=== PATIENT | male | born 1930 | race Caucasian/White ===

== ENCOUNTER 2016-09-17 20:23 | Emergency (ER) | payer MEDICARE ==
[~2016-09-17] VITALS: Ht 172.7 cm; Wt 65.8 kg
[~2016-09-17 20:23] MED LIST: CEPH-264 PO; CIPR250T PO; CIPR500T PO; DIPH25CA3 PO; GABA-586 PO; HYDR-2666 PO; INSU100I17 SQ; INSU100I27 SQ; INSU100V8 SQ; OMEP20CA5 PO; ONDA8TAB12 PO; PHEN-318 PO; VALA500T PO
[2016-09-17 21:45] LABS: BASO % 2 % (0-3); EOS % 1 % (0-3); HEMATOCRIT 24.6 % (39.0-53.0); HEMOGLOBIN 8.7 g/dL (13.0-17.5); LYMPH # 0.2 x10^3/uL (1.0-4.8); LYMPH % 27 % (24-48); MEAN CORPUSCULAR HEMOGLOBIN 36 pg (25-35); MEAN CORPUSCULAR HGB CONC 35 g/dL (31-37); MEAN CORPUSCULAR VOLUME 101 fL (79-100); MONO % 3 % (0-9); NEUT % 67 % (31-73); PLATELET COUNT 129 x10^3/uL (140-400); RED BLOOD COUNT 2.43 x10^6/uL (4.30-5.70); RED CELL DISTRIBUTION WIDTH 22.6 % (11.5-14.5)
[2016-09-17 21:51] LABS: WHITE BLOOD COUNT 0.9 x10^3/uL (4.0-11.0)
[2016-09-17 22:04] LABS: CREATININE 1.4 mg/dL (0.7-1.3); GFR 47.8; POTASSIUM 4.2 mmol/L (3.5-5.1)
[2016-09-17 22:10] VITALS: BP 160/72
[2016-09-17 22:11] LABS: OBC FLU VALID
[2016-09-17 22:13] LABS: PLT ESTIMATE DECREASED (ADEQUATE)
[2016-09-17 22:14] LABS: ANISOCYTOSIS SLIGHT; POIKILOCYTOSIS SLIGHT
[2016-09-17] MEDS ORDERED: OSEL75CA PO (22:21)
--- NOTE | 2016-09-17 22:21 | PHYS DOC ---
Past Medical History Past Medical History: Cancer, Diabetes-Type II Additional Past Medical Histor: bone marrow and prostate cancer Past Surgical History: Coronary Bypass Surgery Additional Past Surgical Histo: STENTS 2010, PARTIAL KIDNEY REMOVAL (RIGHT SIDE ) Alcohol Use: None Drug Use: None Adult General Chief Complaint Chief Complaint: FEVER HPI HPI Patient is a 86 year old male who presents with family for evaluation of fever today. He notes 2 days of rhinorrhea, dry cough, sore throat, and slightly worse chronic body aches. Family also notes recent RUE abrasion that they have performed local wound care to prevent another episode of cellulitis. He denies headache, chest pain, dyspnea, abdominal pain, nausea or vomiting, diarrhea, dysuria, rash. Review of Systems Review of Systems Constitutional: Denies fever or chills [] Eyes: Denies change in visual acuity, redness, or eye pain [] HENT: Denies nasal congestion or sore throat [] Respiratory: Denies cough or shortness of breath [] Cardiovascular: No additional information not addressed in HPI [] GI: Denies abdominal pain, nausea, vomiting, bloody stools or diarrhea [] : Denies dysuria or hematuria [] Musculoskeletal: Denies back pain or joint pain [] Integument: Denies rash or skin lesions [] Neurologic: Denies headache, focal weakness or sensory changes [] Endocrine: Denies polyuria or polydipsia [] Allergies Allergies Allergies Coded Allergies Type Severity Reaction Last Updated Verified Iodinated Contrast Media - Oral and Allergy Intermediate BAD RASH 08/17/16 Yes Physical Exam Physical Exam Constitutional: Well developed, well nourished, no acute distress, non-toxic appearance. [] HENT: Normocephalic, atraumatic, bilateral external ears normal, oropharynx moist, no oral exudates, nose normal. [] Eyes: PERRLA, EOMI, conjunctiva normal, no discharge. [] Neck: Normal range of motion, supple, no stridor. [] Cardiovascular:Heart rate regular rhythm [] Lungs & Thorax: Bilateral breath sounds clear to auscultation [] Abdomen: Bowel sounds normal, soft, no tenderness. [] Skin: Warm, dry, no erythema, no rash. [] Back: No tenderness, no CVA tenderness. [] Extremities: No tenderness, ROM intact, no edema. Has abrasion to right forearm with surrounding ecchymosis and no induration/crepitance/warmth/fluctuance [] Neurologic: Alert and oriented X 3, normal motor function, normal sensory function, no focal deficits noted. [] Psychologic: Affect normal, judgement normal, mood normal. [] Current Patient Data Vital Signs Vital Signs Date Time Temp Pulse Resp B/P Pulse Ox O2 Delivery O2 Flow Rate FiO2 09/17/16 22:10 83 22 160/72 97 Room Air 09/17/16 20:35 100.0 100.0 Lab Values Laboratory Tests Test 09/17/16 20:40 09/17/16 21:42 White Blood Count 0.9x10^3/uL (4.0-11.0) *L Red Blood Count 2.43x10^6/uL (4.30-5.70) L Hemoglobin 8.7g/dL (13.0-17.5) L Hematocrit 24.6% (39.0-53.0) L Mean Corpuscular Volume 101fL (79-100) H Mean Corpuscular Hemoglobin 36pg (25-35) H Mean Corpuscular Hemoglobin Concent 35g/dL (31-37) Red Cell Distribution Width 22.6% (11.5-14.5) H Platelet Count 129x10^3/uL (140-400) L Neutrophils (%) (Auto) 67% (31-73) Lymphocytes (%) (Auto) 27% (24-48) Monocytes (%) (Auto) 3% (0-9) Eosinophils (%) (Auto) 1% (0-3) Basophils (%) (Auto) 2% (0-3) Neutrophils # (Auto) 0.6x10^3uL (1.8-7.7) L Lymphocytes # (Auto) 0.2x10^3/uL (1.0-4.8) L Monocytes # (Auto) 0.0x10^3/uL (0.0-1.1) Eosinophils # (Auto) 0.0x10^3/uL (0.0-0.7) Basophils # (Auto) 0.0x10^3/uL (0.0-0.2) Segmented Neutrophils % 80% (35-66) H Lymphocytes % 16% (24-48) L Monocytes % 4% (0-10) Platelet Estimate Decreased (ADEQUATE) Poikilocytosis Slight Anisocytosis Slight Sodium Level 137mmol/L (136-145) Potassium Level 4.2mmol/L (3.5-5.1) Chloride Level 102mmol/L (98-107) Carbon Dioxide Level 26mmol/L (21-32) Anion Gap 9 (6-14) Blood Urea Nitrogen 24mg/dL (8-26) Creatinine 1.4mg/dL (0.7-1.3) H Estimated GFR (Cockcroft-Gault) 47.8 Glucose Level 231mg/dL (70-99) H Calcium Level 9.0mg/dL (8.5-10.1) Influenza Type A Antigen Positive (NEGATIVE) Influenza Type B Antigen Negative (NEGATIVE) Laboratory Tests 09/17/16 20:40 Laboratory Tests 09/17/16 20:40 Radiology/Procedures Radiology/Procedures Chest xray as interpreted by me with no acute cardiopulmonary disease process Course & Med Decision Making Course & Med Decision Making Pertinent Labs and Imaging studies reviewed. (See chart for details) Tested positive for influenza. Workup is otherwise unremarkable other than pancytopenia related to chemotherapy. He appears well and would like to go home. Recommend Tamiflu. Return precautions given. He and family understand and agree with plan. Dragon Disclaimer Dragon Disclaimer This electronic medical record was generated, in whole or in part, using a voice recognition dictation system. Departure Departure Impression: Primary Impression: Influenza A Disposition: HOME, SELF-CARE Condition: STABLE Referrals: EFREN BURNETT MD (PCP) Patient Instructions: Influenza, Adult, [id number] Additional Instructions: Take Tamiflu to help shorten flu symptoms. Follow up with your primary care doctor within 1 week. Return for any concerns. Scripts Oseltamivir Phosphate (Tamiflu)75 Mg Capsule1 Cap PO BID #10 CAP Prov:Rancho CURRY MD 09/17/16 Rancho CURRY MD Sep 17, 2016 22:21
--- NOTE | 2016-09-18 08:05 | RAD ---
Chest, 2 views, 09/17/2016: History: Cough and fever Comparison is made to a study from 02/11/2016. There has been a previous median sternotomy. The heart is within normal limits in size. There is calcific plaquing of the aorta. There is scarring over the right pulmonary apex. There are additional scattered parenchymal scars. No acute infiltrate is seen. There is a calcified granuloma in the right base. There is no evidence of pleural fluid. The bony structures are demineralized. IMPRESSION: 1. Parenchymal scarring. 2. No acute cardiopulmonary abnormality is detected with no significant change since 02/11/2016.
== END 2016-09-17 22:54 | disposition home or self-care (01) ==
LOC: ER 20:23
DX: J09.X2 Influenza due to identified novel influenza A virus with other respiratory manifestations (principal); E11.9 Type 2 diabetes mellitus without complications; Z95.1 Presence of aortocoronary bypass graft; Z95.5 Presence of coronary angioplasty implant and graft; Z91.041 Radiographic dye allergy status
CPT/HCPCS: 36415; 71020; 80048; 85007; 85027; 87804; 99285-25

== ENCOUNTER → 2016-11-01 | Outpatient (CLI) | payer MEDICARE ==
[2016-11-01] VITALS (7 sets, daily range): BP systolic 110–157; BP diastolic 53–61
[~2016-11-01] MED LIST changes: +ACETAMINOPHEN 325 MG TABLET. PO ONE; +DIPHENHYDRAMINE HCL 25 MG CAPSULE PO ONE; +FUROSEMIDE 20 MG/2 ML VIAL. IVP ONE; +OSEL75CA PO
[2016-11-01 08:49] LABS: HEMATOCRIT 22.2 % (39.0-53.0); HEMOGLOBIN 7.6 g/dL (13.0-17.5)
== END | disposition home or self-care (01) ==
LOC: OPS 08:05
PROVIDERS: ATTEND Internal Medicine Hematology & Oncology
DX: D46.9 Myelodysplastic syndrome, unspecified (principal)
CPT/HCPCS: 36415; 85014; 85018; 86850; 86900; 86901; 86920; P9016; Q0163; 36430; 96374

== ENCOUNTER 2017-02-01 18:24 | Inpatient (IN) | payer MEDICARE ==
[~2017-02-01] VITALS: Ht 170.2 cm; Wt 63.1 kg
[~2017-02-01 18:24] MED LIST changes: -ACETAMINOPHEN 325 MG TABLET. PO ONE; -DIPHENHYDRAMINE HCL 25 MG CAPSULE PO ONE; -FUROSEMIDE 20 MG/2 ML VIAL. IVP ONE; -HYDR-2666 PO; +HYDR-2758 PO
[2017-02-01 19:22] LABS: BASO % 1 % (0-3); EOS % 1 % (0-3); HEMATOCRIT 21.1 % (39.0-53.0); HEMOGLOBIN 7.4 g/dL (13.0-17.5); LYMPH # 0.2 x10^3/uL (1.0-4.8); LYMPH % 30 % (24-48); MEAN CORPUSCULAR HEMOGLOBIN 31 pg (25-35); MEAN CORPUSCULAR HGB CONC 35 g/dL (31-37); MEAN CORPUSCULAR VOLUME 90 fL (79-100); MONO % 16 % (0-9); NEUT % 53 % (31-73); PLATELET COUNT 51 x10^3/uL (140-400); RED BLOOD COUNT 2.35 x10^6/uL (4.30-5.70); RED CELL DISTRIBUTION WIDTH 15.9 % (11.5-14.5)
[2017-02-01 19:32] LABS: INR 1.3 (0.8-1.1); PROTHROMBIN TIME PATIENT 15.5 SEC (11.7-14.0); WHITE BLOOD COUNT 0.5 x10^3/uL (4.0-11.0)
[2017-02-01 19:34] LABS: CALCIUM 8.8 mg/dL (8.5-10.1); CREATININE 1.5 mg/dL (0.7-1.3); GFR 44.2; POTASSIUM 4.3 mmol/L (3.5-5.1)
[2017-02-01 19:41] LABS: ALBUMIN 2.9 g/dL (3.4-5.0); ALBUMIN/GLOBULIN RATIO 0.8 (1.0-1.7); MAGNESIUM 1.7 mg/dL (1.8-2.4); TOTAL BILIRUBIN 0.5 mg/dL (0.2-1.0); TOTAL PROTEIN 6.6 g/dL (6.4-8.2)
[2017-02-01] MEDS ORDERED: ACETAMINOPHEN 325 MG TABLET. PO PRN (20:00)
[2017-02-01] MEDS ORDERED: PIPERACILLIN/TAZOBACTAM 3.375 GM in IV NORMAL SALINE 50ML 50 ML IV ONE (20:00)
[2017-02-01] MEDS ORDERED: ONDANSETRON PF 4 MG/2 ML VIAL. IV PRN ×2 (20:00→20:15)
[2017-02-01 20:08] LABS: PLT ESTIMATE DECREASED (ADEQUATE)
[2017-02-01 20:12] LABS: TOXIC GRANULATION MOD
[2017-02-01] MEDS ORDERED: PIP/TAZO PER PHARMACY MC PRN (20:15)
[2017-02-01] MEDS ORDERED: DEXTROSE 50% 25 GM / 50ML DISP.SYRIN. IV PRN (20:15)
[2017-02-01] MEDS ORDERED: traMADol 50 MG TABLET PO PRN (20:15)
[2017-02-01] MEDS ORDERED: MAGNESIUM SULFATE 2GM 50 ML IV ONE (20:15)
[2017-02-01] MEDS ORDERED: DOCUSATE SODIUM 100 MG CAPSULE. PO PRN (20:15)
[2017-02-01] MEDS ORDERED: ALBUTEROL SULFATE 2.5 MG/3 ML NEBU. NEB PRN (20:15)
[2017-02-01] MEDS ORDERED: VANCOMYCIN 1.5 GM in IV NORMAL SALINE 500ML BAG 500 ML IV ONE (20:15)
[2017-02-01] MEDS ORDERED: hydrALAZINE 20 MG/ML VIAL. IVP PRN (20:15)
[2017-02-01] MEDS ORDERED: MORPHINE SULFATE 2 MG/ML DISP.SYRIN. IV PRN (20:15)
--- NOTE | 2017-02-01 20:22 | PDOC1 ---
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 Valle came to ER for fever. His daughter contributes to the history. She said he has been doing chemo with dr. Valle almost qweek, showed me the labs , usually WBC <1, last time 0.6, Hb about 8, gets 2u PRBC if <8, PLT last time 60s. Pt was found T 102 at home, cough with clear sputum x1week. no chest pain, dysuria, skin rash or wound. Has some nausea ,mild vomiting today, fell, not lost of consciousness. Also very weak. in ER, T 99.9, WBC 0.5, ANC 0.3, Hb 7.4, plt 51 Past Medical History Cardiovascular: CAD, HTN Heme/Onc: Other Endocrine: Diabetes Past Surgical History Past Surgical History: CABG Family History Family History: Hypertension Social History Smoke: Quit ALCOHOL: none Drugs: None Current Medications Current Medications Current Medications Medications (Trade) Dose Ordered Sig/Khadra Start Time Stop Time Status Last Admin Dose Admin Acetaminophen (Tylenol) 650 mg PRN Q4HRS PRN 02/01/17 20:00 02/02/17 19:59 Levofloxacin/ Dextrose 100 ml @ 100 mls/hr 1X ONCE 02/01/17 20:00 02/01/17 20:59 Ondansetron HCl (Zofran) 4 mg PRN Q8HRS PRN 02/01/17 20:00 02/02/17 19:59 Piperacillin Sod/ Tazobactam Sod 3.375 gm/Sodium Chloride 50 ml @ 100 mls/hr 1X ONCE 02/01/17 20:00 02/01/17 20:29 Tbo-Filgrastim (Granix) 300 mcg QHS 02/01/17 21:00 UNV Vancomycin HCl (Vanco Per Pharmacy) 1 each PRN DAILY PRN 02/01/17 20:00 UNV Vancomycin HCl 1.5 gm/Sodium Chloride 500 ml @ 250 mls/hr 1X ONCE 02/01/17 20:15 02/01/17 22:14 Allergies Allergies Allergies Coded Allergies Type Severity Reaction Last Updated Verified Iodinated Contrast- Oral and IV Dye Allergy Intermediate BAD RASH 01/20/17 Yes ROS Review of System CONSTITUTIONAL: No fever or chills EYES: No recent changes SKIN: No rash or itching CARDIOVASCULAR: No chest pain, syncope, palpitations, or edema RESPIRATORY: No SOB or cough GASTROINTESTINAL: No nausea, vomiting or abdominal pain NEUROLOGICAL: No headaches or weakness ENDOCRINE: No cold or heat intolerance GENITOURINARY: No urgency or frequency of urination MUSCULOSKELETAL: No back pain or joint pain LYMPHATICS: No enlarged lymph nodes PSYCHIATRIC: No anxiety or depression Physical Exam Physical Exam GEN.: No apparent distress. Alert and oriented. looks pale, but pleasant. HEENT: Head is normocephalic, atraumatic NECK: Supple. LUNGS: bl coarse bs HEART: RRR, S1, S2 present. Peripheral pulses intact ABDOMEN: Soft, nontender. Positive bowel sounds. EXTREMITIES: Without any cyanosis. NEUROLOGIC: Normal speech, normal tone PSYCHIATRIC: Normal affect, normal mood. SKIN: No ulcerations Vitals Vitals Vital Signs Date Time Temp Pulse Resp B/P (MAP) Pulse Ox O2 Delivery O2 Flow Rate FiO2 02/01/17 18:47 99.9 89 18 106/51 (69) 98 Room Air 99.9 Labs Labs Laboratory Tests Test 02/01/17 19:05 White Blood Count 0.5 x10^3/uL (4.0-11.0) Red Blood Count 2.35 x10^6/uL (4.30-5.70) Hemoglobin 7.4 g/dL (13.0-17.5) Hematocrit 21.1 % (39.0-53.0) Mean Corpuscular Volume 90 fL (79-100) Mean Corpuscular Hemoglobin 31 pg (25-35) Mean Corpuscular Hemoglobin Concent 35 g/dL (31-37) Red Cell Distribution Width 15.9 % (11.5-14.5) Platelet Count 51 x10^3/uL (140-400) Neutrophils (%) (Auto) 53 % (31-73) Lymphocytes (%) (Auto) 30 % (24-48) Monocytes (%) (Auto) 16 % (0-9) Eosinophils (%) (Auto) 1 % (0-3) Basophils (%) (Auto) 1 % (0-3) Neutrophils # (Auto) 0.3 x10^3uL (1.8-7.7) Lymphocytes # (Auto) 0.2 x10^3/uL (1.0-4.8) Monocytes # (Auto) 0.1 x10^3/uL (0.0-1.1) Eosinophils # (Auto) 0.0 x10^3/uL (0.0-0.7) Basophils # (Auto) 0.0 x10^3/uL (0.0-0.2) Segmented Neutrophils % 41 % (35-66) Band Neutrophils % 21 % (0-9) Lymphocytes % 33 % (24-48) Monocytes % 2 % (0-10) Myelocytes % 3 % (0-0) Toxic Granulation Mod Dohle Bodies Few Platelet Estimate Decreased (ADEQUATE) Prothrombin Time 15.5 SEC (11.7-14.0) Prothromb Time International Ratio 1.3 (0.8-1.1) Activated Partial Thromboplast Time 33 SEC (24-38) Sodium Level 134 mmol/L (136-145) Potassium Level 4.3 mmol/L (3.5-5.1) Chloride Level 100 mmol/L (98-107) Carbon Dioxide Level 21 mmol/L (21-32) Anion Gap 13 (6-14) Blood Urea Nitrogen 29 mg/dL (8-26) Creatinine 1.5 mg/dL (0.7-1.3) Estimated GFR (Cockcroft-Gault) 44.2 BUN/Creatinine Ratio 19 (6-20) Glucose Level 239 mg/dL (70-99) Lactic Acid Level 3.1 mmol/L (0.4-2.0) Calcium Level 8.8 mg/dL (8.5-10.1) Magnesium Level 1.7 mg/dL (1.8-2.4) Total Bilirubin 0.5 mg/dL (0.2-1.0) Aspartate Amino Transf (AST/SGOT) 42 U/L (15-37) Alanine Aminotransferase (ALT/SGPT) 64 U/L (16-63) Alkaline Phosphatase 69 U/L (46-116) Creatine Kinase 80 U/L (39-308) Troponin I Quantitative 0.029 ng/mL (0.000-0.055) Total Protein 6.6 g/dL (6.4-8.2) Albumin 2.9 g/dL (3.4-5.0) Albumin/Globulin Ratio 0.8 (1.0-1.7) Laboratory Tests Test 02/01/17 19:05 White Blood Count 0.5 x10^3/uL (4.0-11.0) Red Blood Count 2.35 x10^6/uL (4.30-5.70) Hemoglobin 7.4 g/dL (13.0-17.5) Hematocrit 21.1 % (39.0-53.0) Mean Corpuscular Volume 90 fL (79-100) Mean Corpuscular Hemoglobin 31 pg (25-35) Mean Corpuscular Hemoglobin Concent 35 g/dL (31-37) Red Cell Distribution Width 15.9 % (11.5-14.5) Platelet Count 51 x10^3/uL (140-400) Neutrophils (%) (Auto) 53 % (31-73) Lymphocytes (%) (Auto) 30 % (24-48) Monocytes (%) (Auto) 16 % (0-9) Eosinophils (%) (Auto) 1 % (0-3) Basophils (%) (Auto) 1 % (0-3) Neutrophils # (Auto) 0.3 x10^3uL (1.8-7.7) Lymphocytes # (Auto) 0.2 x10^3/uL (1.0-4.8) Monocytes # (Auto) 0.1 x10^3/uL (0.0-1.1) Eosinophils # (Auto) 0.0 x10^3/uL (0.0-0.7) Basophils # (Auto) 0.0 x10^3/uL (0.0-0.2) Segmented Neutrophils % 41 % (35-66) Band Neutrophils % 21 % (0-9) Lymphocytes % 33 % (24-48) Monocytes % 2 % (0-10) Myelocytes % 3 % (0-0) Toxic Granulation Mod Dohle Bodies Few Platelet Estimate Decreased (ADEQUATE) Prothrombin Time 15.5 SEC (11.7-14.0) Prothromb Time International Ratio 1.3 (0.8-1.1) Activated Partial Thromboplast Time 33 SEC (24-38) Sodium Level 134 mmol/L (136-145) Potassium Level 4.3 mmol/L (3.5-5.1) Chloride Level 100 mmol/L (98-107) Carbon Dioxide Level 21 mmol/L (21-32) Anion Gap 13 (6-14) Blood Urea Nitrogen 29 mg/dL (8-26) Creatinine 1.5 mg/dL (0.7-1.3) Estimated GFR (Cockcroft-Gault) 44.2 BUN/Creatinine Ratio 19 (6-20) Glucose Level 239 mg/dL (70-99) Lactic Acid Level 3.1 mmol/L (0.4-2.0) Calcium Level 8.8 mg/dL (8.5-10.1) Magnesium Level 1.7 mg/dL (1.8-2.4) Total Bilirubin 0.5 mg/dL (0.2-1.0) Aspartate Amino Transf (AST/SGOT) 42 U/L (15-37) Alanine Aminotransferase (ALT/SGPT) 64 U/L (16-63) Alkaline Phosphatase 69 U/L (46-116) Creatine Kinase 80 U/L (39-308) Troponin I Quantitative 0.029 ng/mL (0.000-0.055) Total Protein 6.6 g/dL (6.4-8.2) Albumin 2.9 g/dL (3.4-5.0) Albumin/Globulin Ratio 0.8 (1.0-1.7) VTE Prophylaxis Ordered VTE Prophylaxis Devices: Yes VTE Pharmacological Prophylaxi: No Assessment/Plan Assessment/Plan neutropenia fever with possible PNA pancytopenia with MDS on chemo h/o CAD with CABG HTN DM2 ON lantus 20u qhs lactate acidosis sepsis with Possible PNA hypomagnesemia ckd3 mild malnutrition mild elevated transaminitis plan: ID, onco consult 2u PRBC as per onco cont home meds no dvt ppx neutropenic isolation add vanco, zosyn for now, fu ua, ucx, bcx cough meds levemir 10u qhs, ssi for now replete Mag labs tmr ptot admit >2nights talked to family, FC for now NAVEED MAGDALENO MD Feb 01, 2017 20:22
[2017-02-01] MEDS ORDERED: IV NORMAL SALINE 1000ML BAG 1,000 ML IV ONE (21:30)
--- NOTE | 2017-02-01 21:32 | PHYS DOC ---
Past Medical History Past Medical History: Cancer, Diabetes-Type II Additional Past Medical Histor: bone marrow and prostate cancer Past Surgical History: Coronary Bypass Surgery Additional Past Surgical Histo: RENAL STENTS 2010 (RIGHT SIDE) Alcohol Use: None Drug Use: None Adult General Chief Complaint Chief Complaint: FEVER HPI HPI Patient is a 86 year old male presenting to the emergency department for evaluation of fever of 102 at home but was given Tylenol before coming to her emergency Department now he is afebrile. His a history of mild dysplastic syndrome and he is on chemotherapy currently and he says that he has been coughing but the cough is mostly nonproductive. He is in good spirits and appears nontoxic overall. Review of Systems Review of Systems Constitutional: + fever, chills [] Eyes: Denies change in visual acuity, redness, or eye pain [] HENT: Denies nasal congestion or sore throat [] Respiratory: + cough, No shortness of breath [] Cardiovascular: No additional information not addressed in HPI [] GI: Denies abdominal pain, nausea, vomiting, bloody stools or diarrhea [] : Denies dysuria or hematuria [] Musculoskeletal: Denies back pain or joint pain [] Integument: Denies rash or skin lesions [] Neurologic: Denies headache, focal weakness or sensory changes [] Allergies Allergies Allergies Coded Allergies Type Severity Reaction Last Updated Verified Iodinated Contrast- Oral and IV Dye Allergy Intermediate BAD RASH 01/20/17 Yes Physical Exam Physical Exam Constitutional: Well developed, well nourished, no acute distress, non-toxic appearance. [] HENT: Normocephalic, atraumatic, bilateral external ears normal, oropharynx moist, no oral exudates, nose normal. [] Eyes: PERRLA, EOMI, conjunctiva pale, no discharge. [] Neck: Normal range of motion, no tenderness, supple, no stridor. [] Cardiovascular:Heart rate regular rhythm, no murmur [] Lungs & Thorax: Bilateral breath sounds clear to auscultation [] Abdomen: Bowel sounds normal, soft, no tenderness, no masses, no pulsatile masses. [] Skin: Warm, dry, no erythema, no rash. [] Back: No tenderness, no CVA tenderness. [] Extremities: No tenderness, no cyanosis, no clubbing, ROM intact, no edema. [] Neurologic: Alert and oriented X 3, normal motor function, normal sensory function, no focal deficits noted. [] Current Patient Data Vital Signs Vital Signs Date Time Temp Pulse Resp B/P (MAP) Pulse Ox O2 Delivery O2 Flow Rate FiO2 02/01/17 18:47 99.9 89 18 106/51 (69) 98 Room Air 99.9 Lab Values Laboratory Tests Test 02/01/17 19:05 White Blood Count 0.5 x10^3/uL (4.0-11.0) *L Red Blood Count 2.35 x10^6/uL (4.30-5.70) L Hemoglobin 7.4 g/dL (13.0-17.5) L Hematocrit 21.1 % (39.0-53.0) L Mean Corpuscular Volume 90 fL (79-100) Mean Corpuscular Hemoglobin 31 pg (25-35) Mean Corpuscular Hemoglobin Concent 35 g/dL (31-37) Red Cell Distribution Width 15.9 % (11.5-14.5) H Platelet Count 51 x10^3/uL (140-400) L Neutrophils (%) (Auto) 53 % (31-73) Lymphocytes (%) (Auto) 30 % (24-48) Monocytes (%) (Auto) 16 % (0-9) H Eosinophils (%) (Auto) 1 % (0-3) Basophils (%) (Auto) 1 % (0-3) Neutrophils # (Auto) 0.3 x10^3uL (1.8-7.7) L Lymphocytes # (Auto) 0.2 x10^3/uL (1.0-4.8) L Monocytes # (Auto) 0.1 x10^3/uL (0.0-1.1) Eosinophils # (Auto) 0.0 x10^3/uL (0.0-0.7) Basophils # (Auto) 0.0 x10^3/uL (0.0-0.2) Segmented Neutrophils % 41 % (35-66) Band Neutrophils % 21 % (0-9) H Lymphocytes % 33 % (24-48) Monocytes % 2 % (0-10) Myelocytes % 3 % (0-0) H Toxic Granulation Mod Dohle Bodies Few Platelet Estimate Decreased (ADEQUATE) Prothrombin Time 15.5 SEC (11.7-14.0) H Prothrombin Time INR 1.3 (0.8-1.1) H PTT 33 SEC (24-38) Sodium Level 134 mmol/L (136-145) L Potassium Level 4.3 mmol/L (3.5-5.1) Chloride Level 100 mmol/L (98-107) Carbon Dioxide Level 21 mmol/L (21-32) Anion Gap 13 (6-14) Blood Urea Nitrogen 29 mg/dL (8-26) H Creatinine 1.5 mg/dL (0.7-1.3) H Estimated GFR (Cockcroft-Gault) 44.2 BUN/Creatinine Ratio 19 (6-20) Glucose Level 239 mg/dL (70-99) H Lactic Acid Level 3.1 mmol/L (0.4-2.0) H Calcium Level 8.8 mg/dL (8.5-10.1) Phosphorus Level 3.2 mg/dL (2.6-4.7) Magnesium Level 1.7 mg/dL (1.8-2.4) L Total Bilirubin 0.5 mg/dL (0.2-1.0) Aspartate Amino Transferase (AST) 42 U/L (15-37) H Alanine Aminotransferase (ALT) 64 U/L (16-63) H Alkaline Phosphatase 69 U/L (46-116) Creatine Kinase 80 U/L (39-308) Troponin I Quantitative 0.029 ng/mL (0.000-0.055) Total Protein 6.6 g/dL (6.4-8.2) Albumin 2.9 g/dL (3.4-5.0) L Albumin/Globulin Ratio 0.8 (1.0-1.7) L Laboratory Tests 02/01/17 19:05 Laboratory Tests 02/01/17 19:05 EKG EKG [] Radiology/Procedures Radiology/Procedures CX-ray shows right middle lobe pneumonia Course & Med Decision Making Course & Med Decision Making Patient is neutropenic febrile and has pneumonia with an elevated lactic acid and pancytopenia. Patient will be treated aggressively with fluids Granix, blood transfusion H Antibiotics and admitted for further observation and treatment. Patient and family aware and agreeable with plan. Dragon Disclaimer Dragon Disclaimer This electronic medical record was generated, in whole or in part, using a voice recognition dictation system. Departure Departure Impression: Primary Impression: HCAP (healthcare-associated pneumonia) Additional Impressions: Sepsis Pancytopenia Lactic acid acidosis Disposition: 09 ADMITTED INPATIENT Admitting Physician: Gucci Mercedes Condition: IMPROVED Referrals: EFREN BURNETT MD (PCP) Problem Qualifiers SARAI DUNCAN DO Feb 01, 2017 21:32
[2017-02-01] MEDS: VANCOMYCIN PER PHARMACY MC PRN ×2 (21:38→21:43)
[2017-02-01 23:00] VITALS: BP 106/45
[2017-02-01] MEDS: diphenhydrAMINE HCL 25 MG CAPSULE PO SCH (23:13)
[2017-02-01] MEDS: GABAPENTIN 300 MG CAPSULE. PO SCH (23:13)
[2017-02-01] MEDS: PIPERACILLIN/TAZOBACTAM 2.25 GM in IV NORMAL SALINE 50ML 50 ML IV SCH (23:14)
[2017-02-01] MEDS: TBO-FILGRASTIM 300 MCG/0.5 ML SYRINGE. SQ SCH (23:14)
[2017-02-01] MEDS: INSULIN DETEMIR 300 UNITS/3 ML INSULN.PEN. SQ SCH (23:18)
[2017-02-01 23:45] LABS: BILIRUBIN,URINE NEGATIVE (NEG); GLUCOSE,URINE 250 mg/dL (NEG); NITRITE,URINE NEGATIVE (NEG); PH,URINE 5.5; PROTEIN,URINE NEGATIVE (NEG-TRACE); UROBILINOGEN,URINE 0.2 mg/dL (0.2 mg/dL)
[2017-02-01 23:50] LABS: BACTERIA,URINE 0 /HPF (0-FEW); RBC,URINE 0 /HPF (0-2); WBC,URINE OCC /HPF (0-4)
[2017-02-02] VITALS (14 sets, daily range): BP systolic 87–128; BP diastolic 41–58
--- NOTE | 2017-02-02 05:00 | ACF ---
Admission Forms Criteria PNEUMONIA, HOSPITAL-ACQUIRED AND ATELECTASIS Clinical Indications for Inpatient Care (Place 'X' for any and all applicable criteria): Ongoing inpatient care may be indicated for hospital-acquired atelectasis or pneumonia[N] with ANY ONE of the following(2)(5)(47)(48)(49): [ ]I. Mechanical ventilation [N] [ ]II. Temperature less than 35 degrees C (95 degrees F) or greater than 39.5 degrees C (103.1 degrees F) [ ]III. Tachypnea (eg, respiratory rate greater than 30 breaths per minute) [X]IV. Hemodynamic instability [ ]V. Respiratory distress [ ]. Significant hypoxemia as indicated by ANY ONE of the following: [ ]a) Previously normal respiratory status with ANY ONE of the following: [ ]i) SaO2 less than 90% or PO2 less than 60 mm Hg (8.0 kPa )) on room air [ ]ii) Oxygen required to keep SaO2 greater than 90% [ ]b) Chronic baseline hypoxemia with significant deterioration (eg, O2 saturation decrease more than 5%) [ ]c) Required supplemental oxygen performable only in acute inpatient setting [ ]VII. Significant hypoventilation as indicated by ANY ONE of the following: [ ]a) Previously normal with PCO2 greater than 42 mm Hg (5.6 kPa) and pH less than 7.35 [ ]b) Documented PCO2 increase greater than 5 mm Hg (0.7 kPa) from disease baseline [ ]VIII.Severe secretion production requiring frequent suctioning Extended stay beyond goal length of stay for primary condition may be needed until ALL of the following are present(28)(29): [ ]a) Microbiologic cause of infection identified and appropriate antibiotic treatment in place, or satisfactory clinical response to empiric antibiotic therapy [ ]b) Hemodynamic stability [ ]c) No requirement for supplemental oxygen performable only in acute inpatient setting [ ]d) Chest tube absent or chest catheter management regimen established for next level of care [ ]e) Suctioning, pulmonary toilet, or other therapy performable at a lower level of care [ ]f) Fever absent, improved, or manageable at lower level of care [ ]g) Medical comorbidities manageable at a lower level of care The original [facility] content created by [employer] has been revised. The portions of the content which have been revised are identified through the use of italic text or in bold, and [facility] has neither reviewed nor approved the modified material. All other unmodified content is copyright [facility] Please see references footnoted in the original [facility] edition 2016 Admission Criteria Met?: Yes GILES ARANA Feb 02, 2017 05:00
[2017-02-02] MEDS: PIPERACILLIN/TAZOBACTAM 2.25 GM in IV NORMAL SALINE 50ML 50 ML IV SCH ×2 (05:45→12:46)
[2017-02-02 06:28] LABS: BASO % 0 % (0-3); EOS % 1 % (0-3); HEMATOCRIT 24.3 % (39.0-53.0); HEMOGLOBIN 8.5 g/dL (13.0-17.5); LYMPH # 0.3 x10^3/uL (1.0-4.8); LYMPH % 41 % (24-48); MEAN CORPUSCULAR HEMOGLOBIN 32 pg (25-35); MEAN CORPUSCULAR HGB CONC 35 g/dL (31-37); MEAN CORPUSCULAR VOLUME 91 fL (79-100); MONO % 9 % (0-9); NEUT % 50 % (31-73); PLATELET COUNT 41 x10^3/uL (140-400); RED BLOOD COUNT 2.67 x10^6/uL (4.30-5.70); RED CELL DISTRIBUTION WIDTH 16.6 % (11.5-14.5)
[2017-02-02 06:41] LABS: WHITE BLOOD COUNT 0.7 x10^3/uL (4.0-11.0)
[2017-02-02 06:57] LABS: ALBUMIN 2.5 g/dL (3.4-5.0); ALBUMIN/GLOBULIN RATIO 0.9 (1.0-1.7); CALCIUM 8.1 mg/dL (8.5-10.1); CREATININE 1.4 mg/dL (0.7-1.3); GFR 47.8; POTASSIUM 3.9 mmol/L (3.5-5.1); TOTAL BILIRUBIN 1.2 mg/dL (0.2-1.0); TOTAL PROTEIN 5.4 g/dL (6.4-8.2)
--- NOTE | 2017-02-02 08:08 | RAD ---
Chest radiograph 02/01/2017 at 1858 hours Indication: Cough and shortness of breath with fever Comparison: Chest radiograph 09/17/2016 Technique: Single portable upright view of the chest is provided. Findings: Median sternotomy wires are identified in the mediastinum. Cardiac mediastinal silhouette is borderline enlarged. There is airspace opacity in the right middle lobe new from the prior examination. Strandy density at the left lung base may represent subsegmental atelectasis and/or infiltrate. No pleural effusions. No pulmonary vascular congestion or pneumothorax. Mild emphysematous changes are present. There is demineralization of the visualized osseous structures. Impression: 1. Right middle lobe airspace disease compatible with pneumonia. Recommend 4-6 week follow-up radiograph to ensure resolution. 2. Left basilar airspace disease may represent atelectasis and/or multifocal infiltrate. Dr. Rodrigues was aware of this finding at 0433 hours on 02/02/2017.
--- NOTE | 2017-02-02 08:10 | PDOC ---
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 HTN DM2 ON lantus 20u qhs lactate acidosis sepsis with Possible PNA hypomagnesemia ckd3 mild malnutrition mild elevated transaminitis History of Present Illness History of Present Illness Feels better as per pt and dtr COUnts: WBC 0.7 from 0.5 PLAtelets steady at high 50s (baseline 60s) HGb up to 8.5 from 7 .4 after 2 pRBC CReat stable at 1.4 Official read CXR still pending PE: Dec BS sec to poor effort, but no wheezes, crackles PLAN: Await CXR Send sputum if good specimen (though this is usually low yoeld) Add pT/OT if not yet ordered COnt DVT prophy Dw pt and dtr Vitals Vitals Vital Signs Date Time Temp Pulse Resp B/P (MAP) Pulse Ox O2 Delivery O2 Flow Rate FiO2 02/02/17 07:00 98.4 83 18 110/53 (72) 91 Room Air 98.4 Physical Exam General: Alert, Oriented X3, Cooperative Heart: Regular rate, Normal S1, Normal S2 Lungs: Other (normal air entry) Abdomen: Normal bowel sounds, Soft Extremities: No clubbing, No cyanosis Skin: No rashes, No breakdown Labs LABS Laboratory Tests Test 02/01/17 19:05 02/01/17 23:30 02/02/17 06:10 02/02/17 07:47 White Blood Count 0.5 x10^3/uL (4.0-11.0) 0.7 x10^3/uL (4.0-11.0) Red Blood Count 2.35 x10^6/uL (4.30-5.70) 2.67 x10^6/uL (4.30-5.70) Hemoglobin 7.4 g/dL (13.0-17.5) 8.5 g/dL (13.0-17.5) Hematocrit 21.1 % (39.0-53.0) 24.3 % (39.0-53.0) Mean Corpuscular Volume 90 fL (79-100) 91 fL (79-100) Mean Corpuscular Hemoglobin 31 pg (25-35) 32 pg (25-35) Mean Corpuscular Hemoglobin Concent 35 g/dL (31-37) 35 g/dL (31-37) Red Cell Distribution Width 15.9 % (11.5-14.5) 16.6 % (11.5-14.5) Platelet Count 51 x10^3/uL (140-400) 41 x10^3/uL (140-400) Neutrophils (%) (Auto) 53 % (31-73) 50 % (31-73) Lymphocytes (%) (Auto) 30 % (24-48) 41 % (24-48) Monocytes (%) (Auto) 16 % (0-9) 9 % (0-9) Eosinophils (%) (Auto) 1 % (0-3) 1 % (0-3) Basophils (%) (Auto) 1 % (0-3) 0 % (0-3) Neutrophils # (Auto) 0.3 x10^3uL (1.8-7.7) 0.3 x10^3uL (1.8-7.7) Lymphocytes # (Auto) 0.2 x10^3/uL (1.0-4.8) 0.3 x10^3/uL (1.0-4.8) Monocytes # (Auto) 0.1 x10^3/uL (0.0-1.1) 0.1 x10^3/uL (0.0-1.1) Eosinophils # (Auto) 0.0 x10^3/uL (0.0-0.7) 0.0 x10^3/uL (0.0-0.7) Basophils # (Auto) 0.0 x10^3/uL (0.0-0.2) 0.0 x10^3/uL (0.0-0.2) Segmented Neutrophils % 41 % (35-66) Band Neutrophils % 21 % (0-9) Lymphocytes % 33 % (24-48) Monocytes % 2 % (0-10) Myelocytes % 3 % (0-0) Toxic Granulation Mod Dohle Bodies Few Platelet Estimate Decreased (ADEQUATE) Prothrombin Time 15.5 SEC (11.7-14.0) Prothromb Time International Ratio 1.3 (0.8-1.1) Activated Partial Thromboplast Time 33 SEC (24-38) Sodium Level 134 mmol/L (136-145) 139 mmol/L (136-145) Potassium Level 4.3 mmol/L (3.5-5.1) 3.9 mmol/L (3.5-5.1) Chloride Level 100 mmol/L (98-107) 105 mmol/L (98-107) Carbon Dioxide Level 21 mmol/L (21-32) 21 mmol/L (21-32) Anion Gap 13 (6-14) 13 (6-14) Blood Urea Nitrogen 29 mg/dL (8-26) 25 mg/dL (8-26) Creatinine 1.5 mg/dL (0.7-1.3) 1.4 mg/dL (0.7-1.3) Estimated GFR (Cockcroft-Gault) 44.2 47.8 BUN/Creatinine Ratio 19 (6-20) 18 (6-20) Glucose Level 239 mg/dL (70-99) 174 mg/dL (70-99) Lactic Acid Level 3.1 mmol/L (0.4-2.0) 1.9 mmol/L (0.4-2.0) Calcium Level 8.8 mg/dL (8.5-10.1) 8.1 mg/dL (8.5-10.1) Phosphorus Level 3.2 mg/dL (2.6-4.7) Magnesium Level 1.7 mg/dL (1.8-2.4) 2.2 mg/dL (1.8-2.4) Total Bilirubin 0.5 mg/dL (0.2-1.0) 1.2 mg/dL (0.2-1.0) Aspartate Amino Transf (AST/SGOT) 42 U/L (15-37) 40 U/L (15-37) Alanine Aminotransferase (ALT/SGPT) 64 U/L (16-63) 54 U/L (16-63) Alkaline Phosphatase 69 U/L (46-116) 59 U/L (46-116) Creatine Kinase 80 U/L (39-308) Troponin I Quantitative 0.029 ng/mL (0.000-0.055) Total Protein 6.6 g/dL (6.4-8.2) 5.4 g/dL (6.4-8.2) Albumin 2.9 g/dL (3.4-5.0) 2.5 g/dL (3.4-5.0) Albumin/Globulin Ratio 0.8 (1.0-1.7) 0.9 (1.0-1.7) Urine Collection Type Unknown Urine Color Yellow Urine Clarity Clear Urine pH 5.5 Urine Specific [place] 1.020 Urine Protein Negative mg/dL (NEG-TRACE) Urine Glucose (UA) 250 mg/dL (NEG) Urine Ketones (Stick) Negative mg/dL (NEG) Urine Blood Negative (NEG) Urine Nitrite Negative (NEG) Urine Bilirubin Negative (NEG) Urine Urobilinogen Dipstick 0.2 mg/dL (0.2 mg/dL) Urine Leukocyte Esterase Negative (NEG) Urine RBC 0 /HPF (0-2) Urine WBC Occ /HPF (0-4) Urine Squamous Epithelial Cells None /LPF Urine Bacteria 0 /HPF (0-FEW) Urine Hyaline Casts Few /HPF Urine Mucus Marked /LPF Glucose (Fingerstick) 153 mg/dL (70-99) Review of Systems Review of Systems denies 14 pt reviewed Assessment and Plan Assessmemt and Plan Problems Medical Problems: (1) Lactic acid acidosis Status: Acute (2) Pancytopenia Status: Acute (3) Sepsis Status: Acute Problems: Comment Review of Relevant I have reviewed the following items dora (where applicable) has been applied. Labs Laboratory Tests Test 02/01/17 19:05 02/01/17 23:30 02/02/17 06:10 02/02/17 07:47 White Blood Count 0.5 x10^3/uL (4.0-11.0) 0.7 x10^3/uL (4.0-11.0) Red Blood Count 2.35 x10^6/uL (4.30-5.70) 2.67 x10^6/uL (4.30-5.70) Hemoglobin 7.4 g/dL (13.0-17.5) 8.5 g/dL (13.0-17.5) Hematocrit 21.1 % (39.0-53.0) 24.3 % (39.0-53.0) Mean Corpuscular Volume 90 fL (79-100) 91 fL (79-100) Mean Corpuscular Hemoglobin 31 pg (25-35) 32 pg (25-35) Mean Corpuscular Hemoglobin Concent 35 g/dL (31-37) 35 g/dL (31-37) Red Cell Distribution Width 15.9 % (11.5-14.5) 16.6 % (11.5-14.5) Platelet Count 51 x10^3/uL (140-400) 41 x10^3/uL (140-400) Neutrophils (%) (Auto) 53 % (31-73) 50 % (31-73) Lymphocytes (%) (Auto) 30 % (24-48) 41 % (24-48) Monocytes (%) (Auto) 16 % (0-9) 9 % (0-9) Eosinophils (%) (Auto) 1 % (0-3) 1 % (0-3) Basophils (%) (Auto) 1 % (0-3) 0 % (0-3) Neutrophils # (Auto) 0.3 x10^3uL (1.8-7.7) 0.3 x10^3uL (1.8-7.7) Lymphocytes # (Auto) 0.2 x10^3/uL (1.0-4.8) 0.3 x10^3/uL (1.0-4.8) Monocytes # (Auto) 0.1 x10^3/uL (0.0-1.1) 0.1 x10^3/uL (0.0-1.1) Eosinophils # (Auto) 0.0 x10^3/uL (0.0-0.7) 0.0 x10^3/uL (0.0-0.7) Basophils # (Auto) 0.0 x10^3/uL (0.0-0.2) 0.0 x10^3/uL (0.0-0.2) Segmented Neutrophils % 41 % (35-66) Band Neutrophils % 21 % (0-9) Lymphocytes % 33 % (24-48) Monocytes % 2 % (0-10) Myelocytes % 3 % (0-0) Toxic Granulation Mod Dohle Bodies Few Platelet Estimate Decreased (ADEQUATE) Prothrombin Time 15.5 SEC (11.7-14.0) Prothromb Time International Ratio 1.3 (0.8-1.1) Activated Partial Thromboplast Time 33 SEC (24-38) Sodium Level 134 mmol/L (136-145) 139 mmol/L (136-145) Potassium Level 4.3 mmol/L (3.5-5.1) 3.9 mmol/L (3.5-5.1) Chloride Level 100 mmol/L (98-107) 105 mmol/L (98-107) Carbon Dioxide Level 21 mmol/L (21-32) 21 mmol/L (21-32) Anion Gap 13 (6-14) 13 (6-14) Blood Urea Nitrogen 29 mg/dL (8-26) 25 mg/dL (8-26) Creatinine 1.5 mg/dL (0.7-1.3) 1.4 mg/dL (0.7-1.3) Estimated GFR (Cockcroft-Gault) 44.2 47.8 BUN/Creatinine Ratio 19 (6-20) 18 (6-20) Glucose Level 239 mg/dL (70-99) 174 mg/dL (70-99) Lactic Acid Level 3.1 mmol/L (0.4-2.0) 1.9 mmol/L (0.4-2.0) Calcium Level 8.8 mg/dL (8.5-10.1) 8.1 mg/dL (8.5-10.1) Phosphorus Level 3.2 mg/dL (2.6-4.7) Magnesium Level 1.7 mg/dL (1.8-2.4) 2.2 mg/dL (1.8-2.4) Total Bilirubin 0.5 mg/dL (0.2-1.0) 1.2 mg/dL (0.2-1.0) Aspartate Amino Transf (AST/SGOT) 42 U/L (15-37) 40 U/L (15-37) Alanine Aminotransferase (ALT/SGPT) 64 U/L (16-63) 54 U/L (16-63) Alkaline Phosphatase 69 U/L (46-116) 59 U/L (46-116) Creatine Kinase 80 U/L (39-308) Troponin I Quantitative 0.029 ng/mL (0.000-0.055) Total Protein 6.6 g/dL (6.4-8.2) 5.4 g/dL (6.4-8.2) Albumin 2.9 g/dL (3.4-5.0) 2.5 g/dL (3.4-5.0) Albumin/Globulin Ratio 0.8 (1.0-1.7) 0.9 (1.0-1.7) Urine Collection Type Unknown Urine Color Yellow Urine Clarity Clear Urine pH 5.5 Urine Specific [place] 1.020 Urine Protein Negative mg/dL (NEG-TRACE) Urine Glucose (UA) 250 mg/dL (NEG) Urine Ketones (Stick) Negative mg/dL (NEG) Urine Blood Negative (NEG) Urine Nitrite Negative (NEG) Urine Bilirubin Negative (NEG) Urine Urobilinogen Dipstick 0.2 mg/dL (0.2 mg/dL) Urine Leukocyte Esterase Negative (NEG) Urine RBC 0 /HPF (0-2) Urine WBC Occ /HPF (0-4) Urine Squamous Epithelial Cells None /LPF Urine Bacteria 0 /HPF (0-FEW) Urine Hyaline Casts Few /HPF Urine Mucus Marked /LPF Glucose (Fingerstick) 153 mg/dL (70-99) Laboratory Tests Test 02/01/17 19:05 02/01/17 23:30 02/02/17 06:10 02/02/17 07:47 White Blood Count 0.5 x10^3/uL (4.0-11.0) 0.7 x10^3/uL (4.0-11.0) Red Blood Count 2.35 x10^6/uL (4.30-5.70) 2.67 x10^6/uL (4.30-5.70) Hemoglobin 7.4 g/dL (13.0-17.5) 8.5 g/dL (13.0-17.5) Hematocrit 21.1 % (39.0-53.0) 24.3 % (39.0-53.0) Mean Corpuscular Volume 90 fL (79-100) 91 fL (79-100) Mean Corpuscular Hemoglobin 31 pg (25-35) 32 pg (25-35) Mean Corpuscular Hemoglobin Concent 35 g/dL (31-37) 35 g/dL (31-37) Red Cell Distribution Width 15.9 % (11.5-14.5) 16.6 % (11.5-14.5) Platelet Count 51 x10^3/uL (140-400) 41 x10^3/uL (140-400) Neutrophils (%) (Auto) 53 % (31-73) 50 % (31-73) Lymphocytes (%) (Auto) 30 % (24-48) 41 % (24-48) Monocytes (%) (Auto) 16 % (0-9) 9 % (0-9) Eosinophils (%) (Auto) 1 % (0-3) 1 % (0-3) Basophils (%) (Auto) 1 % (0-3) 0 % (0-3) Neutrophils # (Auto) 0.3 x10^3uL (1.8-7.7) 0.3 x10^3uL (1.8-7.7) Lymphocytes # (Auto) 0.2 x10^3/uL (1.0-4.8) 0.3 x10^3/uL (1.0-4.8) Monocytes # (Auto) 0.1 x10^3/uL (0.0-1.1) 0.1 x10^3/uL (0.0-1.1) Eosinophils # (Auto) 0.0 x10^3/uL (0.0-0.7) 0.0 x10^3/uL (0.0-0.7) Basophils # (Auto) 0.0 x10^3/uL (0.0-0.2) 0.0 x10^3/uL (0.0-0.2) Segmented Neutrophils % 41 % (35-66) Band Neutrophils % 21 % (0-9) Lymphocytes % 33 % (24-48) Monocytes % 2 % (0-10) Myelocytes % 3 % (0-0) Toxic Granulation Mod Dohle Bodies Few Platelet Estimate Decreased (ADEQUATE) Prothrombin Time 15.5 SEC (11.7-14.0) Prothromb Time International Ratio 1.3 (0.8-1.1) Activated Partial Thromboplast Time 33 SEC (24-38) Sodium Level 134 mmol/L (136-145) 139 mmol/L (136-145) Potassium Level 4.3 mmol/L (3.5-5.1) 3.9 mmol/L (3.5-5.1) Chloride Level 100 mmol/L (98-107) 105 mmol/L (98-107) Carbon Dioxide Level 21 mmol/L (21-32) 21 mmol/L (21-32) Anion Gap 13 (6-14) 13 (6-14) Blood Urea Nitrogen 29 mg/dL (8-26) 25 mg/dL (8-26) Creatinine 1.5 mg/dL (0.7-1.3) 1.4 mg/dL (0.7-1.3) Estimated GFR (Cockcroft-Gault) 44.2 47.8 BUN/Creatinine Ratio 19 (6-20) 18 (6-20) Glucose Level 239 mg/dL (70-99) 174 mg/dL (70-99) Lactic Acid Level 3.1 mmol/L (0.4-2.0) 1.9 mmol/L (0.4-2.0) Calcium Level 8.8 mg/dL (8.5-10.1) 8.1 mg/dL (8.5-10.1) Phosphorus Level 3.2 mg/dL (2.6-4.7) Magnesium Level 1.7 mg/dL (1.8-2.4) 2.2 mg/dL (1.8-2.4) Total Bilirubin 0.5 mg/dL (0.2-1.0) 1.2 mg/dL (0.2-1.0) Aspartate Amino Transf (AST/SGOT) 42 U/L (15-37) 40 U/L (15-37) Alanine Aminotransferase (ALT/SGPT) 64 U/L (16-63) 54 U/L (16-63) Alkaline Phosphatase 69 U/L (46-116) 59 U/L (46-116) Creatine Kinase 80 U/L (39-308) Troponin I Quantitative 0.029 ng/mL (0.000-0.055) Total Protein 6.6 g/dL (6.4-8.2) 5.4 g/dL (6.4-8.2) Albumin 2.9 g/dL (3.4-5.0) 2.5 g/dL (3.4-5.0) Albumin/Globulin Ratio 0.8 (1.0-1.7) 0.9 (1.0-1.7) Urine Collection Type Unknown Urine Color Yellow Urine Clarity Clear Urine pH 5.5 Urine Specific [place] 1.020 Urine Protein Negative mg/dL (NEG-TRACE) Urine Glucose (UA) 250 mg/dL (NEG) Urine Ketones (Stick) Negative mg/dL (NEG) Urine Blood Negative (NEG) Urine Nitrite Negative (NEG) Urine Bilirubin Negative (NEG) Urine Urobilinogen Dipstick 0.2 mg/dL (0.2 mg/dL) Urine Leukocyte Esterase Negative (NEG) Urine RBC 0 /HPF (0-2) Urine WBC Occ /HPF (0-4) Urine Squamous Epithelial Cells None /LPF Urine Bacteria 0 /HPF (0-FEW) Urine Hyaline Casts Few /HPF Urine Mucus Marked /LPF Glucose (Fingerstick) 153 mg/dL (70-99) Medications Current Medications Tbo-Filgrastim (Granix) 300 mcg QHS SQ Last administered on 02/01/17 23:14; Start 02/01/17 at 21:00 Levofloxacin/ Dextrose 100 ml @ 100 mls/hr 1X ONCE IV Last administered on 20:53; Start 02/01/17 at 20:00; Stop 02/01/17 at 20:59; Status DC Vancomycin HCl (Vanco Per Pharmacy) 1 each PRN DAILY PRN MC SEE COMMENTS Last administered on 02/01/17 21:43; Start 02/01/17 at 20:00 Piperacillin Sod/ Tazobactam Sod 3.375 gm/Sodium Chloride 50 ml @ 100 mls/hr 1X ONCE IV Last administered on 02/01/17 20:52; Start 02/01/17 at 20:00; Stop 02/01/17 at 20:29; Status DC Ondansetron HCl (Zofran) 4 mg PRN Q8HRS PRN IV NAUSEA/VOMITING; Start 02/01/17 at 20:00; Stop 02/02/17 at 19:59 Acetaminophen (Tylenol) 650 mg PRN Q4HRS PRN PO FEVER Last administered on 02/01 23:41; Start 02/01/17 at 20:00; Stop 02/02/17 at 19:59 Vancomycin HCl 1.5 gm/Sodium Chloride 500 ml @ 250 mls/hr 1X ONCE IV Last administered on 02/01/17 20:15; Start 02/01/17 at 20:15; Stop 02/01/17 at 22:14 ; Status DC Diphenhydramine HCl (Benadryl) 25 mg QHS PO Last administered on 02/01/17 23: 13; Start 02/01/17 at 21:00 Insulin Detemir (Levemir) 10 units QHS SQ Last administered on 02/01/17 23:18 ; Start 02/01/17 at 21:00 Gabapentin (Neurontin) 300 mg BID PO Last administered on 02/01/17 23:13; Start 02/01/17 at 21:00 Pantoprazole Sodium (Protonix) 40 mg DAILYAC PO ; Start 02/02/17 at 07:30 Acetaminophen (Tylenol) 650 mg PRN Q6HRS PRN PO FEVER; Start 02/01/17 at 20:15 Ondansetron HCl (Zofran) 4 mg PRN Q6HRS PRN IV NAUSEA/VOMITING; Start 02/01/17 at 20:15 Morphine Sulfate 2 mg PRN Q2HR PRN IV PAIN; Start 02/01/17 at 20:15 Tramadol HCl (Ultram) 50 mg PRN Q6HRS PRN PO PAIN; Start 02/01/17 at 20:15 Hydralazine HCl (Apresoline) 10 mg PRN Q4HRS PRN IVP ELEVATED BP, SEE COMMENTS ; Start 02/01/17 at 20:15 Docusate Sodium (Colace) 100 mg PRN DAILY PRN PO CONSTIPATION; Start 02/01/17 at 20:15 Piperacillin Sod/ Tazobactam Sod (Zosyn Per Pharmacy) 1 each PRN DAILY PRN MC SEE COMMENTS; Start 02/01/17 at 20:15 Insulin Aspart (NovoLOG) 0-9 UNITS TIDWMEALS SQ ; Start 02/02/17 at 08:00 Dextrose (Dextrose 50%-Water Syringe) 12.5 gm PRN Q15MIN PRN IV SEE COMMENTS; Start 02/01/17 at 20:15 Albuterol Sulfate (Ventolin Neb Soln) 2.5 mg PRN Q4HRS PRN NEB SHORTNESS OF BREATH; Start 02/01/17 at 20:15 Guaifenesin (Robitussin) 200 mg PRN Q4HRS PRN PO COUGH; Start 02/01/17 at 20:15 Magnesium Sulfate/ Dextrose 50 ml @ 25 mls/hr 1X ONCE IV Last administered on 02/01/17 20:53; Start 02/01/17 at 20:15; Stop 02/01/17 at 22:14; Status DC Sodium Chloride 1,000 ml @ 1,000 mls/hr 1X ONCE IV Last administered on 21:30; Start 02/01/17 at 21:30; Stop 02/01/17 at 22:29; Status DC Piperacillin Sod/ Tazobactam Sod 2.25 gm/Sodium Chloride 50 ml @ 100 mls/hr Q6HRS IV Last administered on 02/02/17 05:45; Start 02/02/17 at 00:00 Vancomycin HCl 1 gm/Sodium Chloride 250 ml @ 250 mls/hr Q24H IV ; Start at 20:00 Vancomycin HCl 1 each 1X ONCE MC ; Start 02/03/17 at 19:30; Stop 02/03/17 at 19 :31 Active Scripts Active Tamiflu (Oseltamivir Phosphate) 75 Mg Capsule 1 Cap PO BID Reported Zofran Odt (Ondansetron) 8 Mg Tab.rapdis 1 Tab PO PRN PRN Diphenhydramine Hcl 25 Mg Capsule 25 Mg PO QHS Levemir Flextouch (Insulin Detemir) 100 Unit/1 Ml Insuln.pen 10 Unit SQ QHS Prilosec (Omeprazole) 20 Mg Capsule.dr 20 Mg PO DAILY Gabapentin 300 Mg Capsule 300 Mg PO BID Vitals/I & O Vital Sign - Last 24 Hours 02/01/17 02/01/17 02/01/17 02/01/17 18:47 19:30 20:00 20:30 Temp 99.9 99.9 Pulse 89 74 72 86 Resp 18 32 31 30 B/P (MAP) 106/51 (69) 111/53 (72) 129/58 (81) 140/55 (83) Pulse Ox 98 97 98 89 O2 Delivery Room Air Room Air 02/01/17 02/01/17 02/01/17 02/01/17 21:00 21:30 23:00 23:53 Temp 101.0 101.0 Pulse 92 92 94 Resp 24 25 20 B/P (MAP) 127/72 (90) 145/62 (89) 106/45 (65) Pulse Ox 96 93 O2 Delivery Room Air Room Air 02/02/17 02/02/17 02/02/1717 01:15 01:30 02:30 03:14 Temp 99.7 99.0 98.8 98.8 99.7 99.0 98.8 98.8 Pulse 84 84 81 81 Resp 18 18 20 20 B/P (MAP) 107/46 99/45 87/46 87/46 (60) Pulse Ox 94 O2 Delivery Room Air 02/02/17 02/02/17 02/02/17 02/02/17 03:30 03:52 04:07 05:07 Temp 99.7 99.7 99.3 98.2 99.7 99.7 99.3 98.2 Pulse 77 77 80 87 Resp 20 20 20 20 B/P (MAP) 94/41 94/41 98/47 110/56 02/02/17 02/02/17 06:00 07:00 Temp 99.3 98.4 99.3 98.4 Pulse 83 83 Resp 20 18 B/P (MAP) 116/52 110/53 (72) Pulse Ox 91 O2 Delivery Room Air Intake and Output 02/01/17 02/01/17 02/02/17 15:00 23:00 07:00 Intake Total 50 ml 3280 ml Output Total 250 ml Balance 50 ml 3030 ml PANKAJ FUENTES MD Feb 02, 2017 08:10
[2017-02-02] MEDS: GABAPENTIN 300 MG CAPSULE. PO SCH ×2 (08:29→20:27)
[2017-02-02] MEDS: PANTOPRAZOLE 40 MG TABLET.DR. PO SCH (08:30)
--- NOTE | 2017-02-02 08:31 | PDOC2 ---
IM Consult Reason for consult Sepsis Referring physician Dr. 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 Valle. His last dose was a month ago and his daughter states he will not receive any more as it is not making a difference. Received Neupogen or neulasta last week and neupogen last pm in ER His daughter contributes to the history he began to feel weak yesterday . His has had a small cold. 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 No bug bites or tick bites . Pt was found T 102 at home yesterday, cough with clear sputum x1week. no chest pain, dysuria, skin rash or wound. Has some nausea, mild vomiting today, fell - more of a slide down and bump only his arm, no los of consciousness. in ER, T 99.9, WBC 0.5, ANC 0.3, Hb 7.4, plt 51 During the interview he aspirated some water and then vomited into the garbage can. State he is ok Problems: Past Medical History Cardiovascular: CAD, HTN Heme/Onc: Other Endocrine: Diabetes Past Surgical History Past Surgical History: CABG Past Family History Family History: Hypertension Review of Symptoms Review of Symptoms General ROS: positive for - fever, weakness Psychological ROS: negative Ophthalmic ROS: negative ENT ROS: negative -no sinus drainage Allergy and Immunology ROS: negative Hematology and Lymphatic: no bleeding Endocrine ROS: negative Respiratory ROS: no dyspnea. Cardiovascular ROS: no chest pain or dyspnea on exertion Gastrointestinal ROS: no abdominal pain, change in bowel habits, or black or bloody stools Genito-Urinary ROS: no dysuria, trouble voiding, or hematuria Musculoskeletal ROS: no pain Neurological ROS: negative Dermatological ROS: no rash Medications Current Medications Acetaminophen (Tylenol) 650 mg PRN Q4HRS PRN PO FEVER Last administered on 02/01t 23:41; Start 02/01/17 at 20:00; Stop 02/02/17 at 19:59 Acetaminophen (Tylenol) 650 mg PRN Q6HRS PRN PO FEVER; Start 02/01/17 at 20:15 Albuterol Sulfate (Ventolin Neb Soln) 2.5 mg PRN Q4HRS PRN NEB SHORTNESS OF BREATH; Start 02/01/17 at 20:15 Dextrose (Dextrose 50%-Water Syringe) 12.5 gm PRN Q15MIN PRN IV SEE COMMENTS; Start 02/01/17 at 20:15 Diphenhydramine HCl (Benadryl) 25 mg QHS PO Last administered on 02/01/17 23: 13; Start 02/01/17 at 21:00 Docusate Sodium (Colace) 100 mg PRN DAILY PRN PO CONSTIPATION; Start 02/01/17 at 20:15 Gabapentin (Neurontin) 300 mg BID PO Last administered on 02/01/17 23:13; Start 02/01/17 at 21:00 Guaifenesin (Robitussin) 200 mg PRN Q4HRS PRN PO COUGH; Start 02/01/17 at 20:15 Hydralazine HCl (Apresoline) 10 mg PRN Q4HRS PRN IVP ELEVATED BP, SEE COMMENTS ; Start 02/01/17 at 20:15 Insulin Aspart (NovoLOG) 0-9 UNITS TIDWMEALS SQ ; Start 02/02/17 at 08:00 Insulin Detemir (Levemir) 10 units QHS SQ Last administered on 02/01/17 23:18 ; Start 02/01/17 at 21:00 Levofloxacin/ Dextrose 100 ml @ 100 mls/hr 1X ONCE IV Last administered on 20:53; Start 02/01/17 at 20:00; Stop 02/01/17 at 20:59; Status DC Magnesium Sulfate/ Dextrose 50 ml @ 25 mls/hr 1X ONCE IV Last administered on 02/01/17 20:53; Start 02/01/17 at 20:15; Stop 02/01/17 at 22:14; Status DC Morphine Sulfate 2 mg PRN Q2HR PRN IV PAIN; Start 02/01/17 at 20:15 Ondansetron HCl (Zofran) 4 mg PRN Q6HRS PRN IV NAUSEA/VOMITING; Start 02/01/17 at 20:15 Ondansetron HCl (Zofran) 4 mg PRN Q8HRS PRN IV NAUSEA/VOMITING; Start 02/01/17 at 20:00; Stop 02/02/17 at 19:59 Pantoprazole Sodium (Protonix) 40 mg DAILYAC PO ; Start 02/02/17 at 07:30 Piperacillin Sod/ Tazobactam Sod (Zosyn Per Pharmacy) 1 each PRN DAILY PRN MC SEE COMMENTS; Start 02/01/17 at 20:15 Piperacillin Sod/ Tazobactam Sod 2.25 gm/Sodium Chloride 50 ml @ 100 mls/hr Q6HRS IV Last administered on 02/02/17 05:45; Start 02/02/17 at 00:00 Piperacillin Sod/ Tazobactam Sod 3.375 gm/Sodium Chloride 50 ml @ 100 mls/hr 1X ONCE IV Last administered on 02/01/17 20:52; Start 02/01/17 at 20:00; Stop 02/01/17 at 20:29; Status DC Sodium Chloride 1,000 ml @ 1,000 mls/hr 1X ONCE IV Last administered on 21:30; Start 02/01/17 at 21:30; Stop 02/01/17 at 22:29; Status DC Tbo-Filgrastim (Granix) 300 mcg QHS SQ Last administered on 02/01/17 23:14; Start 02/01/17 at 21:00 Tramadol HCl (Ultram) 50 mg PRN Q6HRS PRN PO PAIN; Start 02/01/17 at 20:15 Vancomycin HCl 1 each 1X ONCE MC ; Start 02/03/17 at 19:30; Stop 02/03/17 at 19 :31 Vancomycin HCl (Vanco Per Pharmacy) 1 each PRN DAILY PRN MC SEE COMMENTS Last administered on 02/01/17 21:43; Start 02/01/17 at 20:00 Vancomycin HCl 1.5 gm/Sodium Chloride 500 ml @ 250 mls/hr 1X ONCE IV Last administered on 02/01/17 20:15; Start 02/01/17 at 20:15; Stop 02/01/17 at 22:14 ; Status DC Vancomycin HCl 1 gm/Sodium Chloride 250 ml @ 250 mls/hr Q24H IV ; Start at 20:00 Allergy Allergies Coded Allergies Type Severity Reaction Last Updated Verified Iodinated Contrast- Oral and IV Dye Allergy Intermediate BAD RASH 01/20/17 Yes Physical Exam Physical Exam General appearance - alert,well appearing, and in no distress and oriented to person, place, and time, pleasant. Eating breakfast Mental Status - alert, oriented to person, place, and time, affect appropriate to mood Head - normal, PEERLA, OC/Op - clear Chest - clear to auscultation, no wheezes, rales or rhonchi, symmetric air entry Heart - S1 and S2 normal Abdomen - soft, nontender, nondistended, no masses or organomegaly Neurological - alert and oriented Musculoskeletal - no muscular tenderness noted Extremities - no pedal edema, thin Skin - warm and dry Labs Laboratory Tests Test 02/01/17 19:05 02/01/17 23:30 02/02/17 06:10 02/02/17 07:47 White Blood Count 0.5 x10^3/uL (4.0-11.0) 0.7 x10^3/uL (4.0-11.0) Red Blood Count 2.35 x10^6/uL (4.30-5.70) 2.67 x10^6/uL (4.30-5.70) Hemoglobin 7.4 g/dL (13.0-17.5) 8.5 g/dL (13.0-17.5) Hematocrit 21.1 % (39.0-53.0) 24.3 % (39.0-53.0) Mean Corpuscular Volume 90 fL (79-100) 91 fL (79-100) Mean Corpuscular Hemoglobin 31 pg (25-35) 32 pg (25-35) Mean Corpuscular Hemoglobin Concent 35 g/dL (31-37) 35 g/dL (31-37) Red Cell Distribution Width 15.9 % (11.5-14.5) 16.6 % (11.5-14.5) Platelet Count 51 x10^3/uL (140-400) 41 x10^3/uL (140-400) Neutrophils (%) (Auto) 53 % (31-73) 50 % (31-73) Lymphocytes (%) (Auto) 30 % (24-48) 41 % (24-48) Monocytes (%) (Auto) 16 % (0-9) 9 % (0-9) Eosinophils (%) (Auto) 1 % (0-3) 1 % (0-3) Basophils (%) (Auto) 1 % (0-3) 0 % (0-3) Neutrophils # (Auto) 0.3 x10^3uL (1.8-7.7) 0.3 x10^3uL (1.8-7.7) Lymphocytes # (Auto) 0.2 x10^3/uL (1.0-4.8) 0.3 x10^3/uL (1.0-4.8) Monocytes # (Auto) 0.1 x10^3/uL (0.0-1.1) 0.1 x10^3/uL (0.0-1.1) Eosinophils # (Auto) 0.0 x10^3/uL (0.0-0.7) 0.0 x10^3/uL (0.0-0.7) Basophils # (Auto) 0.0 x10^3/uL (0.0-0.2) 0.0 x10^3/uL (0.0-0.2) Segmented Neutrophils % 41 % (35-66) Band Neutrophils % 21 % (0-9) Lymphocytes % 33 % (24-48) Monocytes % 2 % (0-10) Myelocytes % 3 % (0-0) Toxic Granulation Mod Dohle Bodies Few Platelet Estimate Decreased (ADEQUATE) Prothrombin Time 15.5 SEC (11.7-14.0) Prothromb Time International Ratio 1.3 (0.8-1.1) Activated Partial Thromboplast Time 33 SEC (24-38) Sodium Level 134 mmol/L (136-145) 139 mmol/L (136-145) Potassium Level 4.3 mmol/L (3.5-5.1) 3.9 mmol/L (3.5-5.1) Chloride Level 100 mmol/L (98-107) 105 mmol/L (98-107) Carbon Dioxide Level 21 mmol/L (21-32) 21 mmol/L (21-32) Anion Gap 13 (6-14) 13 (6-14) Blood Urea Nitrogen 29 mg/dL (8-26) 25 mg/dL (8-26) Creatinine 1.5 mg/dL (0.7-1.3) 1.4 mg/dL (0.7-1.3) Estimated GFR (Cockcroft-Gault) 44.2 47.8 BUN/Creatinine Ratio 19 (6-20) 18 (6-20) Glucose Level 239 mg/dL (70-99) 174 mg/dL (70-99) Lactic Acid Level 3.1 mmol/L (0.4-2.0) 1.9 mmol/L (0.4-2.0) Calcium Level 8.8 mg/dL (8.5-10.1) 8.1 mg/dL (8.5-10.1) Phosphorus Level 3.2 mg/dL (2.6-4.7) Magnesium Level 1.7 mg/dL (1.8-2.4) 2.2 mg/dL (1.8-2.4) Total Bilirubin 0.5 mg/dL (0.2-1.0) 1.2 mg/dL (0.2-1.0) Aspartate Amino Transf (AST/SGOT) 42 U/L (15-37) 40 U/L (15-37) Alanine Aminotransferase (ALT/SGPT) 64 U/L (16-63) 54 U/L (16-63) Alkaline Phosphatase 69 U/L (46-116) 59 U/L (46-116) Creatine Kinase 80 U/L (39-308) Troponin I Quantitative 0.029 ng/mL (0.000-0.055) Total Protein 6.6 g/dL (6.4-8.2) 5.4 g/dL (6.4-8.2) Albumin 2.9 g/dL (3.4-5.0) 2.5 g/dL (3.4-5.0) Albumin/Globulin Ratio 0.8 (1.0-1.7) 0.9 (1.0-1.7) Urine Collection Type Unknown Urine Color Yellow Urine Clarity Clear Urine pH 5.5 Urine Specific Zaleski 1.020 Urine Protein Negative mg/dL (NEG-TRACE) Urine Glucose (UA) 250 mg/dL (NEG) Urine Ketones (Stick) Negative mg/dL (NEG) Urine Blood Negative (NEG) Urine Nitrite Negative (NEG) Urine Bilirubin Negative (NEG) Urine Urobilinogen Dipstick 0.2 mg/dL (0.2 mg/dL) Urine Leukocyte Esterase Negative (NEG) Urine RBC 0 /HPF (0-2) Urine WBC Occ /HPF (0-4) Urine Squamous Epithelial Cells None /LPF Urine Bacteria 0 /HPF (0-FEW) Urine Hyaline Casts Few /HPF Urine Mucus Marked /LPF Glucose (Fingerstick) 153 mg/dL (70-99) Laboratory Tests Test 02/01/17 19:05 02/01/17 23:30 02/02/17 06:10 02/02/17 07:47 White Blood Count 0.5 x10^3/uL (4.0-11.0) 0.7 x10^3/uL (4.0-11.0) Red Blood Count 2.35 x10^6/uL (4.30-5.70) 2.67 x10^6/uL (4.30-5.70) Hemoglobin 7.4 g/dL (13.0-17.5) 8.5 g/dL (13.0-17.5) Hematocrit 21.1 % (39.0-53.0) 24.3 % (39.0-53.0) Mean Corpuscular Volume 90 fL (79-100) 91 fL (79-100) Mean Corpuscular Hemoglobin 31 pg (25-35) 32 pg (25-35) Mean Corpuscular Hemoglobin Concent 35 g/dL (31-37) 35 g/dL (31-37) Red Cell Distribution Width 15.9 % (11.5-14.5) 16.6 % (11.5-14.5) Platelet Count 51 x10^3/uL (140-400) 41 x10^3/uL (140-400) Neutrophils (%) (Auto) 53 % (31-73) 50 % (31-73) Lymphocytes (%) (Auto) 30 % (24-48) 41 % (24-48) Monocytes (%) (Auto) 16 % (0-9) 9 % (0-9) Eosinophils (%) (Auto) 1 % (0-3) 1 % (0-3) Basophils (%) (Auto) 1 % (0-3) 0 % (0-3) Neutrophils # (Auto) 0.3 x10^3uL (1.8-7.7) 0.3 x10^3uL (1.8-7.7) Lymphocytes # (Auto) 0.2 x10^3/uL (1.0-4.8) 0.3 x10^3/uL (1.0-4.8) Monocytes # (Auto) 0.1 x10^3/uL (0.0-1.1) 0.1 x10^3/uL (0.0-1.1) Eosinophils # (Auto) 0.0 x10^3/uL (0.0-0.7) 0.0 x10^3/uL (0.0-0.7) Basophils # (Auto) 0.0 x10^3/uL (0.0-0.2) 0.0 x10^3/uL (0.0-0.2) Segmented Neutrophils % 41 % (35-66) Band Neutrophils % 21 % (0-9) Lymphocytes % 33 % (24-48) Monocytes % 2 % (0-10) Myelocytes % 3 % (0-0) Toxic Granulation Mod Dohle Bodies Few Platelet Estimate Decreased (ADEQUATE) Prothrombin Time 15.5 SEC (11.7-14.0) Prothromb Time International Ratio 1.3 (0.8-1.1) Activated Partial Thromboplast Time 33 SEC (24-38) Sodium Level 134 mmol/L (136-145) 139 mmol/L (136-145) Potassium Level 4.3 mmol/L (3.5-5.1) 3.9 mmol/L (3.5-5.1) Chloride Level 100 mmol/L (98-107) 105 mmol/L (98-107) Carbon Dioxide Level 21 mmol/L (21-32) 21 mmol/L (21-32) Anion Gap 13 (6-14) 13 (6-14) Blood Urea Nitrogen 29 mg/dL (8-26) 25 mg/dL (8-26) Creatinine 1.5 mg/dL (0.7-1.3) 1.4 mg/dL (0.7-1.3) Estimated GFR (Cockcroft-Gault) 44.2 47.8 BUN/Creatinine Ratio 19 (6-20) 18 (6-20) Glucose Level 239 mg/dL (70-99) 174 mg/dL (70-99) Lactic Acid Level 3.1 mmol/L (0.4-2.0) 1.9 mmol/L (0.4-2.0) Calcium Level 8.8 mg/dL (8.5-10.1) 8.1 mg/dL (8.5-10.1) Phosphorus Level 3.2 mg/dL (2.6-4.7) Magnesium Level 1.7 mg/dL (1.8-2.4) 2.2 mg/dL (1.8-2.4) Total Bilirubin 0.5 mg/dL (0.2-1.0) 1.2 mg/dL (0.2-1.0) Aspartate Amino Transf (AST/SGOT) 42 U/L (15-37) 40 U/L (15-37) Alanine Aminotransferase (ALT/SGPT) 64 U/L (16-63) 54 U/L (16-63) Alkaline Phosphatase 69 U/L (46-116) 59 U/L (46-116) Creatine Kinase 80 U/L (39-308) Troponin I Quantitative 0.029 ng/mL (0.000-0.055) Total Protein 6.6 g/dL (6.4-8.2) 5.4 g/dL (6.4-8.2) Albumin 2.9 g/dL (3.4-5.0) 2.5 g/dL (3.4-5.0) Albumin/Globulin Ratio 0.8 (1.0-1.7) 0.9 (1.0-1.7) Urine Collection Type Unknown Urine Color Yellow Urine Clarity Clear Urine pH 5.5 Urine Specific Zaleski 1.020 Urine Protein Negative mg/dL (NEG-TRACE) Urine Glucose (UA) 250 mg/dL (NEG) Urine Ketones (Stick) Negative mg/dL (NEG) Urine Blood Negative (NEG) Urine Nitrite Negative (NEG) Urine Bilirubin Negative (NEG) Urine Urobilinogen Dipstick 0.2 mg/dL (0.2 mg/dL) Urine Leukocyte Esterase Negative (NEG) Urine RBC 0 /HPF (0-2) Urine WBC Occ /HPF (0-4) Urine Squamous Epithelial Cells None /LPF Urine Bacteria 0 /HPF (0-FEW) Urine Hyaline Casts Few /HPF Urine Mucus Marked /LPF Glucose (Fingerstick) 153 mg/dL (70-99) Vitals Vital Signs Date Time Temp Pulse Resp B/P (MAP) Pulse Ox O2 Delivery O2 Flow Rate FiO2 7/13/17 07:00 98.4 83 18 110/53 (72) 91 Room Air 98.4 Assessment Assessment Fever Neutropenia - s/p chemo last month but will not take anymore. Received Neupogen or neulasta last week and neupogen last pm MDS Aspiration - d/w nursing/Dr. Diaz cough CKD H/o MSSA cellulitis Plan Plan Agree with Vanc/Zosyn/Levofloxacin (q 48) Check strep urinary antigen May benefit from further Neupogen May need speech eval F/u labs in am and cults D/w daughter D/w Dr. Diaz Thank you AKIN NEFF MD Feb 02, 2017 08:31
[2017-02-02] MEDS: INSULIN ASPART 300 UNITS/3 ML INSULN.PEN SQ SCH ×3 (08:36→17:58)
[2017-02-02 10:18] LABS: PLT ESTIMATE DECREASED (ADEQUATE)
--- NOTE | 2017-02-02 11:12 | PDOC2 ---
CONSULT Date of Consult Date of Consult DATE: 02/02/17 TIME: 11:05 Past Medical History Cardiovascular: CAD, HTN Heme/Onc: Other Endocrine: Diabetes Past Surgical History Past Surgical History: CABG Family History Family History: Hypertension Social History Quit ALCOHOL: none Drugs: None Current Problem List Problem List Problems Medical Problems: (1) Lactic acid acidosis Status: Acute (2) Pancytopenia Status: Acute (3) Sepsis Status: Acute Current Medications Current Medications Current Medications Tbo-Filgrastim (Granix) 300 mcg QHS SQ Last administered on 02/01/17 23:14; Start 02/01/17 at 21:00 Levofloxacin/ Dextrose 100 ml @ 100 mls/hr 1X ONCE IV Last administered on 20:53; Start 02/01/17 at 20:00; Stop 02/01/17 at 20:59; Status DC Vancomycin HCl (Vanco Per Pharmacy) 1 each PRN DAILY PRN MC SEE COMMENTS Last administered on 02/01/17 21:43; Start 02/01/17 at 20:00 Piperacillin Sod/ Tazobactam Sod 3.375 gm/Sodium Chloride 50 ml @ 100 mls/hr 1X ONCE IV Last administered on 02/01/17 20:52; Start 02/01/17 at 20:00; Stop 02/01/17 at 20:29; Status DC Ondansetron HCl (Zofran) 4 mg PRN Q8HRS PRN IV NAUSEA/VOMITING; Start 02/01/17 at 20:00; Stop 02/02/17 at 19:59 Acetaminophen (Tylenol) 650 mg PRN Q4HRS PRN PO FEVER Last administered on 02/01 23:41; Start 02/01/17 at 20:00; Stop 02/02/17 at 19:59 Vancomycin HCl 1.5 gm/Sodium Chloride 500 ml @ 250 mls/hr 1X ONCE IV Last administered on 02/01/17 20:15; Start 02/01/17 at 20:15; Stop 02/01/17 at 22:14 ; Status DC Diphenhydramine HCl (Benadryl) 25 mg QHS PO Last administered on 02/01/17 23: 13; Start 02/01/17 at 21:00 Insulin Detemir (Levemir) 10 units QHS SQ Last administered on 02/01/17 23:18 ; Start 02/01/17 at 21:00 Gabapentin (Neurontin) 300 mg BID PO Last administered on 02/02/17 08:29; Start 02/01/17 at 21:00 Pantoprazole Sodium (Protonix) 40 mg DAILYAC PO Last administered on 02/02/17 08:30; Start 02/02/17 at 07:30 Acetaminophen (Tylenol) 650 mg PRN Q6HRS PRN PO FEVER; Start 02/01/17 at 20:15 Ondansetron HCl (Zofran) 4 mg PRN Q6HRS PRN IV NAUSEA/VOMITING; Start 02/01/17 at 20:15 Morphine Sulfate 2 mg PRN Q2HR PRN IV PAIN; Start 02/01/17 at 20:15 Tramadol HCl (Ultram) 50 mg PRN Q6HRS PRN PO PAIN; Start 02/01/17 at 20:15 Hydralazine HCl (Apresoline) 10 mg PRN Q4HRS PRN IVP ELEVATED BP, SEE COMMENTS ; Start 02/01/17 at 20:15 Docusate Sodium (Colace) 100 mg PRN DAILY PRN PO CONSTIPATION; Start 02/01/17 at 20:15 Piperacillin Sod/ Tazobactam Sod (Zosyn Per Pharmacy) 1 each PRN DAILY PRN MC SEE COMMENTS; Start 02/01/17 at 20:15 Insulin Aspart (NovoLOG) 0-9 UNITS TIDWMEALS SQ Last administered on 02/02/17 08:36; Start 02/02/17 at 08:00 Dextrose (Dextrose 50%-Water Syringe) 12.5 gm PRN Q15MIN PRN IV SEE COMMENTS; Start 02/01/17 at 20:15 Albuterol Sulfate (Ventolin Neb Soln) 2.5 mg PRN Q4HRS PRN NEB SHORTNESS OF BREATH; Start 02/01/17 at 20:15 Guaifenesin (Robitussin) 200 mg PRN Q4HRS PRN PO COUGH; Start 02/01/17 at 20:15 Magnesium Sulfate/ Dextrose 50 ml @ 25 mls/hr 1X ONCE IV Last administered on 02/01/17 20:53; Start 02/01/17 at 20:15; Stop 02/01/17 at 22:14; Status DC Sodium Chloride 1,000 ml @ 1,000 mls/hr 1X ONCE IV Last administered on 21:30; Start 02/01/17 at 21:30; Stop 02/01/17 at 22:29; Status DC Piperacillin Sod/ Tazobactam Sod 2.25 gm/Sodium Chloride 50 ml @ 100 mls/hr Q6HRS IV Last administered on 02/02/17 05:45; Start 02/02/17 at 00:00 Vancomycin HCl 1 gm/Sodium Chloride 250 ml @ 250 mls/hr Q24H IV ; Start at 20:00 Vancomycin HCl 1 each 1X ONCE MC ; Start 02/03/17 at 19:30; Stop 02/03/17 at 19 :31 Levofloxacin (Levaquin) 500 mg QODAY PO ; Start 02/03/17 at 09:00 Active Scripts Active Tamiflu (Oseltamivir Phosphate) 75 Mg Capsule 1 Cap PO BID Reported Zofran Odt (Ondansetron) 8 Mg Tab.rapdis 1 Tab PO PRN PRN Diphenhydramine Hcl 25 Mg Capsule 25 Mg PO QHS Levemir Flextouch (Insulin Detemir) 100 Unit/1 Ml Insuln.pen 10 Unit SQ QHS Prilosec (Omeprazole) 20 Mg Capsule.dr 20 Mg PO DAILY Gabapentin 300 Mg Capsule 300 Mg PO BID Allergies Allergies: Coded Allergies: Iodinated Contrast- Oral and IV Dye (Verified Allergy, Intermediate, BAD RASH, 01/20/17) Vitals VITALS Vital Signs Date Time Temp Pulse Resp B/P (MAP) Pulse Ox O2 Delivery O2 Flow Rate FiO2 02/02/17 10:55 97.8 77 19 108/51 (70) 97 Room Air 97.8 Labs Labs Laboratory Tests Test 02/01/17 19:05 02/01/17 23:30 02/02/17 06:10 02/02/17 07:47 White Blood Count 0.5 x10^3/uL (4.0-11.0) 0.7 x10^3/uL (4.0-11.0) Red Blood Count 2.35 x10^6/uL (4.30-5.70) 2.67 x10^6/uL (4.30-5.70) Hemoglobin 7.4 g/dL (13.0-17.5) 8.5 g/dL (13.0-17.5) Hematocrit 21.1 % (39.0-53.0) 24.3 % (39.0-53.0) Mean Corpuscular Volume 90 fL (79-100) 91 fL (79-100) Mean Corpuscular Hemoglobin 31 pg (25-35) 32 pg (25-35) Mean Corpuscular Hemoglobin Concent 35 g/dL (31-37) 35 g/dL (31-37) Red Cell Distribution Width 15.9 % (11.5-14.5) 16.6 % (11.5-14.5) Platelet Count 51 x10^3/uL (140-400) 41 x10^3/uL (140-400) Neutrophils (%) (Auto) 53 % (31-73) 50 % (31-73) Lymphocytes (%) (Auto) 30 % (24-48) 41 % (24-48) Monocytes (%) (Auto) 16 % (0-9) 9 % (0-9) Eosinophils (%) (Auto) 1 % (0-3) 1 % (0-3) Basophils (%) (Auto) 1 % (0-3) 0 % (0-3) Neutrophils # (Auto) 0.3 x10^3uL (1.8-7.7) 0.3 x10^3uL (1.8-7.7) Lymphocytes # (Auto) 0.2 x10^3/uL (1.0-4.8) 0.3 x10^3/uL (1.0-4.8) Monocytes # (Auto) 0.1 x10^3/uL (0.0-1.1) 0.1 x10^3/uL (0.0-1.1) Eosinophils # (Auto) 0.0 x10^3/uL (0.0-0.7) 0.0 x10^3/uL (0.0-0.7) Basophils # (Auto) 0.0 x10^3/uL (0.0-0.2) 0.0 x10^3/uL (0.0-0.2) Segmented Neutrophils % 41 % (35-66) 44 % (35-66) Band Neutrophils % 21 % (0-9) 14 % (0-9) Lymphocytes % 33 % (24-48) 34 % (24-48) Monocytes % 2 % (0-10) 8 % (0-10) Myelocytes % 3 % (0-0) Toxic Granulation Mod Dohle Bodies Few Platelet Estimate Decreased (ADEQUATE) Decreased (ADEQUATE) Prothrombin Time 15.5 SEC (11.7-14.0) Prothromb Time International Ratio 1.3 (0.8-1.1) Activated Partial Thromboplast Time 33 SEC (24-38) Sodium Level 134 mmol/L (136-145) 139 mmol/L (136-145) Potassium Level 4.3 mmol/L (3.5-5.1) 3.9 mmol/L (3.5-5.1) Chloride Level 100 mmol/L (98-107) 105 mmol/L (98-107) Carbon Dioxide Level 21 mmol/L (21-32) 21 mmol/L (21-32) Anion Gap 13 (6-14) 13 (6-14) Blood Urea Nitrogen 29 mg/dL (8-26) 25 mg/dL (8-26) Creatinine 1.5 mg/dL (0.7-1.3) 1.4 mg/dL (0.7-1.3) Estimated GFR (Cockcroft-Gault) 44.2 47.8 BUN/Creatinine Ratio 19 (6-20) 18 (6-20) Glucose Level 239 mg/dL (70-99) 174 mg/dL (70-99) Lactic Acid Level 3.1 mmol/L (0.4-2.0) 1.9 mmol/L (0.4-2.0) Calcium Level 8.8 mg/dL (8.5-10.1) 8.1 mg/dL (8.5-10.1) Phosphorus Level 3.2 mg/dL (2.6-4.7) Magnesium Level 1.7 mg/dL (1.8-2.4) 2.2 mg/dL (1.8-2.4) Total Bilirubin 0.5 mg/dL (0.2-1.0) 1.2 mg/dL (0.2-1.0) Aspartate Amino Transf (AST/SGOT) 42 U/L (15-37) 40 U/L (15-37) Alanine Aminotransferase (ALT/SGPT) 64 U/L (16-63) 54 U/L (16-63) Alkaline Phosphatase 69 U/L (46-116) 59 U/L (46-116) Creatine Kinase 80 U/L (39-308) Troponin I Quantitative 0.029 ng/mL (0.000-0.055) Total Protein 6.6 g/dL (6.4-8.2) 5.4 g/dL (6.4-8.2) Albumin 2.9 g/dL (3.4-5.0) 2.5 g/dL (3.4-5.0) Albumin/Globulin Ratio 0.8 (1.0-1.7) 0.9 (1.0-1.7) Urine Collection Type Unknown Urine Color Yellow Urine Clarity Clear Urine pH 5.5 Urine Specific Rhodell 1.020 Urine Protein Negative mg/dL (NEG-TRACE) Urine Glucose (UA) 250 mg/dL (NEG) Urine Ketones (Stick) Negative mg/dL (NEG) Urine Blood Negative (NEG) Urine Nitrite Negative (NEG) Urine Bilirubin Negative (NEG) Urine Urobilinogen Dipstick 0.2 mg/dL (0.2 mg/dL) Urine Leukocyte Esterase Negative (NEG) Urine RBC 0 /HPF (0-2) Urine WBC Occ /HPF (0-4) Urine Squamous Epithelial Cells None /LPF Urine Bacteria 0 /HPF (0-FEW) Urine Hyaline Casts Few /HPF Urine Mucus Marked /LPF Glucose (Fingerstick) 153 mg/dL (70-99) Test 02/02/17 10:32 Glucose (Fingerstick) 173 mg/dL (70-99) Laboratory Tests Test 02/01/17 19:05 02/01/17 23:30 02/02/17 06:10 02/02/17 07:47 White Blood Count 0.5 x10^3/uL (4.0-11.0) 0.7 x10^3/uL (4.0-11.0) Red Blood Count 2.35 x10^6/uL (4.30-5.70) 2.67 x10^6/uL (4.30-5.70) Hemoglobin 7.4 g/dL (13.0-17.5) 8.5 g/dL (13.0-17.5) Hematocrit 21.1 % (39.0-53.0) 24.3 % (39.0-53.0) Mean Corpuscular Volume 90 fL (79-100) 91 fL (79-100) Mean Corpuscular Hemoglobin 31 pg (25-35) 32 pg (25-35) Mean Corpuscular Hemoglobin Concent 35 g/dL (31-37) 35 g/dL (31-37) Red Cell Distribution Width 15.9 % (11.5-14.5) 16.6 % (11.5-14.5) Platelet Count 51 x10^3/uL (140-400) 41 x10^3/uL (140-400) Neutrophils (%) (Auto) 53 % (31-73) 50 % (31-73) Lymphocytes (%) (Auto) 30 % (24-48) 41 % (24-48) Monocytes (%) (Auto) 16 % (0-9) 9 % (0-9) Eosinophils (%) (Auto) 1 % (0-3) 1 % (0-3) Basophils (%) (Auto) 1 % (0-3) 0 % (0-3) Neutrophils # (Auto) 0.3 x10^3uL (1.8-7.7) 0.3 x10^3uL (1.8-7.7) Lymphocytes # (Auto) 0.2 x10^3/uL (1.0-4.8) 0.3 x10^3/uL (1.0-4.8) Monocytes # (Auto) 0.1 x10^3/uL (0.0-1.1) 0.1 x10^3/uL (0.0-1.1) Eosinophils # (Auto) 0.0 x10^3/uL (0.0-0.7) 0.0 x10^3/uL (0.0-0.7) Basophils # (Auto) 0.0 x10^3/uL (0.0-0.2) 0.0 x10^3/uL (0.0-0.2) Segmented Neutrophils % 41 % (35-66) 44 % (35-66) Band Neutrophils % 21 % (0-9) 14 % (0-9) Lymphocytes % 33 % (24-48) 34 % (24-48) Monocytes % 2 % (0-10) 8 % (0-10) Myelocytes % 3 % (0-0) Toxic Granulation Mod Dohle Bodies Few Platelet Estimate Decreased (ADEQUATE) Decreased (ADEQUATE) Prothrombin Time 15.5 SEC (11.7-14.0) Prothromb Time International Ratio 1.3 (0.8-1.1) Activated Partial Thromboplast Time 33 SEC (24-38) Sodium Level 134 mmol/L (136-145) 139 mmol/L (136-145) Potassium Level 4.3 mmol/L (3.5-5.1) 3.9 mmol/L (3.5-5.1) Chloride Level 100 mmol/L (98-107) 105 mmol/L (98-107) Carbon Dioxide Level 21 mmol/L (21-32) 21 mmol/L (21-32) Anion Gap 13 (6-14) 13 (6-14) Blood Urea Nitrogen 29 mg/dL (8-26) 25 mg/dL (8-26) Creatinine 1.5 mg/dL (0.7-1.3) 1.4 mg/dL (0.7-1.3) Estimated GFR (Cockcroft-Gault) 44.2 47.8 BUN/Creatinine Ratio 19 (6-20) 18 (6-20) Glucose Level 239 mg/dL (70-99) 174 mg/dL (70-99) Lactic Acid Level 3.1 mmol/L (0.4-2.0) 1.9 mmol/L (0.4-2.0) Calcium Level 8.8 mg/dL (8.5-10.1) 8.1 mg/dL (8.5-10.1) Phosphorus Level 3.2 mg/dL (2.6-4.7) Magnesium Level 1.7 mg/dL (1.8-2.4) 2.2 mg/dL (1.8-2.4) Total Bilirubin 0.5 mg/dL (0.2-1.0) 1.2 mg/dL (0.2-1.0) Aspartate Amino Transf (AST/SGOT) 42 U/L (15-37) 40 U/L (15-37) Alanine Aminotransferase (ALT/SGPT) 64 U/L (16-63) 54 U/L (16-63) Alkaline Phosphatase 69 U/L (46-116) 59 U/L (46-116) Creatine Kinase 80 U/L (39-308) Troponin I Quantitative 0.029 ng/mL (0.000-0.055) Total Protein 6.6 g/dL (6.4-8.2) 5.4 g/dL (6.4-8.2) Albumin 2.9 g/dL (3.4-5.0) 2.5 g/dL (3.4-5.0) Albumin/Globulin Ratio 0.8 (1.0-1.7) 0.9 (1.0-1.7) Urine Collection Type Unknown Urine Color Yellow Urine Clarity Clear Urine pH 5.5 Urine Specific Rhodell 1.020 Urine Protein Negative mg/dL (NEG-TRACE) Urine Glucose (UA) 250 mg/dL (NEG) Urine Ketones (Stick) Negative mg/dL (NEG) Urine Blood Negative (NEG) Urine Nitrite Negative (NEG) Urine Bilirubin Negative (NEG) Urine Urobilinogen Dipstick 0.2 mg/dL (0.2 mg/dL) Urine Leukocyte Esterase Negative (NEG) Urine RBC 0 /HPF (0-2) Urine WBC Occ /HPF (0-4) Urine Squamous Epithelial Cells None /LPF Urine Bacteria 0 /HPF (0-FEW) Urine Hyaline Casts Few /HPF Urine Mucus Marked /LPF Glucose (Fingerstick) 153 mg/dL (70-99) Test 02/02/17 10:32 Glucose (Fingerstick) 173 mg/dL (70-99) Assessment/Plan Assessment/Plan DATE OF CONSULTATION: 02/02/2017 CONSULTATION REQUESTED BY: Dr Daren M.D. REASON FOR CONSULTATION: Severe neutropenia in a patient who has MDS and now admitted with pneumonia. HISTORY OF PRESENT ILLNESS: The patient is an 86-year-old gentleman who was diagnosed with myelodysplastic syndrome and he was started on chemotherapy with Vidaza on 08/25/2014. He received cycle #19, day #7 on 01/27/2016. He has been tolerating the treatments quite well and he has responded very well to treatments with improvement in his hemoglobin. s/p [id number] on 01/03/17 .s/p PRBC transfusion. He is no longer responding to chemotherapy. His hemoglobin has been progressively getting worse requiring frequent transfusions Chemo was discontinued However, he has had persistent neutropenia requiring Neupogen injections. His daughter contributes to the history he began to feel weak 02/01/17 with fever . 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 No bug bites or tick bites Pt was found T 102 at home, cough with clear sputum x1week. no chest pain, dysuria, skin rash or wound. Has some nausea, mild vomiting today, fell - more of a slide down and bump only his arm, no loss of consciousness. in ER, T 99.9, WBC 0.5, ANC 0.3, Hb 7.4, plt 51 CXR revealed pneumonia I was asked to see the patient because of neutropenia. PAST MEDICAL HISTORY: Diabetes, prostate cancer, MDS, urethral stricture and right hydronephrosis. PAST SURGICAL HISTORY: CABG, cystoscopy, urethral dilatation. SOCIAL HISTORY: No alcohol abuse. Quit smoking in the year 1999. FAMILY HISTORY: Positive for stroke and cancer. REVIEW OF SYSTEMS: A 12-point review of system was performed. Pertinent positives are mentioned in the history of present illness. Rest of the system review is negative. PHYSICAL EXAMINATION: GENERAL APPEARANCE: The patient is an 86-year-old gentleman who is in no acute cardiorespiratory distress. VITAL SIGNS: reviewed. HEENT: Atraumatic, normocephalic. Eyes: No icterus. NECK: Supple. CHEST: Bilaterally symmetrical. HEART: S1, S2 normal. ABDOMEN: Soft, nontender. No hepatosplenomegaly. CENTRAL NERVOUS SYSTEM: No focal deficits. LYMPHATICS: No lymphadenopathy. SKIN: He has had right forearm cellulitis and he has a dressing in place. MUSCULOSKELETAL: No joint effusions. LYMPHATICS: No lymphadenopathy. LABORATORY DATA: WBC 0.5, ANC 0.3, Hb 7.4, plt 51 on 02/01/17 IMPRESSION AND PLAN: 1. Neutropenic fever. Appreciate ID consultation and evaluation. He is on antibiotics for pneumonia. In view of severe neutropenia, I would also start him on Granix 480 mcg subQ at bedtime (started 02/01/17). I will continue to closely monitor his WBC count. 2. Myelodysplastic syndrome. He is off chemotherapy with Vidaza. 3. 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 4. 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 I will continue to monitor this. No signs of bleeding. 5. Pneumonia per CXR 02/01/17. cont abx per ID. LAY BURTON MD Feb 02, 2017 11:12
[2017-02-02] MEDS: VANCOMYCIN PER PHARMACY MC PRN (13:05)
[2017-02-02] MEDS: PIPERACILLIN/TAZOBACTAM 3.375 GM in IV NORMAL SALINE 50ML 50 ML IV SCH (18:08)
[2017-02-02] MEDS: ACETAMINOPHEN 325 MG TABLET. PO PRN (20:27)
[2017-02-02] MEDS: diphenhydrAMINE HCL 25 MG CAPSULE PO SCH (20:27)
[2017-02-02] MEDS: VANCOMYCIN 1 GM in IV NORMAL SALINE 250ML 250 ML IV SCH (20:28)
[2017-02-02] MEDS: TBO-FILGRASTIM 300 MCG/0.5 ML SYRINGE. SQ SCH (20:28)
[2017-02-02] MEDS: INSULIN DETEMIR 300 UNITS/3 ML INSULN.PEN. SQ SCH (21:03)
[2017-02-02 23:11] LABS: SPECIMEN SOURCE Urine (.)
[2017-02-03] MEDS: PIPERACILLIN/TAZOBACTAM 3.375 GM in IV NORMAL SALINE 50ML 50 ML IV SCH ×5 (00:11→23:21)
[2017-02-03 05:13] LABS: BASO % 0 % (0-3); EOS % 2 % (0-3); HEMATOCRIT 28.3 % (39.0-53.0); HEMOGLOBIN 9.7 g/dL (13.0-17.5); LYMPH # 0.4 x10^3/uL (1.0-4.8); LYMPH % 39 % (24-48); MEAN CORPUSCULAR HEMOGLOBIN 32 pg (25-35); MEAN CORPUSCULAR HGB CONC 34 g/dL (31-37); MEAN CORPUSCULAR VOLUME 92 fL (79-100); MONO % 5 % (0-9); NEUT % 54 % (31-73); PLATELET COUNT 42 x10^3/uL (140-400); RED BLOOD COUNT 3.09 x10^6/uL (4.30-5.70); RED CELL DISTRIBUTION WIDTH 16.2 % (11.5-14.5)
[2017-02-03 05:24] LABS: WHITE BLOOD COUNT 0.9 x10^3/uL (4.0-11.0)
[2017-02-03 05:30] LABS: CALCIUM 8.8 mg/dL (8.5-10.1); CREATININE 1.4 mg/dL (0.7-1.3); GFR 47.8; POTASSIUM 3.7 mmol/L (3.5-5.1)
[2017-02-03] MEDS: PANTOPRAZOLE 40 MG TABLET.DR. PO SCH (06:11)
[2017-02-03 07:00] VITALS: BP 103/51
[2017-02-03] MEDS: INSULIN ASPART 300 UNITS/3 ML INSULN.PEN SQ SCH ×3 (08:00→17:45)
[2017-02-03] MEDS: GABAPENTIN 300 MG CAPSULE. PO SCH ×2 (08:30→21:28)
--- NOTE | 2017-02-03 10:19 | PDOC ---
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 PT working with him WBC 0.9 from 0.7 from 0.6 - ON granix started 02/01 by heme onc BC neg prelim x 1 day Hgb stable PLAN: COntg IV antibiotics and pT CBC again yudi Follow BC IF afebrile home this weekend Dw dtr Vitals Vitals Vital Signs Date Time Temp Pulse Resp B/P (MAP) Pulse Ox O2 Delivery O2 Flow Rate FiO2 02/03/17 07:00 97.9 93 18 103/51 (68) 91 Room Air 97.9 Physical Exam General: Alert, Oriented X3, Cooperative Heart: Regular rate, Normal S1, Normal S2 Lungs: Other (normal air entry) Abdomen: Normal bowel sounds, Soft Extremities: No clubbing, No cyanosis Skin: No rashes, No breakdown Labs LABS Laboratory Tests Test 02/02/17 10:32 02/02/17 16:32 02/02/17 20:45 02/03/17 03:33 Glucose (Fingerstick) 173 mg/dL (70-99) 237 mg/dL (70-99) 228 mg/dL (70-99) White Blood Count 0.9 x10^3/uL (4.0-11.0) Red Blood Count 3.09 x10^6/uL (4.30-5.70) Hemoglobin 9.7 g/dL (13.0-17.5) Hematocrit 28.3 % (39.0-53.0) Mean Corpuscular Volume 92 fL (79-100) Mean Corpuscular Hemoglobin 32 pg (25-35) Mean Corpuscular Hemoglobin Concent 34 g/dL (31-37) Red Cell Distribution Width 16.2 % (11.5-14.5) Platelet Count 42 x10^3/uL (140-400) Neutrophils (%) (Auto) 54 % (31-73) Lymphocytes (%) (Auto) 39 % (24-48) Monocytes (%) (Auto) 5 % (0-9) Eosinophils (%) (Auto) 2 % (0-3) Basophils (%) (Auto) 0 % (0-3) Neutrophils # (Auto) 0.5 x10^3uL (1.8-7.7) Lymphocytes # (Auto) 0.4 x10^3/uL (1.0-4.8) Monocytes # (Auto) 0.0 x10^3/uL (0.0-1.1) Eosinophils # (Auto) 0.0 x10^3/uL (0.0-0.7) Basophils # (Auto) 0.0 x10^3/uL (0.0-0.2) Sodium Level 138 mmol/L (136-145) Potassium Level 3.7 mmol/L (3.5-5.1) Chloride Level 105 mmol/L (98-107) Carbon Dioxide Level 23 mmol/L (21-32) Anion Gap 10 (6-14) Blood Urea Nitrogen 21 mg/dL (8-26) Creatinine 1.4 mg/dL (0.7-1.3) Estimated GFR (Cockcroft-Gault) 47.8 Glucose Level 153 mg/dL (70-99) Calcium Level 8.8 mg/dL (8.5-10.1) Test 02/03/17 07:58 Glucose (Fingerstick) 102 mg/dL (70-99) Review of Systems Review of Systems denies all 14 pt reviewed Assessment and Plan Assessmemt and Plan Problems Medical Problems: (1) Lactic acid acidosis Status: Acute (2) Pancytopenia Status: Acute (3) Sepsis Status: Acute Problems: Comment Review of Relevant I have reviewed the following items dora (where applicable) has been applied. Labs Laboratory Tests Test 02/01/17 19:05 02/01/17 23:30 02/02/17 06:10 02/02/17 07:47 White Blood Count 0.5 x10^3/uL (4.0-11.0) 0.7 x10^3/uL (4.0-11.0) Red Blood Count 2.35 x10^6/uL (4.30-5.70) 2.67 x10^6/uL (4.30-5.70) Hemoglobin 7.4 g/dL (13.0-17.5) 8.5 g/dL (13.0-17.5) Hematocrit 21.1 % (39.0-53.0) 24.3 % (39.0-53.0) Mean Corpuscular Volume 90 fL (79-100) 91 fL (79-100) Mean Corpuscular Hemoglobin 31 pg (25-35) 32 pg (25-35) Mean Corpuscular Hemoglobin Concent 35 g/dL (31-37) 35 g/dL (31-37) Red Cell Distribution Width 15.9 % (11.5-14.5) 16.6 % (11.5-14.5) Platelet Count 51 x10^3/uL (140-400) 41 x10^3/uL (140-400) Neutrophils (%) (Auto) 53 % (31-73) 50 % (31-73) Lymphocytes (%) (Auto) 30 % (24-48) 41 % (24-48) Monocytes (%) (Auto) 16 % (0-9) 9 % (0-9) Eosinophils (%) (Auto) 1 % (0-3) 1 % (0-3) Basophils (%) (Auto) 1 % (0-3) 0 % (0-3) Neutrophils # (Auto) 0.3 x10^3uL (1.8-7.7) 0.3 x10^3uL (1.8-7.7) Lymphocytes # (Auto) 0.2 x10^3/uL (1.0-4.8) 0.3 x10^3/uL (1.0-4.8) Monocytes # (Auto) 0.1 x10^3/uL (0.0-1.1) 0.1 x10^3/uL (0.0-1.1) Eosinophils # (Auto) 0.0 x10^3/uL (0.0-0.7) 0.0 x10^3/uL (0.0-0.7) Basophils # (Auto) 0.0 x10^3/uL (0.0-0.2) 0.0 x10^3/uL (0.0-0.2) Segmented Neutrophils % 41 % (35-66) 44 % (35-66) Band Neutrophils % 21 % (0-9) 14 % (0-9) Lymphocytes % 33 % (24-48) 34 % (24-48) Monocytes % 2 % (0-10) 8 % (0-10) Myelocytes % 3 % (0-0) Toxic Granulation Mod Dohle Bodies Few Platelet Estimate Decreased (ADEQUATE) Decreased (ADEQUATE) Prothrombin Time 15.5 SEC (11.7-14.0) Prothromb Time International Ratio 1.3 (0.8-1.1) Activated Partial Thromboplast Time 33 SEC (24-38) Sodium Level 134 mmol/L (136-145) 139 mmol/L (136-145) Potassium Level 4.3 mmol/L (3.5-5.1) 3.9 mmol/L (3.5-5.1) Chloride Level 100 mmol/L (98-107) 105 mmol/L (98-107) Carbon Dioxide Level 21 mmol/L (21-32) 21 mmol/L (21-32) Anion Gap 13 (6-14) 13 (6-14) Blood Urea Nitrogen 29 mg/dL (8-26) 25 mg/dL (8-26) Creatinine 1.5 mg/dL (0.7-1.3) 1.4 mg/dL (0.7-1.3) Estimated GFR (Cockcroft-Gault) 44.2 47.8 BUN/Creatinine Ratio 19 (6-20) 18 (6-20) Glucose Level 239 mg/dL (70-99) 174 mg/dL (70-99) Lactic Acid Level 3.1 mmol/L (0.4-2.0) 1.9 mmol/L (0.4-2.0) Calcium Level 8.8 mg/dL (8.5-10.1) 8.1 mg/dL (8.5-10.1) Phosphorus Level 3.2 mg/dL (2.6-4.7) Magnesium Level 1.7 mg/dL (1.8-2.4) 2.2 mg/dL (1.8-2.4) Total Bilirubin 0.5 mg/dL (0.2-1.0) 1.2 mg/dL (0.2-1.0) Aspartate Amino Transf (AST/SGOT) 42 U/L (15-37) 40 U/L (15-37) Alanine Aminotransferase (ALT/SGPT) 64 U/L (16-63) 54 U/L (16-63) Alkaline Phosphatase 69 U/L (46-116) 59 U/L (46-116) Creatine Kinase 80 U/L (39-308) Troponin I Quantitative 0.029 ng/mL (0.000-0.055) Total Protein 6.6 g/dL (6.4-8.2) 5.4 g/dL (6.4-8.2) Albumin 2.9 g/dL (3.4-5.0) 2.5 g/dL (3.4-5.0) Albumin/Globulin Ratio 0.8 (1.0-1.7) 0.9 (1.0-1.7) Urine Collection Type Unknown Urine Color Yellow Urine Clarity Clear Urine pH 5.5 Urine Specific Qu[place]by 1.020 Urine Protein Negative mg/dL (NEG-TRACE) Urine Glucose (UA) 250 mg/dL (NEG) Urine Ketones (Stick) Negative mg/dL (NEG) Urine Blood Negative (NEG) Urine Nitrite Negative (NEG) Urine Bilirubin Negative (NEG) Urine Urobilinogen Dipstick 0.2 mg/dL (0.2 mg/dL) Urine Leukocyte Esterase Negative (NEG) Urine RBC 0 /HPF (0-2) Urine WBC Occ /HPF (0-4) Urine Squamous Epithelial Cells None /LPF Urine Bacteria 0 /HPF (0-FEW) Urine Hyaline Casts Few /HPF Urine Mucus Marked /LPF Body Fluid Culture (LAB) (.) Streptococcus pneumoniae Antigen Negative (Negative) Organism Identification (LAB) (.) MATT Specimen Source Urine (.) Glucose (Fingerstick) 153 mg/dL (70-99) Test 02/02/17 10:32 02/02/17 16:32 02/02/17 20:45 02/03/17 03:33 Glucose (Fingerstick) 173 mg/dL (70-99) 237 mg/dL (70-99) 228 mg/dL (70-99) White Blood Count 0.9 x10^3/uL (4.0-11.0) Red Blood Count 3.09 x10^6/uL (4.30-5.70) Hemoglobin 9.7 g/dL (13.0-17.5) Hematocrit 28.3 % (39.0-53.0) Mean Corpuscular Volume 92 fL (79-100) Mean Corpuscular Hemoglobin 32 pg (25-35) Mean Corpuscular Hemoglobin Concent 34 g/dL (31-37) Red Cell Distribution Width 16.2 % (11.5-14.5) Platelet Count 42 x10^3/uL (140-400) Neutrophils (%) (Auto) 54 % (31-73) Lymphocytes (%) (Auto) 39 % (24-48) Monocytes (%) (Auto) 5 % (0-9) Eosinophils (%) (Auto) 2 % (0-3) Basophils (%) (Auto) 0 % (0-3) Neutrophils # (Auto) 0.5 x10^3uL (1.8-7.7) Lymphocytes # (Auto) 0.4 x10^3/uL (1.0-4.8) Monocytes # (Auto) 0.0 x10^3/uL (0.0-1.1) Eosinophils # (Auto) 0.0 x10^3/uL (0.0-0.7) Basophils # (Auto) 0.0 x10^3/uL (0.0-0.2) Sodium Level 138 mmol/L (136-145) Potassium Level 3.7 mmol/L (3.5-5.1) Chloride Level 105 mmol/L (98-107) Carbon Dioxide Level 23 mmol/L (21-32) Anion Gap 10 (6-14) Blood Urea Nitrogen 21 mg/dL (8-26) Creatinine 1.4 mg/dL (0.7-1.3) Estimated GFR (Cockcroft-Gault) 47.8 Glucose Level 153 mg/dL (70-99) Calcium Level 8.8 mg/dL (8.5-10.1) Test 02/03/17 07:58 Glucose (Fingerstick) 102 mg/dL (70-99) Laboratory Tests Test 02/02/17 10:32 02/02/17 16:32 02/02/17 20:45 02/03/17 03:33 Glucose (Fingerstick) 173 mg/dL (70-99) 237 mg/dL (70-99) 228 mg/dL (70-99) White Blood Count 0.9 x10^3/uL (4.0-11.0) Red Blood Count 3.09 x10^6/uL (4.30-5.70) Hemoglobin 9.7 g/dL (13.0-17.5) Hematocrit 28.3 % (39.0-53.0) Mean Corpuscular Volume 92 fL (79-100) Mean Corpuscular Hemoglobin 32 pg (25-35) Mean Corpuscular Hemoglobin Concent 34 g/dL (31-37) Red Cell Distribution Width 16.2 % (11.5-14.5) Platelet Count 42 x10^3/uL (140-400) Neutrophils (%) (Auto) 54 % (31-73) Lymphocytes (%) (Auto) 39 % (24-48) Monocytes (%) (Auto) 5 % (0-9) Eosinophils (%) (Auto) 2 % (0-3) Basophils (%) (Auto) 0 % (0-3) Neutrophils # (Auto) 0.5 x10^3uL (1.8-7.7) Lymphocytes # (Auto) 0.4 x10^3/uL (1.0-4.8) Monocytes # (Auto) 0.0 x10^3/uL (0.0-1.1) Eosinophils # (Auto) 0.0 x10^3/uL (0.0-0.7) Basophils # (Auto) 0.0 x10^3/uL (0.0-0.2) Sodium Level 138 mmol/L (136-145) Potassium Level 3.7 mmol/L (3.5-5.1) Chloride Level 105 mmol/L (98-107) Carbon Dioxide Level 23 mmol/L (21-32) Anion Gap 10 (6-14) Blood Urea Nitrogen 21 mg/dL (8-26) Creatinine 1.4 mg/dL (0.7-1.3) Estimated GFR (Cockcroft-Gault) 47.8 Glucose Level 153 mg/dL (70-99) Calcium Level 8.8 mg/dL (8.5-10.1) Test 02/03/17 07:58 Glucose (Fingerstick) 102 mg/dL (70-99) Microbiology 7/12/17 Blood Culture - Preliminary, Resulted NO GROWTH AFTER 1 DAY Medications Current Medications Tbo-Filgrastim (Granix) 300 mcg QHS SQ Last administered on 02/02/17 20:28; Start 02/01/17 at 21:00 Levofloxacin/ Dextrose 100 ml @ 100 mls/hr 1X ONCE IV Last administered on 20:53; Start 02/01/17 at 20:00; Stop 02/01/17 at 20:59; Status DC Vancomycin HCl (Vanco Per Pharmacy) 1 each PRN DAILY PRN MC SEE COMMENTS Last administered on 02/02/17 13:05; Start 02/01/17 at 20:00 Piperacillin Sod/ Tazobactam Sod 3.375 gm/Sodium Chloride 50 ml @ 100 mls/hr 1X ONCE IV Last administered on 02/01/17 20:52; Start 02/01/17 at 20:00; Stop 02/01/17 at 20:29; Status DC Ondansetron HCl (Zofran) 4 mg PRN Q8HRS PRN IV NAUSEA/VOMITING; Start 02/01/17 at 20:00; Stop 02/02/17 at 13:09; Status DC Acetaminophen (Tylenol) 650 mg PRN Q4HRS PRN PO FEVER Last administered on 02/01 23:41; Start 02/01/17 at 20:00; Stop 02/02/17 at 13:04; Status DC Vancomycin HCl 1.5 gm/Sodium Chloride 500 ml @ 250 mls/hr 1X ONCE IV Last administered on 02/01/17 20:15; Start 02/01/17 at 20:15; Stop 02/01/17 at 22:14 ; Status DC Diphenhydramine HCl (Benadryl) 25 mg QHS PO Last administered on 02/02/17 20: 27; Start 02/01/17 at 21:00 Insulin Detemir (Levemir) 10 units QHS SQ Last administered on 02/02/17 21:03 ; Start 02/01/17 at 21:00 Gabapentin (Neurontin) 300 mg BID PO Last administered on 02/03/17 08:30; Start 02/01/17 at 21:00 Pantoprazole Sodium (Protonix) 40 mg DAILYAC PO Last administered on 02/03/17 06:11; Start 02/02/17 at 07:30 Acetaminophen (Tylenol) 650 mg PRN Q6HRS PRN PO FEVER Last administered on 02/02 20:27; Start 02/01/17 at 20:15 Ondansetron HCl (Zofran) 4 mg PRN Q6HRS PRN IV NAUSEA/VOMITING; Start 02/01/17 at 20:15 Morphine Sulfate 2 mg PRN Q2HR PRN IV PAIN; Start 02/01/17 at 20:15 Tramadol HCl (Ultram) 50 mg PRN Q6HRS PRN PO PAIN; Start 02/01/17 at 20:15 Hydralazine HCl (Apresoline) 10 mg PRN Q4HRS PRN IVP ELEVATED BP, SEE COMMENTS ; Start 02/01/17 at 20:15 Docusate Sodium (Colace) 100 mg PRN DAILY PRN PO CONSTIPATION; Start 02/01/17 at 20:15 Piperacillin Sod/ Tazobactam Sod (Zosyn Per Pharmacy) 1 each PRN DAILY PRN MC SEE COMMENTS; Start 02/01/17 at 20:15 Insulin Aspart (NovoLOG) 0-9 UNITS TIDWMEALS SQ Last administered on 02/02/17 17:58; Start 02/02/17 at 08:00 Dextrose (Dextrose 50%-Water Syringe) 12.5 gm PRN Q15MIN PRN IV SEE COMMENTS; Start 02/01/17 at 20:15 Albuterol Sulfate (Ventolin Neb Soln) 2.5 mg PRN Q4HRS PRN NEB SHORTNESS OF BREATH; Start 02/01/17 at 20:15 Guaifenesin (Robitussin) 200 mg PRN Q4HRS PRN PO COUGH; Start 02/01/17 at 20:15 Magnesium Sulfate/ Dextrose 50 ml @ 25 mls/hr 1X ONCE IV Last administered on 02/01/17 20:53; Start 02/01/17 at 20:15; Stop 02/01/17 at 22:14; Status DC Sodium Chloride 1,000 ml @ 1,000 mls/hr 1X ONCE IV Last administered on 21:30; Start 02/01/17 at 21:30; Stop 02/01/17 at 22:29; Status DC Piperacillin Sod/ Tazobactam Sod 2.25 gm/Sodium Chloride 50 ml @ 100 mls/hr Q6HRS IV Last administered on 02/02/17 12:46; Start 02/02/17 at 00:00; Stop at 13:07; Status DC Vancomycin HCl 1 gm/Sodium Chloride 250 ml @ 250 mls/hr Q24H IV Last administered on 02/02/17 20:28; Start 02/02/17 at 20:00 Vancomycin HCl 1 each 1X ONCE MC ; Start 02/03/17 at 19:30; Stop 02/03/17 at 19 :31 Levofloxacin (Levaquin) 500 mg QODAY PO Last administered on 02/03/17 08:30; Start 02/03/17 at 09:00 Piperacillin Sod/ Tazobactam Sod 3.375 gm/Sodium Chloride 50 ml @ 100 mls/hr Q6HRS IV Last administered on 02/03/17 05:50; Start 02/02/17 at 18:00 Active Scripts Active Tamiflu (Oseltamivir Phosphate) 75 Mg Capsule 1 Cap PO BID Reported Zofran Odt (Ondansetron) 8 Mg Tab.rapdis 1 Tab PO PRN PRN Diphenhydramine Hcl 25 Mg Capsule 25 Mg PO QHS Levemir Flextouch (Insulin Detemir) 100 Unit/1 Ml Insuln.pen 10 Unit SQ QHS Prilosec (Omeprazole) 20 Mg Capsule.dr 20 Mg PO DAILY Gabapentin 300 Mg Capsule 300 Mg PO BID Vitals/I & O Vital Sign - Last 24 Hours 02/02/17 02/02/17 02/02/17 02/02/17 10:55 14:30 15:00 19:00 Temp 97.8 99.1 100.2 102.6 97.8 99.1 100.2 102.6 Pulse 77 72 78 Resp 19 19 18 B/P (MAP) 108/51 (70) 112/58 (76) 128/52 (77) Pulse Ox 97 95 91 O2 Delivery Room Air Room Air Room Air 02/02/17 02/02/17 02/03/17 19:45 23:00 07:00 Temp 97.5 97.9 97.5 97.9 Pulse 72 93 Resp 18 18 B/P (MAP) 117/48 (71) 103/51 (68) Pulse Ox 91 91 O2 Delivery Room Air Room Air Room Air Intake and Output 02/02/17 02/02/17 02/03/17 15:00 23:00 07:00 Intake Total 450 ml 500 ml 300 ml Balance 450 ml 500 ml 300 ml Nutrition Consultation Dietary Evaluation: Recommendations by RD: Increase Calorie Intake, Protein supplementation Comments: boost plus tid yogurt bid Expected Outcomes/Goals: to meet > 75% est nutr needs Malnutrition Findings: Body Fat Depletion (Non Severe: Mild Depletion Weight Status: Appropriate PANKAJ FUENTES MD Feb 03, 2017 10:19
[2017-02-03 11:00] VITALS: BP 94/46
--- NOTE | 2017-02-03 11:16 | PDOC ---
PROGRESS NOTES Subjective Subjective c/c - f/u of MDS ROS- no fever Objective Objective Vital Signs Date Time Temp Pulse Resp B/P (MAP) Pulse Ox O2 Delivery O2 Flow Rate FiO2 02/03/17 11:00 97.9 93 94/46 (62) 97 Room Air 97.9 02/03/17 07:00 18 Intake and Output 02/03/17 07:00 Intake Total 1250 ml Balance 1250 ml Intake Oral 900 ml IV Total 350 ml # Voids 6 Physical Exam Heart: Normal S1, Normal S2 General: Alert, Oriented X3 Lungs: Clear to auscultation Assessment Assessment Problems Medical Problems: (1) Lactic acid acidosis Status: Acute (2) Pancytopenia Status: Acute (3) Sepsis Status: Acute IMPRESSION AND PLAN: 1. Neutropenic fever. Appreciate ID consultation and evaluation. He is on antibiotics for pneumonia. In view of severe neutropenia, I would also start him on Granix 480 mcg subQ at bedtime (started 02/01/17). I will continue to closely monitor his WBC count. WBC 0.9. 2. Myelodysplastic syndrome. He is off chemotherapy with Vidaza. 3. 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 Hb 9.7 4. 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 I will continue to monitor this. No signs of bleeding. 5. Pneumonia per CXR 02/01/17. cont abx per ID. Comment Review of Relevant I have reviewed the following items dora (where applicable) has been applied. Labs Laboratory Tests Test 02/01/17 19:05 02/01/17 23:30 02/02/17 06:10 02/02/17 07:47 White Blood Count 0.5 x10^3/uL (4.0-11.0) 0.7 x10^3/uL (4.0-11.0) Red Blood Count 2.35 x10^6/uL (4.30-5.70) 2.67 x10^6/uL (4.30-5.70) Hemoglobin 7.4 g/dL (13.0-17.5) 8.5 g/dL (13.0-17.5) Hematocrit 21.1 % (39.0-53.0) 24.3 % (39.0-53.0) Mean Corpuscular Volume 90 fL (79-100) 91 fL (79-100) Mean Corpuscular Hemoglobin 31 pg (25-35) 32 pg (25-35) Mean Corpuscular Hemoglobin Concent 35 g/dL (31-37) 35 g/dL (31-37) Red Cell Distribution Width 15.9 % (11.5-14.5) 16.6 % (11.5-14.5) Platelet Count 51 x10^3/uL (140-400) 41 x10^3/uL (140-400) Neutrophils (%) (Auto) 53 % (31-73) 50 % (31-73) Lymphocytes (%) (Auto) 30 % (24-48) 41 % (24-48) Monocytes (%) (Auto) 16 % (0-9) 9 % (0-9) Eosinophils (%) (Auto) 1 % (0-3) 1 % (0-3) Basophils (%) (Auto) 1 % (0-3) 0 % (0-3) Neutrophils # (Auto) 0.3 x10^3uL (1.8-7.7) 0.3 x10^3uL (1.8-7.7) Lymphocytes # (Auto) 0.2 x10^3/uL (1.0-4.8) 0.3 x10^3/uL (1.0-4.8) Monocytes # (Auto) 0.1 x10^3/uL (0.0-1.1) 0.1 x10^3/uL (0.0-1.1) Eosinophils # (Auto) 0.0 x10^3/uL (0.0-0.7) 0.0 x10^3/uL (0.0-0.7) Basophils # (Auto) 0.0 x10^3/uL (0.0-0.2) 0.0 x10^3/uL (0.0-0.2) Segmented Neutrophils % 41 % (35-66) 44 % (35-66) Band Neutrophils % 21 % (0-9) 14 % (0-9) Lymphocytes % 33 % (24-48) 34 % (24-48) Monocytes % 2 % (0-10) 8 % (0-10) Myelocytes % 3 % (0-0) Toxic Granulation Mod Dohle Bodies Few Platelet Estimate Decreased (ADEQUATE) Decreased (ADEQUATE) Prothrombin Time 15.5 SEC (11.7-14.0) Prothromb Time International Ratio 1.3 (0.8-1.1) Activated Partial Thromboplast Time 33 SEC (24-38) Sodium Level 134 mmol/L (136-145) 139 mmol/L (136-145) Potassium Level 4.3 mmol/L (3.5-5.1) 3.9 mmol/L (3.5-5.1) Chloride Level 100 mmol/L (98-107) 105 mmol/L (98-107) Carbon Dioxide Level 21 mmol/L (21-32) 21 mmol/L (21-32) Anion Gap 13 (6-14) 13 (6-14) Blood Urea Nitrogen 29 mg/dL (8-26) 25 mg/dL (8-26) Creatinine 1.5 mg/dL (0.7-1.3) 1.4 mg/dL (0.7-1.3) Estimated GFR (Cockcroft-Gault) 44.2 47.8 BUN/Creatinine Ratio 19 (6-20) 18 (6-20) Glucose Level 239 mg/dL (70-99) 174 mg/dL (70-99) Lactic Acid Level 3.1 mmol/L (0.4-2.0) 1.9 mmol/L (0.4-2.0) Calcium Level 8.8 mg/dL (8.5-10.1) 8.1 mg/dL (8.5-10.1) Phosphorus Level 3.2 mg/dL (2.6-4.7) Magnesium Level 1.7 mg/dL (1.8-2.4) 2.2 mg/dL (1.8-2.4) Total Bilirubin 0.5 mg/dL (0.2-1.0) 1.2 mg/dL (0.2-1.0) Aspartate Amino Transf (AST/SGOT) 42 U/L (15-37) 40 U/L (15-37) Alanine Aminotransferase (ALT/SGPT) 64 U/L (16-63) 54 U/L (16-63) Alkaline Phosphatase 69 U/L (46-116) 59 U/L (46-116) Creatine Kinase 80 U/L (39-308) Troponin I Quantitative 0.029 ng/mL (0.000-0.055) Total Protein 6.6 g/dL (6.4-8.2) 5.4 g/dL (6.4-8.2) Albumin 2.9 g/dL (3.4-5.0) 2.5 g/dL (3.4-5.0) Albumin/Globulin Ratio 0.8 (1.0-1.7) 0.9 (1.0-1.7) Urine Collection Type Unknown Urine Color Yellow Urine Clarity Clear Urine pH 5.5 Urine Specific Gilmer 1.020 Urine Protein Negative mg/dL (NEG-TRACE) Urine Glucose (UA) 250 mg/dL (NEG) Urine Ketones (Stick) Negative mg/dL (NEG) Urine Blood Negative (NEG) Urine Nitrite Negative (NEG) Urine Bilirubin Negative (NEG) Urine Urobilinogen Dipstick 0.2 mg/dL (0.2 mg/dL) Urine Leukocyte Esterase Negative (NEG) Urine RBC 0 /HPF (0-2) Urine WBC Occ /HPF (0-4) Urine Squamous Epithelial Cells None /LPF Urine Bacteria 0 /HPF (0-FEW) Urine Hyaline Casts Few /HPF Urine Mucus Marked /LPF Body Fluid Culture (LAB) (.) Streptococcus pneumoniae Antigen Negative (Negative) Organism Identification (LAB) (.) MATT Specimen Source Urine (.) Glucose (Fingerstick) 153 mg/dL (70-99) Test 02/02/17 10:32 02/02/17 16:32 02/02/17 20:45 02/03/17 03:33 Glucose (Fingerstick) 173 mg/dL (70-99) 237 mg/dL (70-99) 228 mg/dL (70-99) White Blood Count 0.9 x10^3/uL (4.0-11.0) Red Blood Count 3.09 x10^6/uL (4.30-5.70) Hemoglobin 9.7 g/dL (13.0-17.5) Hematocrit 28.3 % (39.0-53.0) Mean Corpuscular Volume 92 fL (79-100) Mean Corpuscular Hemoglobin 32 pg (25-35) Mean Corpuscular Hemoglobin Concent 34 g/dL (31-37) Red Cell Distribution Width 16.2 % (11.5-14.5) Platelet Count 42 x10^3/uL (140-400) Neutrophils (%) (Auto) 54 % (31-73) Lymphocytes (%) (Auto) 39 % (24-48) Monocytes (%) (Auto) 5 % (0-9) Eosinophils (%) (Auto) 2 % (0-3) Basophils (%) (Auto) 0 % (0-3) Neutrophils # (Auto) 0.5 x10^3uL (1.8-7.7) Lymphocytes # (Auto) 0.4 x10^3/uL (1.0-4.8) Monocytes # (Auto) 0.0 x10^3/uL (0.0-1.1) Eosinophils # (Auto) 0.0 x10^3/uL (0.0-0.7) Basophils # (Auto) 0.0 x10^3/uL (0.0-0.2) Sodium Level 138 mmol/L (136-145) Potassium Level 3.7 mmol/L (3.5-5.1) Chloride Level 105 mmol/L (98-107) Carbon Dioxide Level 23 mmol/L (21-32) Anion Gap 10 (6-14) Blood Urea Nitrogen 21 mg/dL (8-26) Creatinine 1.4 mg/dL (0.7-1.3) Estimated GFR (Cockcroft-Gault) 47.8 Glucose Level 153 mg/dL (70-99) Calcium Level 8.8 mg/dL (8.5-10.1) Test 02/03/17 07:58 Glucose (Fingerstick) 102 mg/dL (70-99) Laboratory Tests Test 02/02/17 16:32 02/02/17 20:45 02/03/17 03:33 02/03/17 07:58 Glucose (Fingerstick) 237 mg/dL (70-99) 228 mg/dL (70-99) 102 mg/dL (70-99) White Blood Count 0.9 x10^3/uL (4.0-11.0) Red Blood Count 3.09 x10^6/uL (4.30-5.70) Hemoglobin 9.7 g/dL (13.0-17.5) Hematocrit 28.3 % (39.0-53.0) Mean Corpuscular Volume 92 fL (79-100) Mean Corpuscular Hemoglobin 32 pg (25-35) Mean Corpuscular Hemoglobin Concent 34 g/dL (31-37) Red Cell Distribution Width 16.2 % (11.5-14.5) Platelet Count 42 x10^3/uL (140-400) Neutrophils (%) (Auto) 54 % (31-73) Lymphocytes (%) (Auto) 39 % (24-48) Monocytes (%) (Auto) 5 % (0-9) Eosinophils (%) (Auto) 2 % (0-3) Basophils (%) (Auto) 0 % (0-3) Neutrophils # (Auto) 0.5 x10^3uL (1.8-7.7) Lymphocytes # (Auto) 0.4 x10^3/uL (1.0-4.8) Monocytes # (Auto) 0.0 x10^3/uL (0.0-1.1) Eosinophils # (Auto) 0.0 x10^3/uL (0.0-0.7) Basophils # (Auto) 0.0 x10^3/uL (0.0-0.2) Sodium Level 138 mmol/L (136-145) Potassium Level 3.7 mmol/L (3.5-5.1) Chloride Level 105 mmol/L (98-107) Carbon Dioxide Level 23 mmol/L (21-32) Anion Gap 10 (6-14) Blood Urea Nitrogen 21 mg/dL (8-26) Creatinine 1.4 mg/dL (0.7-1.3) Estimated GFR (Cockcroft-Gault) 47.8 Glucose Level 153 mg/dL (70-99) Calcium Level 8.8 mg/dL (8.5-10.1) Microbiology 02/01/17 Blood Culture - Preliminary, Resulted NO GROWTH AFTER 1 DAY Medications Current Medications Tbo-Filgrastim (Granix) 300 mcg QHS SQ Last administered on 02/02/17 20:28; Start 02/01/17 at 21:00 Levofloxacin/ Dextrose 100 ml @ 100 mls/hr 1X ONCE IV Last administered on 20:53; Start 02/01/17 at 20:00; Stop 02/01/17 at 20:59; Status DC Vancomycin HCl (Vanco Per Pharmacy) 1 each PRN DAILY PRN MC SEE COMMENTS Last administered on 02/02/17 13:05; Start 02/01/17 at 20:00 Piperacillin Sod/ Tazobactam Sod 3.375 gm/Sodium Chloride 50 ml @ 100 mls/hr 1X ONCE IV Last administered on 02/01/17 20:52; Start 02/01/17 at 20:00; Stop 02/01/17 at 20:29; Status DC Ondansetron HCl (Zofran) 4 mg PRN Q8HRS PRN IV NAUSEA/VOMITING; Start 02/01/17 at 20:00; Stop 02/02/17 at 13:09; Status DC Acetaminophen (Tylenol) 650 mg PRN Q4HRS PRN PO FEVER Last administered on 02/01 23:41; Start 02/01/17 at 20:00; Stop 02/02/17 at 13:04; Status DC Vancomycin HCl 1.5 gm/Sodium Chloride 500 ml @ 250 mls/hr 1X ONCE IV Last administered on 02/01/17 20:15; Start 02/01/17 at 20:15; Stop 02/01/17 at 22:14 ; Status DC Diphenhydramine HCl (Benadryl) 25 mg QHS PO Last administered on 02/02/17 20: 27; Start 02/01/17 at 21:00 Insulin Detemir (Levemir) 10 units QHS SQ Last administered on 02/02/17 21:03 ; Start 02/01/17 at 21:00 Gabapentin (Neurontin) 300 mg BID PO Last administered on 02/03/17 08:30; Start 02/01/17 at 21:00 Pantoprazole Sodium (Protonix) 40 mg DAILYAC PO Last administered on 02/03/17 06:11; Start 02/02/17 at 07:30 Acetaminophen (Tylenol) 650 mg PRN Q6HRS PRN PO FEVER Last administered on 02/02 20:27; Start 02/01/17 at 20:15 Ondansetron HCl (Zofran) 4 mg PRN Q6HRS PRN IV NAUSEA/VOMITING; Start 02/01/17 at 20:15 Morphine Sulfate 2 mg PRN Q2HR PRN IV PAIN; Start 02/01/17 at 20:15 Tramadol HCl (Ultram) 50 mg PRN Q6HRS PRN PO PAIN; Start 02/01/17 at 20:15 Hydralazine HCl (Apresoline) 10 mg PRN Q4HRS PRN IVP ELEVATED BP, SEE COMMENTS ; Start 02/01/17 at 20:15 Docusate Sodium (Colace) 100 mg PRN DAILY PRN PO CONSTIPATION; Start 02/01/17 at 20:15 Piperacillin Sod/ Tazobactam Sod (Zosyn Per Pharmacy) 1 each PRN DAILY PRN MC SEE COMMENTS; Start 02/01/17 at 20:15 Insulin Aspart (NovoLOG) 0-9 UNITS TIDWMEALS SQ Last administered on 02/02/17 17:58; Start 02/02/17 at 08:00 Dextrose (Dextrose 50%-Water Syringe) 12.5 gm PRN Q15MIN PRN IV SEE COMMENTS; Start 02/01/17 at 20:15 Albuterol Sulfate (Ventolin Neb Soln) 2.5 mg PRN Q4HRS PRN NEB SHORTNESS OF BREATH; Start 02/01/17 at 20:15 Guaifenesin (Robitussin) 200 mg PRN Q4HRS PRN PO COUGH; Start 02/01/17 at 20:15 Magnesium Sulfate/ Dextrose 50 ml @ 25 mls/hr 1X ONCE IV Last administered on 02/01/17 20:53; Start 02/01/17 at 20:15; Stop 02/01/17 at 22:14; Status DC Sodium Chloride 1,000 ml @ 1,000 mls/hr 1X ONCE IV Last administered on 21:30; Start 02/01/17 at 21:30; Stop 02/01/17 at 22:29; Status DC Piperacillin Sod/ Tazobactam Sod 2.25 gm/Sodium Chloride 50 ml @ 100 mls/hr Q6HRS IV Last administered on 02/02/17 12:46; Start 02/02/17 at 00:00; Stop at 13:07; Status DC Vancomycin HCl 1 gm/Sodium Chloride 250 ml @ 250 mls/hr Q24H IV Last administered on 02/02/17 20:28; Start 02/02/17 at 20:00 Vancomycin HCl 1 each 1X ONCE MC ; Start 02/03/17 at 19:30; Stop 02/03/17 at 19 :31 Levofloxacin (Levaquin) 500 mg QODAY PO Last administered on 02/03/17 08:30; Start 02/03/17 at 09:00 Piperacillin Sod/ Tazobactam Sod 3.375 gm/Sodium Chloride 50 ml @ 100 mls/hr Q6HRS IV Last administered on 02/03/17 05:50; Start 02/02/17 at 18:00 Active Scripts Active Tamiflu (Oseltamivir Phosphate) 75 Mg Capsule 1 Cap PO BID Reported Zofran Odt (Ondansetron) 8 Mg Tab.rapdis 1 Tab PO PRN PRN Diphenhydramine Hcl 25 Mg Capsule 25 Mg PO QHS Levemir Flextouch (Insulin Detemir) 100 Unit/1 Ml Insuln.pen 10 Unit SQ QHS Prilosec (Omeprazole) 20 Mg Capsule.dr 20 Mg PO DAILY Gabapentin 300 Mg Capsule 300 Mg PO BID Vitals/I & O Vital Sign - Last 24 Hours 02/02/17 02/02/17 02/02/17 02/02/17 14:30 15:00 19:00 19:45 Temp 99.1 100.2 102.6 99.1 100.2 102.6 Pulse 72 78 Resp 19 18 B/P (MAP) 112/58 (76) 128/52 (77) Pulse Ox 95 91 O2 Delivery Room Air Room Air Room Air 02/02/17 02/03/17 02/03/17 02/03/17 23:00 07:00 08:00 11:00 Temp 97.5 97.9 97.9 97.5 97.9 97.9 Pulse 72 93 93 Resp 18 18 B/P (MAP) 117/48 (71) 103/51 (68) 94/46 (62) Pulse Ox 91 91 97 O2 Delivery Room Air Room Air Room Air Room Air Intake and Output 02/02/17 02/02/17 02/03/17 15:00 23:00 07:00 Intake Total 450 ml 500 ml 300 ml Balance 450 ml 500 ml 300 ml Nutrition Consultation Dietary Evaluation: Recommendations by RD: Increase Calorie Intake, Protein supplementation Comments: boost plus tid yogurt bid Expected Outcomes/Goals: to meet > 75% est nutr needs Malnutrition Findings: Body Fat Depletion (Non Severe: Mild Depletion Weight Status: Appropriate LAY BURTON MD Feb 03, 2017 11:16
--- NOTE | 2017-02-03 11:17 | PDOC ---
Infectious Disease Note Subjective Subjective Feeling cold, no fever so far today, Tmax 102.6 Strength and energy level improving Eating some, but appetite in general has been low Mild cough with phlegm production, denies chest discomfort or SOA + BM yesterday ROS ROS GEN: Denies sweats GI: Denies n/v/d NEURO: Denies confusion, dizziness Vital Sign Vital Signs Vital Signs Date Time Temp Pulse Resp B/P (MAP) Pulse Ox O2 Delivery O2 Flow Rate FiO2 02/03/17 11:00 97.9 93 94/46 (62) 97 Room Air 97.9 02/03/17 07:00 18 Physical Exam PHYSICAL EXAM GENERAL: Sitting in the chair, joking, NAD HEENT: Oral cavity pink NECK: Supple LUNGS: Clear HEART: S1 and S2 ABD: Soft, NT EXT: No edema, no cyanosis [employer]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, 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, no focal neurologic deficit SKIN: No rash IV: ok Labs Lab Laboratory Tests Test 02/02/17 16:32 02/02/17 20:45 02/03/17 03:33 02/03/17 07:58 Glucose (Fingerstick) 237 mg/dL (70-99) 228 mg/dL (70-99) 102 mg/dL (70-99) White Blood Count 0.9 x10^3/uL (4.0-11.0) Red Blood Count 3.09 x10^6/uL (4.30-5.70) Hemoglobin 9.7 g/dL (13.0-17.5) Hematocrit 28.3 % (39.0-53.0) Mean Corpuscular Volume 92 fL (79-100) Mean Corpuscular Hemoglobin 32 pg (25-35) Mean Corpuscular Hemoglobin Concent 34 g/dL (31-37) Red Cell Distribution Width 16.2 % (11.5-14.5) Platelet Count 42 x10^3/uL (140-400) Neutrophils (%) (Auto) 54 % (31-73) Lymphocytes (%) (Auto) 39 % (24-48) Monocytes (%) (Auto) 5 % (0-9) Eosinophils (%) (Auto) 2 % (0-3) Basophils (%) (Auto) 0 % (0-3) Neutrophils # (Auto) 0.5 x10^3uL (1.8-7.7) Lymphocytes # (Auto) 0.4 x10^3/uL (1.0-4.8) Monocytes # (Auto) 0.0 x10^3/uL (0.0-1.1) Eosinophils # (Auto) 0.0 x10^3/uL (0.0-0.7) Basophils # (Auto) 0.0 x10^3/uL (0.0-0.2) Sodium Level 138 mmol/L (136-145) Potassium Level 3.7 mmol/L (3.5-5.1) Chloride Level 105 mmol/L (98-107) Carbon Dioxide Level 23 mmol/L (21-32) Anion Gap 10 (6-14) Blood Urea Nitrogen 21 mg/dL (8-26) Creatinine 1.4 mg/dL (0.7-1.3) Estimated GFR (Cockcroft-Gault) 47.8 Glucose Level 153 mg/dL (70-99) Calcium Level 8.8 mg/dL (8.5-10.1) Micro BLOOD CULTURE Preliminary NO GROWTH AFTER 1 DAY Objective Assessment Fever Neutropenia - s/p chemo last month but will not take anymore. Received Neupogen or Neulasta last week and Neupogen last pm MDS Aspiration, Bedside swallow: functional but easily distracted. cough CKD H/o MSSA cellulitis Plan Plan of Care Vanc, Zosyn and, Levofloxacin (q 48) -hope to change to po soon Strep urinary antigen negative On Granix Monitor counts/cultures D/w /family Attending Co-Sign Attending Co-Sign The patient was seen and interviewed as well as examined at the bedside. The chart was reviewed. The case was discussed. Agree with the plan of care. SHADY LEROY APRN Feb 03, 2017 11:17 AKIN NEFF MD Feb 03, 2017 16:23
[2017-02-03] MEDS: VANCOMYCIN PER PHARMACY MC PRN ×3 (11:46→20:08)
[2017-02-03 15:00] VITALS: BP 109/48
[2017-02-03] MEDS: ACETAMINOPHEN 325 MG TABLET. PO PRN (17:53)
[2017-02-03 19:00] VITALS: BP 107/42
[2017-02-03] MEDS: TBO-FILGRASTIM 480 MCG/0.8 ML SYRINGE. SQ SCH (21:28)
[2017-02-03] MEDS: diphenhydrAMINE HCL 25 MG CAPSULE PO SCH (21:28)
[2017-02-03] MEDS: VANCOMYCIN 1 GM in IV NORMAL SALINE 250ML 250 ML IV SCH (21:29)
[2017-02-03] MEDS: INSULIN DETEMIR 300 UNITS/3 ML INSULN.PEN. SQ SCH (21:37)
[2017-02-03 23:07] VITALS: BP 114/43
[2017-02-04 03:00] VITALS: BP 118/66
[2017-02-04] MEDS: PIPERACILLIN/TAZOBACTAM 3.375 GM in IV NORMAL SALINE 50ML 50 ML IV SCH ×3 (06:12→18:23)
[2017-02-04 07:00] VITALS: BP 123/51
--- NOTE | 2017-02-04 07:31 | PDOC ---
Infectious Disease Note Subjective Subjective Doing ok. Occ cough Dry throat Strength and energy level improving Eating some, but appetite in general has been low denies chest discomfort or SOA ROS ROS GEN: Denies fevers, chills, sweats HEENT: Denies blurred vision, sore throat CV: Denies chest pain RESP: Denies shortness of air, cough GI: Denies n/v/d NEURO: Denies confusion, dizziness MSK: Denies weakness, joint pain/swelling Vital Sign Vital Signs Vital Signs Date Time Temp Pulse Resp B/P (MAP) Pulse Ox O2 Delivery O2 Flow Rate FiO2 02/04/17 03:00 99.4 82 18 118/66 (83) 94 Room Air 99.4 Physical Exam PHYSICAL EXAM GENERAL: NAD, Alert, coop HEENT: PERRL, OC/OP - clear and no thrush NECK: Supple, no JVD, no LN LUNGS: Clear HEART: S1S2, no gallop, no murmur ABD: Soft, NT, no organomegaly, no rebound EXT: No edema, no cyanosis [employer]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 Receiving Neupogen MDS Aspiration, Bedside swallow: functional but easily distracted. cough CKD H/o MSSA cellulitis Plan Plan of Care D/c Vanc Cont Zosyn and Levofloxacin (q 48) -hope to change to po soon for now Strep urinary antigen negative On Granix Monitor counts/cultures D/w family AKIN NEFF MD Feb 04, 2017 07:31
[2017-02-04] MEDS: PANTOPRAZOLE 40 MG TABLET.DR. PO SCH (07:44)
[2017-02-04] MEDS: GABAPENTIN 300 MG CAPSULE. PO SCH ×2 (07:44→22:03)
[2017-02-04] MEDS: INSULIN ASPART 300 UNITS/3 ML INSULN.PEN SQ SCH ×3 (07:52→16:56)
[2017-02-04] MEDS ORDERED: VANCOMYCIN 750 MG in IV NORMAL SALINE 250ML 250 ML IV SCH (09:00)
[2017-02-04 10:44] VITALS: BP 132/54
[2017-02-04 11:02] LABS: BASO % 0 % (0-3); EOS % 1 % (0-3); HEMATOCRIT 26.3 % (39.0-53.0); HEMOGLOBIN 9.3 g/dL (13.0-17.5); LYMPH # 0.2 x10^3/uL (1.0-4.8); LYMPH % 27 % (24-48); MEAN CORPUSCULAR HEMOGLOBIN 32 pg (25-35); MEAN CORPUSCULAR HGB CONC 35 g/dL (31-37); MEAN CORPUSCULAR VOLUME 90 fL (79-100); MONO % 10 % (0-9); NEUT % 63 % (31-73); PLATELET COUNT 36 x10^3/uL (140-400); RED BLOOD COUNT 2.93 x10^6/uL (4.30-5.70); RED CELL DISTRIBUTION WIDTH 16.4 % (11.5-14.5)
[2017-02-04 11:09] LABS: WHITE BLOOD COUNT 0.8 x10^3/uL (4.0-11.0)
--- NOTE | 2017-02-04 11:12 | PDOC ---
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 HTN DM2 ON lantus 20u qhs lactate acidosis sepsis with Possible PNA hypomagnesemia ckd3 mild malnutrition mild elevated transaminitis History of Present Illness History of Present Illness Fever today 100.3 at 10 AM weaker today Poor PO today DTrs at bedside PLAN: Follow ID recs MOnitor temps and labs and BC Dw 2 dtrs Vitals Vitals Vital Signs Date Time Temp Pulse Resp B/P (MAP) Pulse Ox O2 Delivery O2 Flow Rate FiO2 02/04/17 10:44 100.7 90 18 132/54 (80) 90 Room Air 100.7 Physical Exam General: Alert, Oriented X3 Heart: Normal S1, Normal S2 Lungs: Other (normal air entry) Abdomen: Normal bowel sounds, Soft Extremities: No clubbing, No cyanosis Skin: No rashes, No breakdown Labs LABS Laboratory Tests Test 02/03/17 11:40 02/03/17 16:50 02/03/17 19:15 02/04/17 07:41 Glucose (Fingerstick) 184 mg/dL (70-99) 201 mg/dL (70-99) 186 mg/dL (70-99) Vancomycin Level Trough 9.3 mcg/mL (10.0-20.0) Vancomycin Last Dose Date 02/02/17 Vancomycin Last Dose Time 1999 Test 02/04/17 09:57 02/04/17 10:40 Glucose (Fingerstick) 183 mg/dL (70-99) White Blood Count 0.8 x10^3/uL (4.0-11.0) Red Blood Count 2.93 x10^6/uL (4.30-5.70) Hemoglobin 9.3 g/dL (13.0-17.5) Hematocrit 26.3 % (39.0-53.0) Mean Corpuscular Volume 90 fL (79-100) Mean Corpuscular Hemoglobin 32 pg (25-35) Mean Corpuscular Hemoglobin Concent 35 g/dL (31-37) Red Cell Distribution Width 16.4 % (11.5-14.5) Platelet Count 36 x10^3/uL (140-400) Neutrophils (%) (Auto) 63 % (31-73) Lymphocytes (%) (Auto) 27 % (24-48) Monocytes (%) (Auto) 10 % (0-9) Eosinophils (%) (Auto) 1 % (0-3) Basophils (%) (Auto) 0 % (0-3) Neutrophils # (Auto) 0.5 x10^3uL (1.8-7.7) Lymphocytes # (Auto) 0.2 x10^3/uL (1.0-4.8) Monocytes # (Auto) 0.1 x10^3/uL (0.0-1.1) Eosinophils # (Auto) 0.0 x10^3/uL (0.0-0.7) Basophils # (Auto) 0.0 x10^3/uL (0.0-0.2) Review of Systems Review of Systems mildly confused today, unreliable Assessment and Plan Assessmemt and Plan Problems Medical Problems: (1) Lactic acid acidosis Status: Acute (2) Pancytopenia Status: Acute (3) Sepsis Status: Acute Problems: Comment Review of Relevant I have reviewed the following items dora (where applicable) has been applied. Labs Laboratory Tests Test 02/02/17 16:32 02/02/17 20:45 02/03/17 03:33 02/03/17 07:58 Glucose (Fingerstick) 237 mg/dL (70-99) 228 mg/dL (70-99) 102 mg/dL (70-99) White Blood Count 0.9 x10^3/uL (4.0-11.0) Red Blood Count 3.09 x10^6/uL (4.30-5.70) Hemoglobin 9.7 g/dL (13.0-17.5) Hematocrit 28.3 % (39.0-53.0) Mean Corpuscular Volume 92 fL (79-100) Mean Corpuscular Hemoglobin 32 pg (25-35) Mean Corpuscular Hemoglobin Concent 34 g/dL (31-37) Red Cell Distribution Width 16.2 % (11.5-14.5) Platelet Count 42 x10^3/uL (140-400) Neutrophils (%) (Auto) 54 % (31-73) Lymphocytes (%) (Auto) 39 % (24-48) Monocytes (%) (Auto) 5 % (0-9) Eosinophils (%) (Auto) 2 % (0-3) Basophils (%) (Auto) 0 % (0-3) Neutrophils # (Auto) 0.5 x10^3uL (1.8-7.7) Lymphocytes # (Auto) 0.4 x10^3/uL (1.0-4.8) Monocytes # (Auto) 0.0 x10^3/uL (0.0-1.1) Eosinophils # (Auto) 0.0 x10^3/uL (0.0-0.7) Basophils # (Auto) 0.0 x10^3/uL (0.0-0.2) Sodium Level 138 mmol/L (136-145) Potassium Level 3.7 mmol/L (3.5-5.1) Chloride Level 105 mmol/L (98-107) Carbon Dioxide Level 23 mmol/L (21-32) Anion Gap 10 (6-14) Blood Urea Nitrogen 21 mg/dL (8-26) Creatinine 1.4 mg/dL (0.7-1.3) Estimated GFR (Cockcroft-Gault) 47.8 Glucose Level 153 mg/dL (70-99) Calcium Level 8.8 mg/dL (8.5-10.1) Test 02/03/17 11:40 02/03/17 16:50 02/03/17 19:15 02/04/17 07:41 Glucose (Fingerstick) 184 mg/dL (70-99) 201 mg/dL (70-99) 186 mg/dL (70-99) Vancomycin Level Trough 9.3 mcg/mL (10.0-20.0) Vancomycin Last Dose Date 02/02/17 Vancomycin Last Dose Time 1999 Test 02/04/17 09:57 02/04/17 10:40 Glucose (Fingerstick) 183 mg/dL (70-99) White Blood Count 0.8 x10^3/uL (4.0-11.0) Red Blood Count 2.93 x10^6/uL (4.30-5.70) Hemoglobin 9.3 g/dL (13.0-17.5) Hematocrit 26.3 % (39.0-53.0) Mean Corpuscular Volume 90 fL (79-100) Mean Corpuscular Hemoglobin 32 pg (25-35) Mean Corpuscular Hemoglobin Concent 35 g/dL (31-37) Red Cell Distribution Width 16.4 % (11.5-14.5) Platelet Count 36 x10^3/uL (140-400) Neutrophils (%) (Auto) 63 % (31-73) Lymphocytes (%) (Auto) 27 % (24-48) Monocytes (%) (Auto) 10 % (0-9) Eosinophils (%) (Auto) 1 % (0-3) Basophils (%) (Auto) 0 % (0-3) Neutrophils # (Auto) 0.5 x10^3uL (1.8-7.7) Lymphocytes # (Auto) 0.2 x10^3/uL (1.0-4.8) Monocytes # (Auto) 0.1 x10^3/uL (0.0-1.1) Eosinophils # (Auto) 0.0 x10^3/uL (0.0-0.7) Basophils # (Auto) 0.0 x10^3/uL (0.0-0.2) Laboratory Tests Test 02/03/17 11:40 02/03/17 16:50 02/03/17 19:15 02/04/17 07:41 Glucose (Fingerstick) 184 mg/dL (70-99) 201 mg/dL (70-99) 186 mg/dL (70-99) Vancomycin Level Trough 9.3 mcg/mL (10.0-20.0) Vancomycin Last Dose Date 02/02/17 Vancomycin Last Dose Time 2000 Test 02/04/17 09:57 02/04/17 10:40 Glucose (Fingerstick) 183 mg/dL (70-99) White Blood Count 0.8 x10^3/uL (4.0-11.0) Red Blood Count 2.93 x10^6/uL (4.30-5.70) Hemoglobin 9.3 g/dL (13.0-17.5) Hematocrit 26.3 % (39.0-53.0) Mean Corpuscular Volume 90 fL (79-100) Mean Corpuscular Hemoglobin 32 pg (25-35) Mean Corpuscular Hemoglobin Concent 35 g/dL (31-37) Red Cell Distribution Width 16.4 % (11.5-14.5) Platelet Count 36 x10^3/uL (140-400) Neutrophils (%) (Auto) 63 % (31-73) Lymphocytes (%) (Auto) 27 % (24-48) Monocytes (%) (Auto) 10 % (0-9) Eosinophils (%) (Auto) 1 % (0-3) Basophils (%) (Auto) 0 % (0-3) Neutrophils # (Auto) 0.5 x10^3uL (1.8-7.7) Lymphocytes # (Auto) 0.2 x10^3/uL (1.0-4.8) Monocytes # (Auto) 0.1 x10^3/uL (0.0-1.1) Eosinophils # (Auto) 0.0 x10^3/uL (0.0-0.7) Basophils # (Auto) 0.0 x10^3/uL (0.0-0.2) Microbiology 02/01/17 Blood Culture - Preliminary, Resulted NO GROWTH AFTER 2 DAYS Medications Current Medications Tbo-Filgrastim (Granix) 300 mcg QHS SQ Last administered on 02/02/17 20:28; Start 02/01/17 at 21:00; Stop 02/03/17 at 11:54; Status DC Levofloxacin/ Dextrose 100 ml @ 100 mls/hr 1X ONCE IV Last administered on 20:53; Start 02/01/17 at 20:00; Stop 02/01/17 at 20:59; Status DC Vancomycin HCl (Vanco Per Pharmacy) 1 each PRN DAILY PRN MC SEE COMMENTS Last administered on 02/03/17 20:08; Start 02/01/17 at 20:00; Stop 02/04/17 at 07:43 ; Status DC Piperacillin Sod/ Tazobactam Sod 3.375 gm/Sodium Chloride 50 ml @ 100 mls/hr 1X ONCE IV Last administered on 02/01/17 20:52; Start 02/01/17 at 20:00; Stop 02/01/17 at 20:29; Status DC Ondansetron HCl (Zofran) 4 mg PRN Q8HRS PRN IV NAUSEA/VOMITING; Start 02/01/17 at 20:00; Stop 02/02/17 at 13:09; Status DC Acetaminophen (Tylenol) 650 mg PRN Q4HRS PRN PO FEVER Last administered on 02/01 23:41; Start 02/01/17 at 20:00; Stop 02/02/17 at 13:04; Status DC Vancomycin HCl 1.5 gm/Sodium Chloride 500 ml @ 250 mls/hr 1X ONCE IV Last administered on 02/01/17 20:15; Start 02/01/17 at 20:15; Stop 02/01/17 at 22:14 ; Status DC Diphenhydramine HCl (Benadryl) 25 mg QHS PO Last administered on 02/03/17 21: 28; Start 02/01/17 at 21:00 Insulin Detemir (Levemir) 10 units QHS SQ Last administered on 02/03/17 21:37 ; Start 02/01/17 at 21:00 Gabapentin (Neurontin) 300 mg BID PO Last administered on 02/04/17 07:44; Start 02/01/17 at 21:00 Pantoprazole Sodium (Protonix) 40 mg DAILYAC PO Last administered on 02/04/17 07:44; Start 02/02/17 at 07:30 Acetaminophen (Tylenol) 650 mg PRN Q6HRS PRN PO FEVER Last administered on 02/03 17:53; Start 02/01/17 at 20:15 Ondansetron HCl (Zofran) 4 mg PRN Q6HRS PRN IV NAUSEA/VOMITING; Start 02/01/17 at 20:15 Morphine Sulfate 2 mg PRN Q2HR PRN IV PAIN; Start 02/01/17 at 20:15 Tramadol HCl (Ultram) 50 mg PRN Q6HRS PRN PO PAIN; Start 02/01/17 at 20:15 Hydralazine HCl (Apresoline) 10 mg PRN Q4HRS PRN IVP ELEVATED BP, SEE COMMENTS ; Start 02/01/17 at 20:15 Docusate Sodium (Colace) 100 mg PRN DAILY PRN PO CONSTIPATION; Start 02/01/17 at 20:15 Piperacillin Sod/ Tazobactam Sod (Zosyn Per Pharmacy) 1 each PRN DAILY PRN MC SEE COMMENTS; Start 02/01/17 at 20:15 Insulin Aspart (NovoLOG) 0-9 UNITS TIDWMEALS SQ Last administered on 02/04/17 07:52; Start 02/02/17 at 08:00 Dextrose (Dextrose 50%-Water Syringe) 12.5 gm PRN Q15MIN PRN IV SEE COMMENTS; Start 02/01/17 at 20:15 Albuterol Sulfate (Ventolin Neb Soln) 2.5 mg PRN Q4HRS PRN NEB SHORTNESS OF BREATH; Start 02/01/17 at 20:15 Guaifenesin (Robitussin) 200 mg PRN Q4HRS PRN PO COUGH; Start 02/01/17 at 20:15 Magnesium Sulfate/ Dextrose 50 ml @ 25 mls/hr 1X ONCE IV Last administered on 02/01/17 20:53; Start 02/01/17 at 20:15; Stop 02/01/17 at 22:14; Status DC Sodium Chloride 1,000 ml @ 1,000 mls/hr 1X ONCE IV Last administered on 21:30; Start 02/01/17 at 21:30; Stop 02/01/17 at 22:29; Status DC Piperacillin Sod/ Tazobactam Sod 2.25 gm/Sodium Chloride 50 ml @ 100 mls/hr Q6HRS IV Last administered on 02/02/17 12:46; Start 02/02/17 at 00:00; Stop at 13:07; Status DC Vancomycin HCl 1 gm/Sodium Chloride 250 ml @ 250 mls/hr Q24H IV Last administered on 02/03/17 21:29; Start 02/02/17 at 20:00; Stop 02/04/17 at 02:00 ; Status DC Vancomycin HCl 1 each 1X ONCE MC Last administered on 02/03/17 19:30; Start 02/03/17 at 19:30; Stop 02/03/17 at 19:31; Status DC Levofloxacin (Levaquin) 500 mg QODAY PO Last administered on 02/03/17 08:30; Start 02/03/17 at 09:00 Piperacillin Sod/ Tazobactam Sod 3.375 gm/Sodium Chloride 50 ml @ 100 mls/hr Q6HRS IV Last administered on 02/04/17 06:12; Start 02/02/17 at 18:00 Tbo-Filgrastim (Granix) 480 mcg QHS SQ Last administered on 02/03/17 21:28; Start 02/03/17 at 21:00 Vancomycin HCl 750 mg/Sodium Chloride 250 ml @ 250 mls/hr Q12H IV ; Start 02/04 at 09:00; Stop 02/04/17 at 09:00; Status DC Vancomycin HCl 1 each 1X ONCE MC ; Start 02/05/17 at 08:30; Stop 02/05/17 at 08 :30; Status DC Active Scripts Active Tamiflu (Oseltamivir Phosphate) 75 Mg Capsule 1 Cap PO BID Reported Zofran Odt (Ondansetron) 8 Mg Tab.rapdis 1 Tab PO PRN PRN Diphenhydramine Hcl 25 Mg Capsule 25 Mg PO QHS Levemir Flextouch (Insulin Detemir) 100 Unit/1 Ml Insuln.pen 10 Unit SQ QHS Prilosec (Omeprazole) 20 Mg Capsule.dr 20 Mg PO DAILY Gabapentin 300 Mg Capsule 300 Mg PO BID Vitals/I & O Vital Sign - Last 24 Hours 02/03/17 02/03/17 02/03/17 02/03/17 15:00 19:00 20:00 23:07 Temp 97.9 99.6 98.8 97.9 99.6 98.8 Pulse 77 67 62 Resp 18 18 18 B/P (MAP) 109/48 (68) 107/42 (63) 114/43 (66) Pulse Ox 95 92 93 O2 Delivery Room Air Room Air Room Air Room Air 02/04/17 02/04/17 02/04/17 02/04/17 03:00 07:00 07:40 10:44 Temp 99.4 99.6 100.7 99.4 99.6 100.7 Pulse 82 73 90 Resp 18 18 18 B/P (MAP) 118/66 (83) 123/51 (75) 132/54 (80) Pulse Ox 94 91 90 O2 Delivery Room Air Room Air Room Air Room Air Intake and Output 02/03/17 02/03/17 02/04/17 15:00 23:00 07:00 Intake Total 400 ml 1220 ml Balance 400 ml 1220 ml Nutrition Consultation Dietary Evaluation: Recommendations by RD: Increase Calorie Intake, Protein supplementation Comments: boost plus tid yogurt bid Expected Outcomes/Goals: to meet > 75% est nutr needs Malnutrition Findings: Body Fat Depletion (Non Severe: Mild Depletion Weight Status: Appropriate PANKAJ FUENTES MD Feb 04, 2017 11:12
[2017-02-04 15:05] VITALS: BP 141/51
[2017-02-04] MEDS: ACETAMINOPHEN 325 MG TABLET. PO PRN (16:50)
[2017-02-04 19:00] VITALS: BP 113/56
[2017-02-04] MEDS: diphenhydrAMINE HCL 25 MG CAPSULE PO SCH (22:03)
[2017-02-04] MEDS: TBO-FILGRASTIM 480 MCG/0.8 ML SYRINGE. SQ SCH (22:05)
[2017-02-04] MEDS: INSULIN DETEMIR 300 UNITS/3 ML INSULN.PEN. SQ SCH (22:12)
[2017-02-04 23:00] VITALS: BP 119/57
[2017-02-05] MEDS: PIPERACILLIN/TAZOBACTAM 3.375 GM in IV NORMAL SALINE 50ML 50 ML IV SCH ×3 (00:01→11:42)
[2017-02-05 03:00] VITALS: BP 108/48
[2017-02-05 04:31] LABS: BASO % 0 % (0-3); EOS % 2 % (0-3); HEMATOCRIT 23.8 % (39.0-53.0); HEMOGLOBIN 8.3 g/dL (13.0-17.5); LYMPH # 0.3 x10^3/uL (1.0-4.8); LYMPH % 30 % (24-48); MEAN CORPUSCULAR HEMOGLOBIN 32 pg (25-35); MEAN CORPUSCULAR HGB CONC 35 g/dL (31-37); MEAN CORPUSCULAR VOLUME 91 fL (79-100); MONO % 11 % (0-9); NEUT % 57 % (31-73); PLATELET COUNT 34 x10^3/uL (140-400); RED BLOOD COUNT 2.63 x10^6/uL (4.30-5.70)
[2017-02-05 04:33] LABS: WHITE BLOOD COUNT 0.9 x10^3/uL (4.0-11.0)
[2017-02-05 04:52] LABS: CALCIUM 7.8 mg/dL (8.5-10.1); CREATININE 1.3 mg/dL (0.7-1.3); GFR 52.1; POTASSIUM 3.4 mmol/L (3.5-5.1)
[2017-02-05 07:00] VITALS: BP 143/45
[2017-02-05] MEDS: GABAPENTIN 300 MG CAPSULE. PO SCH ×2 (08:03→20:12)
[2017-02-05] MEDS: PANTOPRAZOLE 40 MG TABLET.DR. PO SCH (08:03)
[2017-02-05] MEDS: INSULIN ASPART 300 UNITS/3 ML INSULN.PEN SQ SCH ×3 (08:12→17:26)
--- NOTE | 2017-02-05 10:15 | RAD ---
PA and lateral chest. History: Pneumonia PA and lateral views were taken of the chest. There is been an increase in the infiltrates in the right upper lobe compared to the study of February 01 consistent with mild worsening in the pneumonia. There is also mild basilar infiltrate in the left lower lobe with little change. There are no significant effusions. Impression: 1. Pneumonia with mild worsening in the right upper lobe.
[2017-02-05 11:00] VITALS: BP 115/43
--- NOTE | 2017-02-05 11:23 | PDOC ---
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 HTN controlled DM2 controlled lactate acidosis sepsis with PNA hypomagnesemia ckd3 mild malnutrition mild elevated transaminitis DNR DNI History of Present Illness History of Present Illness Fever persists 101.5 yesterday 3 PM Up in chair Some cough but not nasty sounding DTrs at bedside WBC 0.9 on granix Platelets lowest its ever been (34- baseline is 57) NO bleeding HGb stable at 8.5 PLAN: rpt interval CXR today for the persistent fever - showed worsening PNA Consult pulmo given above finding Sputum cs if able to get MOnitor for bleeding given low platelets DNR/DNI Dw 2 dtrs Vitals Vitals Vital Signs Date Time Temp Pulse Resp B/P (MAP) Pulse Ox O2 Delivery O2 Flow Rate FiO2 02/05/17 07:50 Room Air 02/05/17 07:00 99.1 67 143/45 (77) 94 99.1 02/05/17 03:00 18 Physical Exam General: Alert, Oriented X3 Heart: Normal S1, Normal S2 Lungs: Other (normal air entry) Abdomen: Normal bowel sounds, Soft Extremities: No clubbing, No cyanosis Skin: No rashes, No breakdown Labs LABS Laboratory Tests Test 02/04/17 16:21 02/04/17 20:54 02/05/17 04:01 Glucose (Fingerstick) 284 mg/dL (70-99) 171 mg/dL (70-99) White Blood Count 0.9 x10^3/uL (4.0-11.0) Red Blood Count 2.63 x10^6/uL (4.30-5.70) Hemoglobin 8.3 g/dL (13.0-17.5) Hematocrit 23.8 % (39.0-53.0) Mean Corpuscular Volume 91 fL (79-100) Mean Corpuscular Hemoglobin 32 pg (25-35) Mean Corpuscular Hemoglobin Concent 35 g/dL (31-37) Red Cell Distribution Width 17.0 % (11.5-14.5) Platelet Count 34 x10^3/uL (140-400) Neutrophils (%) (Auto) 57 % (31-73) Lymphocytes (%) (Auto) 30 % (24-48) Monocytes (%) (Auto) 11 % (0-9) Eosinophils (%) (Auto) 2 % (0-3) Basophils (%) (Auto) 0 % (0-3) Neutrophils # (Auto) 0.5 x10^3uL (1.8-7.7) Lymphocytes # (Auto) 0.3 x10^3/uL (1.0-4.8) Monocytes # (Auto) 0.1 x10^3/uL (0.0-1.1) Eosinophils # (Auto) 0.0 x10^3/uL (0.0-0.7) Basophils # (Auto) 0.0 x10^3/uL (0.0-0.2) Sodium Level 136 mmol/L (136-145) Potassium Level 3.4 mmol/L (3.5-5.1) Chloride Level 105 mmol/L (98-107) Carbon Dioxide Level 21 mmol/L (21-32) Anion Gap 10 (6-14) Blood Urea Nitrogen 18 mg/dL (8-26) Creatinine 1.3 mg/dL (0.7-1.3) Estimated GFR (Cockcroft-Gault) 52.1 Glucose Level 214 mg/dL (70-99) Calcium Level 7.8 mg/dL (8.5-10.1) Assessment and Plan Assessmemt and Plan Problems Medical Problems: (1) Lactic acid acidosis Status: Acute (2) Pancytopenia Status: Acute (3) Sepsis Status: Acute Problems: Comment Review of Relevant I have reviewed the following items dora (where applicable) has been applied. Labs Laboratory Tests Test 02/03/17 11:40 02/03/17 16:50 02/03/17 19:15 02/04/17 07:41 Glucose (Fingerstick) 184 mg/dL (70-99) 201 mg/dL (70-99) 186 mg/dL (70-99) Vancomycin Level Trough 9.3 mcg/mL (10.0-20.0) Vancomycin Last Dose Date 02/02/17 Vancomycin Last Dose Time 1999 Test 02/04/17 09:57 02/04/17 10:40 02/04/17 16:21 02/04/17 20:54 Glucose (Fingerstick) 183 mg/dL (70-99) 284 mg/dL (70-99) 171 mg/dL (70-99) White Blood Count 0.8 x10^3/uL (4.0-11.0) Red Blood Count 2.93 x10^6/uL (4.30-5.70) Hemoglobin 9.3 g/dL (13.0-17.5) Hematocrit 26.3 % (39.0-53.0) Mean Corpuscular Volume 90 fL (79-100) Mean Corpuscular Hemoglobin 32 pg (25-35) Mean Corpuscular Hemoglobin Concent 35 g/dL (31-37) Red Cell Distribution Width 16.4 % (11.5-14.5) Platelet Count 36 x10^3/uL (140-400) Neutrophils (%) (Auto) 63 % (31-73) Lymphocytes (%) (Auto) 27 % (24-48) Monocytes (%) (Auto) 10 % (0-9) Eosinophils (%) (Auto) 1 % (0-3) Basophils (%) (Auto) 0 % (0-3) Neutrophils # (Auto) 0.5 x10^3uL (1.8-7.7) Lymphocytes # (Auto) 0.2 x10^3/uL (1.0-4.8) Monocytes # (Auto) 0.1 x10^3/uL (0.0-1.1) Eosinophils # (Auto) 0.0 x10^3/uL (0.0-0.7) Basophils # (Auto) 0.0 x10^3/uL (0.0-0.2) Test 02/05/17 04:01 White Blood Count 0.9 x10^3/uL (4.0-11.0) Red Blood Count 2.63 x10^6/uL (4.30-5.70) Hemoglobin 8.3 g/dL (13.0-17.5) Hematocrit 23.8 % (39.0-53.0) Mean Corpuscular Volume 91 fL (79-100) Mean Corpuscular Hemoglobin 32 pg (25-35) Mean Corpuscular Hemoglobin Concent 35 g/dL (31-37) Red Cell Distribution Width 17.0 % (11.5-14.5) Platelet Count 34 x10^3/uL (140-400) Neutrophils (%) (Auto) 57 % (31-73) Lymphocytes (%) (Auto) 30 % (24-48) Monocytes (%) (Auto) 11 % (0-9) Eosinophils (%) (Auto) 2 % (0-3) Basophils (%) (Auto) 0 % (0-3) Neutrophils # (Auto) 0.5 x10^3uL (1.8-7.7) Lymphocytes # (Auto) 0.3 x10^3/uL (1.0-4.8) Monocytes # (Auto) 0.1 x10^3/uL (0.0-1.1) Eosinophils # (Auto) 0.0 x10^3/uL (0.0-0.7) Basophils # (Auto) 0.0 x10^3/uL (0.0-0.2) Sodium Level 136 mmol/L (136-145) Potassium Level 3.4 mmol/L (3.5-5.1) Chloride Level 105 mmol/L (98-107) Carbon Dioxide Level 21 mmol/L (21-32) Anion Gap 10 (6-14) Blood Urea Nitrogen 18 mg/dL (8-26) Creatinine 1.3 mg/dL (0.7-1.3) Estimated GFR (Cockcroft-Gault) 52.1 Glucose Level 214 mg/dL (70-99) Calcium Level 7.8 mg/dL (8.5-10.1) Laboratory Tests Test 02/04/17 16:21 02/04/17 20:54 02/05/17 04:01 Glucose (Fingerstick) 284 mg/dL (70-99) 171 mg/dL (70-99) White Blood Count 0.9 x10^3/uL (4.0-11.0) Red Blood Count 2.63 x10^6/uL (4.30-5.70) Hemoglobin 8.3 g/dL (13.0-17.5) Hematocrit 23.8 % (39.0-53.0) Mean Corpuscular Volume 91 fL (79-100) Mean Corpuscular Hemoglobin 32 pg (25-35) Mean Corpuscular Hemoglobin Concent 35 g/dL (31-37) Red Cell Distribution Width 17.0 % (11.5-14.5) Platelet Count 34 x10^3/uL (140-400) Neutrophils (%) (Auto) 57 % (31-73) Lymphocytes (%) (Auto) 30 % (24-48) Monocytes (%) (Auto) 11 % (0-9) Eosinophils (%) (Auto) 2 % (0-3) Basophils (%) (Auto) 0 % (0-3) Neutrophils # (Auto) 0.5 x10^3uL (1.8-7.7) Lymphocytes # (Auto) 0.3 x10^3/uL (1.0-4.8) Monocytes # (Auto) 0.1 x10^3/uL (0.0-1.1) Eosinophils # (Auto) 0.0 x10^3/uL (0.0-0.7) Basophils # (Auto) 0.0 x10^3/uL (0.0-0.2) Sodium Level 136 mmol/L (136-145) Potassium Level 3.4 mmol/L (3.5-5.1) Chloride Level 105 mmol/L (98-107) Carbon Dioxide Level 21 mmol/L (21-32) Anion Gap 10 (6-14) Blood Urea Nitrogen 18 mg/dL (8-26) Creatinine 1.3 mg/dL (0.7-1.3) Estimated GFR (Cockcroft-Gault) 52.1 Glucose Level 214 mg/dL (70-99) Calcium Level 7.8 mg/dL (8.5-10.1) Microbiology 02/01/17 Blood Culture - Preliminary, Resulted NO GROWTH AFTER 3 DAYS Medications Current Medications Tbo-Filgrastim (Granix) 300 mcg QHS SQ Last administered on 02/02/17 20:28; Start 02/01/17 at 21:00; Stop 02/03/17 at 11:54; Status DC Levofloxacin/ Dextrose 100 ml @ 100 mls/hr 1X ONCE IV Last administered on 20:53; Start 02/01/17 at 20:00; Stop 02/01/17 at 20:59; Status DC Vancomycin HCl (Vanco Per Pharmacy) 1 each PRN DAILY PRN MC SEE COMMENTS Last administered on 02/03/17 20:08; Start 02/01/17 at 20:00; Stop 02/04/17 at 07:43 ; Status DC Piperacillin Sod/ Tazobactam Sod 3.375 gm/Sodium Chloride 50 ml @ 100 mls/hr 1X ONCE IV Last administered on 02/01/17 20:52; Start 02/01/17 at 20:00; Stop 02/01/17 at 20:29; Status DC Ondansetron HCl (Zofran) 4 mg PRN Q8HRS PRN IV NAUSEA/VOMITING; Start 02/01/17 at 20:00; Stop 02/02/17 at 13:09; Status DC Acetaminophen (Tylenol) 650 mg PRN Q4HRS PRN PO FEVER Last administered on 02/01 23:41; Start 02/01/17 at 20:00; Stop 02/02/17 at 13:04; Status DC Vancomycin HCl 1.5 gm/Sodium Chloride 500 ml @ 250 mls/hr 1X ONCE IV Last administered on 02/01/17 20:15; Start 02/01/17 at 20:15; Stop 02/01/17 at 22:14 ; Status DC Diphenhydramine HCl (Benadryl) 25 mg QHS PO Last administered on 02/04/17 22: 03; Start 02/01/17 at 21:00 Insulin Detemir (Levemir) 10 units QHS SQ Last administered on 02/04/17 22:12 ; Start 02/01/17 at 21:00 Gabapentin (Neurontin) 300 mg BID PO Last administered on 02/05/17 08:03; Start 02/01/17 at 21:00 Pantoprazole Sodium (Protonix) 40 mg DAILYAC PO Last administered on 02/05/17 08:03; Start 02/02/17 at 07:30 Acetaminophen (Tylenol) 650 mg PRN Q6HRS PRN PO FEVER Last administered on 02/04 16:50; Start 02/01/17 at 20:15 Ondansetron HCl (Zofran) 4 mg PRN Q6HRS PRN IV NAUSEA/VOMITING; Start 02/01/17 at 20:15 Morphine Sulfate 2 mg PRN Q2HR PRN IV PAIN; Start 02/01/17 at 20:15 Tramadol HCl (Ultram) 50 mg PRN Q6HRS PRN PO PAIN; Start 02/01/17 at 20:15 Hydralazine HCl (Apresoline) 10 mg PRN Q4HRS PRN IVP ELEVATED BP, SEE COMMENTS ; Start 02/01/17 at 20:15 Docusate Sodium (Colace) 100 mg PRN DAILY PRN PO CONSTIPATION; Start 02/01/17 at 20:15 Piperacillin Sod/ Tazobactam Sod (Zosyn Per Pharmacy) 1 each PRN DAILY PRN MC SEE COMMENTS; Start 02/01/17 at 20:15 Insulin Aspart (NovoLOG) 0-9 UNITS TIDWMEALS SQ Last administered on 02/05/17 08:12; Start 02/02/17 at 08:00 Dextrose (Dextrose 50%-Water Syringe) 12.5 gm PRN Q15MIN PRN IV SEE COMMENTS; Start 02/01/17 at 20:15 Albuterol Sulfate (Ventolin Neb Soln) 2.5 mg PRN Q4HRS PRN NEB SHORTNESS OF BREATH; Start 02/01/17 at 20:15 Guaifenesin (Robitussin) 200 mg PRN Q4HRS PRN PO COUGH; Start 02/01/17 at 20:15 Magnesium Sulfate/ Dextrose 50 ml @ 25 mls/hr 1X ONCE IV Last administered on 02/01/17 20:53; Start 02/01/17 at 20:15; Stop 02/01/17 at 22:14; Status DC Sodium Chloride 1,000 ml @ 1,000 mls/hr 1X ONCE IV Last administered on 21:30; Start 02/01/17 at 21:30; Stop 02/01/17 at 22:29; Status DC Piperacillin Sod/ Tazobactam Sod 2.25 gm/Sodium Chloride 50 ml @ 100 mls/hr Q6HRS IV Last administered on 02/02/17 12:46; Start 02/02/17 at 00:00; Stop at 13:07; Status DC Vancomycin HCl 1 gm/Sodium Chloride 250 ml @ 250 mls/hr Q24H IV Last administered on 02/03/17 21:29; Start 02/02/17 at 20:00; Stop 02/04/17 at 02:00 ; Status DC Vancomycin HCl 1 each 1X ONCE MC Last administered on 02/03/17 19:30; Start 02/03/17 at 19:30; Stop 02/03/17 at 19:31; Status DC Levofloxacin (Levaquin) 500 mg QODAY PO Last administered on 02/05/17 08:03; Start 02/03/17 at 09:00 Piperacillin Sod/ Tazobactam Sod 3.375 gm/Sodium Chloride 50 ml @ 100 mls/hr Q6HRS IV Last administered on 02/05/17 05:54; Start 02/02/17 at 18:00 Tbo-Filgrastim (Granix) 480 mcg QHS SQ Last administered on 02/04/17 22:05; Start 02/03/17 at 21:00 Vancomycin HCl 750 mg/Sodium Chloride 250 ml @ 250 mls/hr Q12H IV ; Start 02/04 at 09:00; Stop 02/04/17 at 09:00; Status DC Vancomycin HCl 1 each 1X ONCE MC ; Start 02/05/17 at 08:30; Stop 02/05/17 at 08 :30; Status DC Active Scripts Active Tamiflu (Oseltamivir Phosphate) 75 Mg Capsule 1 Cap PO BID Reported Zofran Odt (Ondansetron) 8 Mg Tab.rapdis 1 Tab PO PRN PRN Diphenhydramine Hcl 25 Mg Capsule 25 Mg PO QHS Levemir Flextouch (Insulin Detemir) 100 Unit/1 Ml Insuln.pen 10 Unit SQ QHS Prilosec (Omeprazole) 20 Mg Capsule.dr 20 Mg PO DAILY Gabapentin 300 Mg Capsule 300 Mg PO BID Vitals/I & O Vital Sign - Last 24 Hours 02/04/17 02/04/17 02/04/17 02/04/17 15:05 19:00 20:00 23:00 Temp 101.5 98.2 98.9 101.5 98.2 98.9 Pulse 86 78 85 Resp 18 18 17 B/P (MAP) 141/51 (81) 113/56 (75) 119/57 (77) Pulse Ox 95 90 91 O2 Delivery Room Air Room Air Room Air Room Air 02/05/17 02/05/17 02/05/17 03:00 07:00 07:50 Temp 98.3 99.1 98.3 99.1 Pulse 80 67 Resp 18 B/P (MAP) 108/48 (68) 143/45 (77) Pulse Ox 94 94 O2 Delivery Room Air Room Air Room Air Intake and Output 02/04/17 02/04/17 02/05/17 15:00 23:00 07:00 Intake Total 420 ml 720 ml Balance 420 ml 720 ml Nutrition Consultation Dietary Evaluation: Recommendations by RD: Increase Calorie Intake, Protein supplementation Comments: boost plus tid yogurt bid Expected Outcomes/Goals: to meet > 75% est nutr needs Malnutrition Findings: Body Fat Depletion (Non Severe: Mild Depletion Weight Status: Appropriate PANKAJ FUENTES MD Feb 05, 2017 11:23
--- NOTE | 2017-02-05 13:06 | PDOC ---
Infectious Disease Note Subjective Subjective Doing ok. Occ cough Dry throat Strength and energy level improving Eating some, but appetite in general has been low denies chest discomfort or SOA ROS ROS GEN: Denies fevers, chills, sweats HEENT: Denies blurred vision, sore throat CV: Denies chest pain RESP: Denies shortness of air, cough GI: Denies n/v/d NEURO: Denies confusion, dizziness MSK: Denies weakness, joint pain/swelling Vital Sign Vital Signs Vital Signs Date Time Temp Pulse Resp B/P (MAP) Pulse Ox O2 Delivery O2 Flow Rate FiO2 02/05/17 11:25 96 Room Air 02/05/17 11:00 101.0 73 18 115/43 (67) 101.0 Physical Exam PHYSICAL EXAM GENERAL: NAD, Alert, in chair HEENT: PERRL, OC/OP- clear NECK: Supple, no JVD, no LN LUNGS: Clear HEART: S1S2, no gallop, no murmur ABD: Soft, NT, no organomegaly, no rebound EXT: No edema, no cyanosis SR. MANAGER: Alert, 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, no focal neurologic deficit SKIN: No rash IV: ok Labs Lab Laboratory Tests Test 02/04/17 16:21 02/04/17 20:54 02/05/17 04:01 Glucose (Fingerstick) 284 mg/dL (70-99) 171 mg/dL (70-99) White Blood Count 0.9 x10^3/uL (4.0-11.0) Red Blood Count 2.63 x10^6/uL (4.30-5.70) Hemoglobin 8.3 g/dL (13.0-17.5) Hematocrit 23.8 % (39.0-53.0) Mean Corpuscular Volume 91 fL (79-100) Mean Corpuscular Hemoglobin 32 pg (25-35) Mean Corpuscular Hemoglobin Concent 35 g/dL (31-37) Red Cell Distribution Width 17.0 % (11.5-14.5) Platelet Count 34 x10^3/uL (140-400) Neutrophils (%) (Auto) 57 % (31-73) Lymphocytes (%) (Auto) 30 % (24-48) Monocytes (%) (Auto) 11 % (0-9) Eosinophils (%) (Auto) 2 % (0-3) Basophils (%) (Auto) 0 % (0-3) Neutrophils # (Auto) 0.5 x10^3uL (1.8-7.7) Lymphocytes # (Auto) 0.3 x10^3/uL (1.0-4.8) Monocytes # (Auto) 0.1 x10^3/uL (0.0-1.1) Eosinophils # (Auto) 0.0 x10^3/uL (0.0-0.7) Basophils # (Auto) 0.0 x10^3/uL (0.0-0.2) Sodium Level 136 mmol/L (136-145) Potassium Level 3.4 mmol/L (3.5-5.1) Chloride Level 105 mmol/L (98-107) Carbon Dioxide Level 21 mmol/L (21-32) Anion Gap 10 (6-14) Blood Urea Nitrogen 18 mg/dL (8-26) Creatinine 1.3 mg/dL (0.7-1.3) Estimated GFR (Cockcroft-Gault) 52.1 Glucose Level 214 mg/dL (70-99) Calcium Level 7.8 mg/dL (8.5-10.1) Micro CXR 02/05 Impression: 1. Pneumonia with mild worsening in the right upper lobe. Objective Assessment Fever - recurrent. ? ID vs neupogen. CXR with worse infiltrate may be sec to aspiration and vomit 02/03 Neutropenia - s/p chemo last month but will not take anymore. Receiving Neupogen MDS Aspiration, Bedside swallow: functional but easily distracted. cough CKD H/o MSSA cellulitis Plan Plan of Care D/c levofloxacin/Zosyn Add Zyvox/Vfend/Cefepime Strep urinary antigen negative On Granix Monitor counts/cultures D/w family AKIN NEFF MD Feb 05, 2017 13:05
--- NOTE | 2017-02-05 13:07 | PDOC2 ---
CONSULT Date of Consult Date of Consult DATE: 02/05/17 TIME: 12:58 Reason for Consult Reason for Consult: worsening pneumonia Referring Physician Referring Physician: Dr Diaz Identification/Chief Complaint Chief Complaint cough Problems: History of Present Illness Reason for Visit: The patient is an 86-year-old gentleman who was diagnosed with myelodysplastic syndrome and he was started on chemotherapy with Vidaza on 08/25/2014. He received cycle #19, day #7 on 01/27/2016. s/p [id number] on 01/03/17 .s/p PRBC transfusion. He is no longer responding to chemotherapy. His hemoglobin has been progressively getting worse requiring frequent transfusions Chemo was discontinued However, he has had persistent neutropenia requiring Neupogen injections. His daughter contributes to the history he began to feel weak 02/01/17 with fever . 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 No bug bites or tick bites Pt was found T 102 at home, cough with clear sputum x1week. no chest pain, dysuria, skin rash or wound. Has some nausea, mild vomiting today, fell - more of a slide down and bump only his arm, no loss of consciousness. in ER, T 99.9, WBC 0.5, ANC 0.3, Hb 7.4, plt 51 CXR revealed worsening pneumonia RUL I was asked to see the patient because of pneumonia Past Medical History Cardiovascular: CAD, HTN Pulmonary: COPD Heme/Onc: Other (MDS) Endocrine: Diabetes Past Surgical History Past Surgical History: CABG Family History Family History: Hypertension Social History Quit ALCOHOL: none Drugs: None Current Problem List Problem List Problems Medical Problems: (1) Lactic acid acidosis Status: Acute (2) Pancytopenia Status: Acute (3) Sepsis Status: Acute Current Medications Current Medications Current Medications Tbo-Filgrastim (Granix) 300 mcg QHS SQ Last administered on 02/02/17 20:28; Start 02/01/17 at 21:00; Stop 02/03/17 at 11:54; Status DC Levofloxacin/ Dextrose 100 ml @ 100 mls/hr 1X ONCE IV Last administered on 20:53; Start 02/01/17 at 20:00; Stop 02/01/17 at 20:59; Status DC Vancomycin HCl (Vanco Per Pharmacy) 1 each PRN DAILY PRN MC SEE COMMENTS Last administered on 02/03/17 20:08; Start 02/01/17 at 20:00; Stop 02/04/17 at 07:43 ; Status DC Piperacillin Sod/ Tazobactam Sod 3.375 gm/Sodium Chloride 50 ml @ 100 mls/hr 1X ONCE IV Last administered on 02/01/17 20:52; Start 02/01/17 at 20:00; Stop 02/01/17 at 20:29; Status DC Ondansetron HCl (Zofran) 4 mg PRN Q8HRS PRN IV NAUSEA/VOMITING; Start 02/01/17 at 20:00; Stop 02/02/17 at 13:09; Status DC Acetaminophen (Tylenol) 650 mg PRN Q4HRS PRN PO FEVER Last administered on 02/01 23:41; Start 02/01/17 at 20:00; Stop 02/02/17 at 13:04; Status DC Vancomycin HCl 1.5 gm/Sodium Chloride 500 ml @ 250 mls/hr 1X ONCE IV Last administered on 02/01/17 20:15; Start 02/01/17 at 20:15; Stop 02/01/17 at 22:14 ; Status DC Diphenhydramine HCl (Benadryl) 25 mg QHS PO Last administered on 02/04/17 22: 03; Start 02/01/17 at 21:00 Insulin Detemir (Levemir) 10 units QHS SQ Last administered on 02/04/17 22:12 ; Start 02/01/17 at 21:00 Gabapentin (Neurontin) 300 mg BID PO Last administered on 02/05/17 08:03; Start 02/01/17 at 21:00 Pantoprazole Sodium (Protonix) 40 mg DAILYAC PO Last administered on 02/05/17 08:03; Start 02/02/17 at 07:30 Acetaminophen (Tylenol) 650 mg PRN Q6HRS PRN PO FEVER Last administered on 02/04 16:50; Start 02/01/17 at 20:15 Ondansetron HCl (Zofran) 4 mg PRN Q6HRS PRN IV NAUSEA/VOMITING; Start 02/01/17 at 20:15 Morphine Sulfate 2 mg PRN Q2HR PRN IV PAIN; Start 02/01/17 at 20:15 Tramadol HCl (Ultram) 50 mg PRN Q6HRS PRN PO PAIN; Start 02/01/17 at 20:15 Hydralazine HCl (Apresoline) 10 mg PRN Q4HRS PRN IVP ELEVATED BP, SEE COMMENTS ; Start 02/01/17 at 20:15 Docusate Sodium (Colace) 100 mg PRN DAILY PRN PO CONSTIPATION; Start 02/01/17 at 20:15 Piperacillin Sod/ Tazobactam Sod (Zosyn Per Pharmacy) 1 each PRN DAILY PRN MC SEE COMMENTS; Start 02/01/17 at 20:15 Insulin Aspart (NovoLOG) 0-9 UNITS TIDWMEALS SQ Last administered on 02/05/17 11:47; Start 02/02/17 at 08:00 Dextrose (Dextrose 50%-Water Syringe) 12.5 gm PRN Q15MIN PRN IV SEE COMMENTS; Start 02/01/17 at 20:15 Albuterol Sulfate (Ventolin Neb Soln) 2.5 mg PRN Q4HRS PRN NEB SHORTNESS OF BREATH; Start 02/01/17 at 20:15 Guaifenesin (Robitussin) 200 mg PRN Q4HRS PRN PO COUGH; Start 02/01/17 at 20:15 Magnesium Sulfate/ Dextrose 50 ml @ 25 mls/hr 1X ONCE IV Last administered on 02/01/17 20:53; Start 02/01/17 at 20:15; Stop 02/01/17 at 22:14; Status DC Sodium Chloride 1,000 ml @ 1,000 mls/hr 1X ONCE IV Last administered on 21:30; Start 02/01/17 at 21:30; Stop 02/01/17 at 22:29; Status DC Piperacillin Sod/ Tazobactam Sod 2.25 gm/Sodium Chloride 50 ml @ 100 mls/hr Q6HRS IV Last administered on 02/02/17 12:46; Start 02/02/17 at 00:00; Stop at 13:07; Status DC Vancomycin HCl 1 gm/Sodium Chloride 250 ml @ 250 mls/hr Q24H IV Last administered on 02/03/17 21:29; Start 02/02/17 at 20:00; Stop 02/04/17 at 02:00 ; Status DC Vancomycin HCl 1 each 1X ONCE MC Last administered on 02/03/17 19:30; Start 02/03/17 at 19:30; Stop 02/03/17 at 19:31; Status DC Levofloxacin (Levaquin) 500 mg QODAY PO Last administered on 02/05/17 08:03; Start 02/03/17 at 09:00 Piperacillin Sod/ Tazobactam Sod 3.375 gm/Sodium Chloride 50 ml @ 100 mls/hr Q6HRS IV Last administered on 02/05/17 11:42; Start 02/02/17 at 18:00 Tbo-Filgrastim (Granix) 480 mcg QHS SQ Last administered on 02/04/17 22:05; Start 02/03/17 at 21:00 Vancomycin HCl 750 mg/Sodium Chloride 250 ml @ 250 mls/hr Q12H IV ; Start 02/04 at 09:00; Stop 02/04/17 at 09:00; Status DC Vancomycin HCl 1 each 1X ONCE MC ; Start 02/05/17 at 08:30; Stop 02/05/17 at 08 :30; Status DC Active Scripts Active Tamiflu (Oseltamivir Phosphate) 75 Mg Capsule 1 Cap PO BID Reported Zofran Odt (Ondansetron) 8 Mg Tab.rapdis 1 Tab PO PRN PRN Diphenhydramine Hcl 25 Mg Capsule 25 Mg PO QHS Levemir Flextouch (Insulin Detemir) 100 Unit/1 Ml Insuln.pen 10 Unit SQ QHS Prilosec (Omeprazole) 20 Mg Capsule.dr 20 Mg PO DAILY Gabapentin 300 Mg Capsule 300 Mg PO BID Allergies Allergies: Coded Allergies: Iodinated Contrast- Oral and IV Dye (Verified Allergy, Intermediate, BAD RASH, 01/20/17) ROS Review of System Mild cough, no hemoptysis, no N/V/D. some wt loss, otherwis enon-contributry Physical Exam General: Alert, No acute distress Lungs: Other (decrease bs) Heart: Regular rate Abdomen: Normal bowel sounds, Soft Extremities: No clubbing, No cyanosis Skin: No rashes, No breakdown Neuro: Normal gait Psych/Mental Status: Mental status NL Vitals VITALS Vital Signs Date Time Temp Pulse Resp B/P (MAP) Pulse Ox O2 Delivery O2 Flow Rate FiO2 02/05/17 11:25 96 Room Air 02/05/17 11:00 101.0 73 18 115/43 (67) 101.0 Labs Labs Laboratory Tests Test 02/03/17 16:50 02/03/17 19:15 02/04/17 07:41 02/04/17 09:57 Glucose (Fingerstick) 201 mg/dL (70-99) 186 mg/dL (70-99) 183 mg/dL (70-99) Vancomycin Level Trough 9.3 mcg/mL (10.0-20.0) Vancomycin Last Dose Date 02/02/17 Vancomycin Last Dose Time 2000 Test 02/04/17 10:40 02/04/17 16:21 02/04/17 20:54 02/05/17 04:01 White Blood Count 0.8 x10^3/uL (4.0-11.0) 0.9 x10^3/uL (4.0-11.0) Red Blood Count 2.93 x10^6/uL (4.30-5.70) 2.63 x10^6/uL (4.30-5.70) Hemoglobin 9.3 g/dL (13.0-17.5) 8.3 g/dL (13.0-17.5) Hematocrit 26.3 % (39.0-53.0) 23.8 % (39.0-53.0) Mean Corpuscular Volume 90 fL (79-100) 91 fL (79-100) Mean Corpuscular Hemoglobin 32 pg (25-35) 32 pg (25-35) Mean Corpuscular Hemoglobin Concent 35 g/dL (31-37) 35 g/dL (31-37) Red Cell Distribution Width 16.4 % (11.5-14.5) 17.0 % (11.5-14.5) Platelet Count 36 x10^3/uL (140-400) 34 x10^3/uL (140-400) Neutrophils (%) (Auto) 63 % (31-73) 57 % (31-73) Lymphocytes (%) (Auto) 27 % (24-48) 30 % (24-48) Monocytes (%) (Auto) 10 % (0-9) 11 % (0-9) Eosinophils (%) (Auto) 1 % (0-3) 2 % (0-3) Basophils (%) (Auto) 0 % (0-3) 0 % (0-3) Neutrophils # (Auto) 0.5 x10^3uL (1.8-7.7) 0.5 x10^3uL (1.8-7.7) Lymphocytes # (Auto) 0.2 x10^3/uL (1.0-4.8) 0.3 x10^3/uL (1.0-4.8) Monocytes # (Auto) 0.1 x10^3/uL (0.0-1.1) 0.1 x10^3/uL (0.0-1.1) Eosinophils # (Auto) 0.0 x10^3/uL (0.0-0.7) 0.0 x10^3/uL (0.0-0.7) Basophils # (Auto) 0.0 x10^3/uL (0.0-0.2) 0.0 x10^3/uL (0.0-0.2) Glucose (Fingerstick) 284 mg/dL (70-99) 171 mg/dL (70-99) Sodium Level 136 mmol/L (136-145) Potassium Level 3.4 mmol/L (3.5-5.1) Chloride Level 105 mmol/L (98-107) Carbon Dioxide Level 21 mmol/L (21-32) Anion Gap 10 (6-14) Blood Urea Nitrogen 18 mg/dL (8-26) Creatinine 1.3 mg/dL (0.7-1.3) Estimated GFR (Cockcroft-Gault) 52.1 Glucose Level 214 mg/dL (70-99) Calcium Level 7.8 mg/dL (8.5-10.1) Laboratory Tests Test 02/04/17 16:21 02/04/17 20:54 02/05/17 04:01 Glucose (Fingerstick) 284 mg/dL (70-99) 171 mg/dL (70-99) White Blood Count 0.9 x10^3/uL (4.0-11.0) Red Blood Count 2.63 x10^6/uL (4.30-5.70) Hemoglobin 8.3 g/dL (13.0-17.5) Hematocrit 23.8 % (39.0-53.0) Mean Corpuscular Volume 91 fL (79-100) Mean Corpuscular Hemoglobin 32 pg (25-35) Mean Corpuscular Hemoglobin Concent 35 g/dL (31-37) Red Cell Distribution Width 17.0 % (11.5-14.5) Platelet Count 34 x10^3/uL (140-400) Neutrophils (%) (Auto) 57 % (31-73) Lymphocytes (%) (Auto) 30 % (24-48) Monocytes (%) (Auto) 11 % (0-9) Eosinophils (%) (Auto) 2 % (0-3) Basophils (%) (Auto) 0 % (0-3) Neutrophils # (Auto) 0.5 x10^3uL (1.8-7.7) Lymphocytes # (Auto) 0.3 x10^3/uL (1.0-4.8) Monocytes # (Auto) 0.1 x10^3/uL (0.0-1.1) Eosinophils # (Auto) 0.0 x10^3/uL (0.0-0.7) Basophils # (Auto) 0.0 x10^3/uL (0.0-0.2) Sodium Level 136 mmol/L (136-145) Potassium Level 3.4 mmol/L (3.5-5.1) Chloride Level 105 mmol/L (98-107) Carbon Dioxide Level 21 mmol/L (21-32) Anion Gap 10 (6-14) Blood Urea Nitrogen 18 mg/dL (8-26) Creatinine 1.3 mg/dL (0.7-1.3) Estimated GFR (Cockcroft-Gault) 52.1 Glucose Level 214 mg/dL (70-99) Calcium Level 7.8 mg/dL (8.5-10.1) Assessment/Plan Assessment/Plan Impression 1. 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 Myelodysplastic syndrome. He is off chemotherapy with Vidaza. 3. 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 4. 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 5. Worsening right upper lobe pneumonia. Clinically less likely alveolar hemorrhage. Cannot exclude aspiration. Need to rule out any postobstructive process Recommendations 1. Will obtain CT of the chest to better assess for parenchymal infiltrates and also to rule out any postobstructive process 2. Continue present broad-spectrum antibiotics 3. May consider speech evaluation 4. Follow hematology recommendations 5. Further recommendations to follow after CT of the chest. Eric may consider bronchoscopy if clinically needed Specific patient's and daughter. OBEY WREN MD Feb 05, 2017 13:06
[2017-02-05] MEDS: LINEZOLID 600 MG TABLET PO SCH ×2 (13:39→20:12)
[2017-02-05] MEDS: CEFEPIME HCL 1 GM in IV NORMAL SALINE 50ML 50 ML IV SCH ×2 (13:39→20:12)
[2017-02-05] MEDS: VORICONAZOLE 200 MG PO SCH ×2 (13:39→20:12)
[2017-02-05] MEDS: ACETAMINOPHEN 325 MG TABLET. PO PRN (14:57)
[2017-02-05 15:00] VITALS: BP 123/48
--- NOTE | 2017-02-05 15:09 | RAD ---
CT chest without contrast. History: Worsening pneumonia CT scan of the chest was done without contrast. There are gallstones noted in the gallbladder. Visualized portions of liver and spleen are unremarkable. There is a calcified lesion at the upper pole of the right kidney which is seen at the margin of the study. There is a probable cyst at the upper pole the right kidney. There is a trace of pleural effusion on the left with a small right effusion. There is evidence of previous coronary bypass. Mediastinal lymph nodes are within normal limits. There is mild atelectasis or infiltrate in the left lower lobe. There is mild atelectasis or infiltrate along the right diaphragm. There is a consolidating pneumonia in the right upper lobe with air bronchograms. A bronchial obstructing lesion is not evident. Impression: 1. Consolidating infiltrate in the right upper lobe with air bronchograms. 2. No central bronchial occlusive lesion noted. 3. Bilateral effusions trace on the left and small on the right. 4. Atelectasis or mild infiltrates in the lower lobes more on the left than on the right. 5. Prominent calcification and cyst at the upper pole of the right kidney, the right kidney may be abnormal but is just below the imaging. One or more of the following individualized dose reduction techniques were utilized for this examination: 1. Automated exposure control 2. Adjustment of the mA and/or kV according to patient size 3. Use of iterative reconstruction technique
[2017-02-05 19:00] VITALS: BP 123/50
[2017-02-05] MEDS: diphenhydrAMINE HCL 25 MG CAPSULE PO SCH (20:12)
[2017-02-05] MEDS: TBO-FILGRASTIM 480 MCG/0.8 ML SYRINGE. SQ SCH (20:19)
[2017-02-05] MEDS: INSULIN DETEMIR 300 UNITS/3 ML INSULN.PEN. SQ SCH (20:46)
[2017-02-05 23:00] VITALS: BP 133/59
[2017-02-06 06:10] LABS: BASO % 0 % (0-3); EOS % 1 % (0-3); HEMATOCRIT 22.7 % (39.0-53.0); LYMPH # 0.3 x10^3/uL (1.0-4.8); LYMPH % 25 % (24-48); MEAN CORPUSCULAR HEMOGLOBIN 32 pg (25-35); MEAN CORPUSCULAR HGB CONC 35 g/dL (31-37); MEAN CORPUSCULAR VOLUME 91 fL (79-100); MONO % 10 % (0-9); NEUT % 64 % (31-73); PLATELET COUNT 32 x10^3/uL (140-400); RED CELL DISTRIBUTION WIDTH 16.4 % (11.5-14.5)
[2017-02-06 06:13] LABS: WHITE BLOOD COUNT 1.1 x10^3/uL (4.0-11.0)
[2017-02-06 07:00] VITALS: BP 103/50
[2017-02-06] MEDS: PANTOPRAZOLE 40 MG TABLET.DR. PO SCH (09:09)
[2017-02-06] MEDS: GABAPENTIN 300 MG CAPSULE. PO SCH ×2 (09:10→22:28)
[2017-02-06] MEDS: CEFEPIME HCL 1 GM in IV NORMAL SALINE 50ML 50 ML IV SCH ×2 (09:10→22:30)
[2017-02-06] MEDS: LINEZOLID 600 MG TABLET PO SCH ×2 (09:11→22:28)
[2017-02-06] MEDS: INSULIN ASPART 300 UNITS/3 ML INSULN.PEN SQ SCH ×3 (09:20→18:01)
[2017-02-06] MEDS: VORICONAZOLE 200 MG PO SCH ×2 (09:33→22:28)
--- NOTE | 2017-02-06 10:13 | PDOC ---
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 HTN controlled DM2 controlled lactate acidosis sepsis with PNA hypomagnesemia ckd3 mild malnutrition mild elevated transaminitis DNR DNI History of Present Illness History of Present Illness CT scan I have personally reviewed and explained to family Antibiotics have been adjusted - ID was consulted WBC 1.1 on granix Hgb 8 - (family claims they transfuse if < 8) PLAtelets 30s PLAN: CPM antibiotics Follow pulmo and iD recs MOnitor temps Sometimes transfuse palteelts if febrile Transfuse blood if < 8 Dw pt and family Vitals Vitals Vital Signs Date Time Temp Pulse Resp B/P (MAP) Pulse Ox O2 Delivery O2 Flow Rate FiO2 02/06/17 07:00 98.8 69 18 103/50 (67) 96 Room Air 98.8 Physical Exam General: Alert, No acute distress Heart: Regular rate Lungs: Other (normal air entry) Abdomen: Normal bowel sounds, Soft Extremities: No clubbing, No cyanosis Skin: No rashes, No breakdown Labs LABS Laboratory Tests Test 02/05/17 11:06 02/05/17 16:32 02/05/17 20:09 02/06/17 04:50 Glucose (Fingerstick) 251 mg/dL (70-99) 233 mg/dL (70-99) 294 mg/dL (70-99) White Blood Count 1.1 x10^3/uL (4.0-11.0) Red Blood Count 2.50 x10^6/uL (4.30-5.70) Hemoglobin 8.0 g/dL (13.0-17.5) Hematocrit 22.7 % (39.0-53.0) Mean Corpuscular Volume 91 fL (79-100) Mean Corpuscular Hemoglobin 32 pg (25-35) Mean Corpuscular Hemoglobin Concent 35 g/dL (31-37) Red Cell Distribution Width 16.4 % (11.5-14.5) Platelet Count 32 x10^3/uL (140-400) Neutrophils (%) (Auto) 64 % (31-73) Lymphocytes (%) (Auto) 25 % (24-48) Monocytes (%) (Auto) 10 % (0-9) Eosinophils (%) (Auto) 1 % (0-3) Basophils (%) (Auto) 0 % (0-3) Neutrophils # (Auto) 0.7 x10^3uL (1.8-7.7) Lymphocytes # (Auto) 0.3 x10^3/uL (1.0-4.8) Monocytes # (Auto) 0.1 x10^3/uL (0.0-1.1) Eosinophils # (Auto) 0.0 x10^3/uL (0.0-0.7) Basophils # (Auto) 0.0 x10^3/uL (0.0-0.2) Test 02/06/17 08:37 Glucose (Fingerstick) 177 mg/dL (70-99) Review of Systems Review of Systems denies, but remains weak and no inc in cough Assessment and Plan Assessmemt and Plan Problems Medical Problems: (1) Lactic acid acidosis Status: Acute (2) Pancytopenia Status: Acute (3) Sepsis Status: Acute Problems: Comment Review of Relevant I have reviewed the following items dora (where applicable) has been applied. Labs Laboratory Tests Test 02/04/17 10:40 02/04/17 16:21 02/04/17 20:54 02/05/17 04:01 White Blood Count 0.8 x10^3/uL (4.0-11.0) 0.9 x10^3/uL (4.0-11.0) Red Blood Count 2.93 x10^6/uL (4.30-5.70) 2.63 x10^6/uL (4.30-5.70) Hemoglobin 9.3 g/dL (13.0-17.5) 8.3 g/dL (13.0-17.5) Hematocrit 26.3 % (39.0-53.0) 23.8 % (39.0-53.0) Mean Corpuscular Volume 90 fL (79-100) 91 fL (79-100) Mean Corpuscular Hemoglobin 32 pg (25-35) 32 pg (25-35) Mean Corpuscular Hemoglobin Concent 35 g/dL (31-37) 35 g/dL (31-37) Red Cell Distribution Width 16.4 % (11.5-14.5) 17.0 % (11.5-14.5) Platelet Count 36 x10^3/uL (140-400) 34 x10^3/uL (140-400) Neutrophils (%) (Auto) 63 % (31-73) 57 % (31-73) Lymphocytes (%) (Auto) 27 % (24-48) 30 % (24-48) Monocytes (%) (Auto) 10 % (0-9) 11 % (0-9) Eosinophils (%) (Auto) 1 % (0-3) 2 % (0-3) Basophils (%) (Auto) 0 % (0-3) 0 % (0-3) Neutrophils # (Auto) 0.5 x10^3uL (1.8-7.7) 0.5 x10^3uL (1.8-7.7) Lymphocytes # (Auto) 0.2 x10^3/uL (1.0-4.8) 0.3 x10^3/uL (1.0-4.8) Monocytes # (Auto) 0.1 x10^3/uL (0.0-1.1) 0.1 x10^3/uL (0.0-1.1) Eosinophils # (Auto) 0.0 x10^3/uL (0.0-0.7) 0.0 x10^3/uL (0.0-0.7) Basophils # (Auto) 0.0 x10^3/uL (0.0-0.2) 0.0 x10^3/uL (0.0-0.2) Glucose (Fingerstick) 284 mg/dL (70-99) 171 mg/dL (70-99) Sodium Level 136 mmol/L (136-145) Potassium Level 3.4 mmol/L (3.5-5.1) Chloride Level 105 mmol/L (98-107) Carbon Dioxide Level 21 mmol/L (21-32) Anion Gap 10 (6-14) Blood Urea Nitrogen 18 mg/dL (8-26) Creatinine 1.3 mg/dL (0.7-1.3) Estimated GFR (Cockcroft-Gault) 52.1 Glucose Level 214 mg/dL (70-99) Calcium Level 7.8 mg/dL (8.5-10.1) Test 02/05/17 11:06 02/05/17 16:32 02/05/17 20:09 02/06/17 04:50 Glucose (Fingerstick) 251 mg/dL (70-99) 233 mg/dL (70-99) 294 mg/dL (70-99) White Blood Count 1.1 x10^3/uL (4.0-11.0) Red Blood Count 2.50 x10^6/uL (4.30-5.70) Hemoglobin 8.0 g/dL (13.0-17.5) Hematocrit 22.7 % (39.0-53.0) Mean Corpuscular Volume 91 fL (79-100) Mean Corpuscular Hemoglobin 32 pg (25-35) Mean Corpuscular Hemoglobin Concent 35 g/dL (31-37) Red Cell Distribution Width 16.4 % (11.5-14.5) Platelet Count 32 x10^3/uL (140-400) Neutrophils (%) (Auto) 64 % (31-73) Lymphocytes (%) (Auto) 25 % (24-48) Monocytes (%) (Auto) 10 % (0-9) Eosinophils (%) (Auto) 1 % (0-3) Basophils (%) (Auto) 0 % (0-3) Neutrophils # (Auto) 0.7 x10^3uL (1.8-7.7) Lymphocytes # (Auto) 0.3 x10^3/uL (1.0-4.8) Monocytes # (Auto) 0.1 x10^3/uL (0.0-1.1) Eosinophils # (Auto) 0.0 x10^3/uL (0.0-0.7) Basophils # (Auto) 0.0 x10^3/uL (0.0-0.2) Test 02/06/17 08:37 Glucose (Fingerstick) 177 mg/dL (70-99) Laboratory Tests Test 02/05/17 11:06 02/05/17 16:32 02/05/17 20:09 02/06/17 04:50 Glucose (Fingerstick) 251 mg/dL (70-99) 233 mg/dL (70-99) 294 mg/dL (70-99) White Blood Count 1.1 x10^3/uL (4.0-11.0) Red Blood Count 2.50 x10^6/uL (4.30-5.70) Hemoglobin 8.0 g/dL (13.0-17.5) Hematocrit 22.7 % (39.0-53.0) Mean Corpuscular Volume 91 fL (79-100) Mean Corpuscular Hemoglobin 32 pg (25-35) Mean Corpuscular Hemoglobin Concent 35 g/dL (31-37) Red Cell Distribution Width 16.4 % (11.5-14.5) Platelet Count 32 x10^3/uL (140-400) Neutrophils (%) (Auto) 64 % (31-73) Lymphocytes (%) (Auto) 25 % (24-48) Monocytes (%) (Auto) 10 % (0-9) Eosinophils (%) (Auto) 1 % (0-3) Basophils (%) (Auto) 0 % (0-3) Neutrophils # (Auto) 0.7 x10^3uL (1.8-7.7) Lymphocytes # (Auto) 0.3 x10^3/uL (1.0-4.8) Monocytes # (Auto) 0.1 x10^3/uL (0.0-1.1) Eosinophils # (Auto) 0.0 x10^3/uL (0.0-0.7) Basophils # (Auto) 0.0 x10^3/uL (0.0-0.2) Test 02/06/17 08:37 Glucose (Fingerstick) 177 mg/dL (70-99) Microbiology 02/01/17 Blood Culture - Preliminary, Resulted NO GROWTH AFTER 4 DAYS Medications Current Medications Tbo-Filgrastim (Granix) 300 mcg QHS SQ Last administered on 02/02/17 20:28; Start 02/01/17 at 21:00; Stop 02/03/17 at 11:54; Status DC Levofloxacin/ Dextrose 100 ml @ 100 mls/hr 1X ONCE IV Last administered on 20:53; Start 02/01/17 at 20:00; Stop 02/01/17 at 20:59; Status DC Vancomycin HCl (Vanco Per Pharmacy) 1 each PRN DAILY PRN MC SEE COMMENTS Last administered on 02/03/17 20:08; Start 02/01/17 at 20:00; Stop 02/04/17 at 07:43 ; Status DC Piperacillin Sod/ Tazobactam Sod 3.375 gm/Sodium Chloride 50 ml @ 100 mls/hr 1X ONCE IV Last administered on 02/01/17 20:52; Start 02/01/17 at 20:00; Stop 02/01/17 at 20:29; Status DC Ondansetron HCl (Zofran) 4 mg PRN Q8HRS PRN IV NAUSEA/VOMITING; Start 02/01/17 at 20:00; Stop 02/02/17 at 13:09; Status DC Acetaminophen (Tylenol) 650 mg PRN Q4HRS PRN PO FEVER Last administered on 02/01 23:41; Start 02/01/17 at 20:00; Stop 02/02/17 at 13:04; Status DC Vancomycin HCl 1.5 gm/Sodium Chloride 500 ml @ 250 mls/hr 1X ONCE IV Last administered on 02/01/17 20:15; Start 02/01/17 at 20:15; Stop 02/01/17 at 22:14 ; Status DC Diphenhydramine HCl (Benadryl) 25 mg QHS PO Last administered on 02/05/17 20: 12; Start 02/01/17 at 21:00 Insulin Detemir (Levemir) 10 units QHS SQ Last administered on 02/05/17 20:46 ; Start 02/01/17 at 21:00 Gabapentin (Neurontin) 300 mg BID PO Last administered on 02/06/17 09:10; Start 02/01/17 at 21:00 Pantoprazole Sodium (Protonix) 40 mg DAILYAC PO Last administered on 02/06/17 09:09; Start 02/02/17 at 07:30 Acetaminophen (Tylenol) 650 mg PRN Q6HRS PRN PO FEVER Last administered on 02/05 14:57; Start 02/01/17 at 20:15 Ondansetron HCl (Zofran) 4 mg PRN Q6HRS PRN IV NAUSEA/VOMITING; Start 02/01/17 at 20:15 Morphine Sulfate 2 mg PRN Q2HR PRN IV PAIN; Start 02/01/17 at 20:15 Tramadol HCl (Ultram) 50 mg PRN Q6HRS PRN PO PAIN; Start 02/01/17 at 20:15 Hydralazine HCl (Apresoline) 10 mg PRN Q4HRS PRN IVP ELEVATED BP, SEE COMMENTS ; Start 02/01/17 at 20:15 Docusate Sodium (Colace) 100 mg PRN DAILY PRN PO CONSTIPATION; Start 02/01/17 at 20:15 Piperacillin Sod/ Tazobactam Sod (Zosyn Per Pharmacy) 1 each PRN DAILY PRN MC SEE COMMENTS; Start 02/01/17 at 20:15; Stop 02/05/17 at 13:05; Status DC Insulin Aspart (NovoLOG) 0-9 UNITS TIDWMEALS SQ Last administered on 02/06/17 09:20; Start 02/02/17 at 08:00 Dextrose (Dextrose 50%-Water Syringe) 12.5 gm PRN Q15MIN PRN IV SEE COMMENTS; Start 02/01/17 at 20:15 Albuterol Sulfate (Ventolin Neb Soln) 2.5 mg PRN Q4HRS PRN NEB SHORTNESS OF BREATH; Start 02/01/17 at 20:15 Guaifenesin (Robitussin) 200 mg PRN Q4HRS PRN PO COUGH; Start 02/01/17 at 20:15 Magnesium Sulfate/ Dextrose 50 ml @ 25 mls/hr 1X ONCE IV Last administered on 02/01/17 20:53; Start 02/01/17 at 20:15; Stop 02/01/17 at 22:14; Status DC Sodium Chloride 1,000 ml @ 1,000 mls/hr 1X ONCE IV Last administered on 21:30; Start 02/01/17 at 21:30; Stop 02/01/17 at 22:29; Status DC Piperacillin Sod/ Tazobactam Sod 2.25 gm/Sodium Chloride 50 ml @ 100 mls/hr Q6HRS IV Last administered on 02/02/17 12:46; Start 02/02/17 at 00:00; Stop at 13:07; Status DC Vancomycin HCl 1 gm/Sodium Chloride 250 ml @ 250 mls/hr Q24H IV Last administered on 02/03/17 21:29; Start 02/02/17 at 20:00; Stop 02/04/17 at 02:00 ; Status DC Vancomycin HCl 1 each 1X ONCE MC Last administered on 02/03/17 19:30; Start 02/03/17 at 19:30; Stop 02/03/17 at 19:31; Status DC Levofloxacin (Levaquin) 500 mg QODAY PO Last administered on 02/05/17 08:03; Start 02/03/17 at 09:00; Stop 02/05/17 at 13:05; Status DC Piperacillin Sod/ Tazobactam Sod 3.375 gm/Sodium Chloride 50 ml @ 100 mls/hr Q6HRS IV Last administered on 02/05/17 11:42; Start 02/02/17 at 18:00; Stop at 13:05; Status DC Tbo-Filgrastim (Granix) 480 mcg QHS SQ Last administered on 02/05/17 20:19; Start 02/03/17 at 21:00 Vancomycin HCl 750 mg/Sodium Chloride 250 ml @ 250 mls/hr Q12H IV ; Start 02/04 at 09:00; Stop 02/04/17 at 09:00; Status DC Vancomycin HCl 1 each 1X ONCE MC ; Start 02/05/17 at 08:30; Stop 02/05/17 at 08 :30; Status DC Linezolid (Zyvox) 600 mg BID PO Last administered on 02/06/17 09:11; Start at 13:15 Voriconazole (Vfend) 200 mg Q12HR PO Last administered on 02/06/17 09:33; Start 02/05/17 at 13:15 Cefepime HCl 1 gm/ Sodium Chloride 50 ml @ 100 mls/hr Q12HR IV Last administered on 02/06/17 09:10; Start 02/05/17 at 13:15 Active Scripts Active Tamiflu (Oseltamivir Phosphate) 75 Mg Capsule 1 Cap PO BID Reported Zofran Odt (Ondansetron) 8 Mg Tab.rapdis 1 Tab PO PRN PRN Diphenhydramine Hcl 25 Mg Capsule 25 Mg PO QHS Levemir Flextouch (Insulin Detemir) 100 Unit/1 Ml Insuln.pen 10 Unit SQ QHS Prilosec (Omeprazole) 20 Mg Capsule.dr 20 Mg PO DAILY Gabapentin 300 Mg Capsule 300 Mg PO BID Vitals/I & O Vital Sign - Last 24 Hours 02/05/17 02/05/17 02/05/17 02/05/17 11:00 11:25 15:00 19:00 Temp 101.0 102.0 97.8 101.0 102.0 97.8 Pulse 73 89 69 Resp 18 18 18 B/P (MAP) 115/43 (67) 123/48 (73) 123/50 (74) Pulse Ox 94 96 96 92 O2 Delivery Room Air Room Air Room Air Room Air 02/05/17 02/05/17 02/06/17 02/06/17 20:00 23:00 02:38 07:00 Temp 98.2 98.8 98.2 98.8 Pulse 72 69 Resp 18 18 B/P (MAP) 133/59 (83) 103/50 (67) Pulse Ox 96 96 O2 Delivery Room Air Room Air Room Air Room Air Intake and Output 02/05/17 02/05/17 02/06/17 15:00 23:00 07:00 Intake Total 420 ml 1100 ml Balance 420 ml 1100 ml Nutrition Consultation Dietary Evaluation: Recommendations by RD: Increase Calorie Intake, Protein supplementation Comments: boost plus tid yogurt bid Expected Outcomes/Goals: to meet > 75% est nutr needs Malnutrition Findings: Body Fat Depletion (Non Severe: Mild Depletion Weight Status: Appropriate PANKAJ FUENTES MD Feb 06, 2017 10:13
[2017-02-06 11:00] VITALS: BP 110/48
--- NOTE | 2017-02-06 11:49 | PDOC ---
Infectious Disease Note Subjective Subjective Productive cough Dry throat Eating some, but appetite in general remains low Fever Tmax 102.0 ROS ROS GEN: Denies chills, sweats CV: Denies chest pain RESP: Denies shortness of air GI: Denies n/v/d Vital Sign Vital Signs Vital Signs Date Time Temp Pulse Resp B/P (MAP) Pulse Ox O2 Delivery O2 Flow Rate FiO2 02/06/17 07:00 98.8 69 18 103/50 (67) 96 Room Air 98.8 Physical Exam PHYSICAL EXAM GENERAL: Sitting in the chair, joking, NAD HEENT: Oral cavity pink, a few herpetic lesions developing on lips NECK: Supple LUNGS: Clear HEART: S1 and S2 ABD: Soft, NT, BS active EXT: No edema, no cyanosis [employer]: Alert, 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, no focal neurologic deficit SKIN: No rash IV: ok Labs Lab Laboratory Tests Test 02/05/17 16:32 02/05/17 20:09 02/06/17 04:50 02/06/17 08:37 Glucose (Fingerstick) 233 mg/dL (70-99) 294 mg/dL (70-99) 177 mg/dL (70-99) White Blood Count 1.1 x10^3/uL (4.0-11.0) Red Blood Count 2.50 x10^6/uL (4.30-5.70) Hemoglobin 8.0 g/dL (13.0-17.5) Hematocrit 22.7 % (39.0-53.0) Mean Corpuscular Volume 91 fL (79-100) Mean Corpuscular Hemoglobin 32 pg (25-35) Mean Corpuscular Hemoglobin Concent 35 g/dL (31-37) Red Cell Distribution Width 16.4 % (11.5-14.5) Platelet Count 32 x10^3/uL (140-400) Neutrophils (%) (Auto) 64 % (31-73) Lymphocytes (%) (Auto) 25 % (24-48) Monocytes (%) (Auto) 10 % (0-9) Eosinophils (%) (Auto) 1 % (0-3) Basophils (%) (Auto) 0 % (0-3) Neutrophils # (Auto) 0.7 x10^3uL (1.8-7.7) Lymphocytes # (Auto) 0.3 x10^3/uL (1.0-4.8) Monocytes # (Auto) 0.1 x10^3/uL (0.0-1.1) Eosinophils # (Auto) 0.0 x10^3/uL (0.0-0.7) Basophils # (Auto) 0.0 x10^3/uL (0.0-0.2) CT chest without contrast. History: Worsening pneumonia CT scan of the chest was done without contrast. There are gallstones noted in the gallbladder. Visualized portions of liver and spleen are unremarkable. There is a calcified lesion at the upper pole of the right kidney which is seen at the margin of the study. There is a probable cyst at the upper pole the right kidney. There is a trace of pleural effusion on the left with a small right effusion. There is evidence of previous coronary bypass. Mediastinal lymph nodes are within normal limits. There is mild atelectasis or infiltrate in the left lower lobe. There is mild atelectasis or infiltrate along the right diaphragm. There is a consolidating pneumonia in the right upper lobe with air bronchograms. A bronchial obstructing lesion is not evident. Impression: 1. Consolidating infiltrate in the right upper lobe with air bronchograms. 2. No central bronchial occlusive lesion noted. 3. Bilateral effusions trace on the left and small on the right. 4. Atelectasis or mild infiltrates in the lower lobes more on the left than on the right. 5. Prominent calcification and cyst at the upper pole of the right kidney, the right kidney may be abnormal but is just below the imaging. Micro BLOOD CULTURE Preliminary NO GROWTH AFTER 4 DAY Objective Assessment Fever - recurrent. ? ID vs Neupogen. CXR with worse infiltrate may be sec to aspiration and vomit 02/03 Neutropenia - s/p chemo last month but will not take anymore. Receiving Neupogen MDS Aspiration, Bedside swallow: functional but easily distracted. cough CKD H/o MSSA cellulitis Plan Plan of Care Zyvox (02/05), Vfend (02/05) and Cefepime (02/05) feeling better Strep urinary antigen negative f/u sputum culture D/w family Attending Co-Sign Attending Co-Sign The patient was seen and interviewed as well as examined at the bedside. The chart was reviewed. The case was discussed. Agree with the plan of care. SHADY LEROY APRN Feb 06, 2017 11:49 AKIN NEFF MD Feb 06, 2017 17:16
--- NOTE | 2017-02-06 14:44 | PDOC ---
PROGRESS NOTES Subjective Subjective c/c - f/u of MDS Objective Objective Vital Signs Date Time Temp Pulse Resp B/P (MAP) Pulse Ox O2 Delivery O2 Flow Rate FiO2 02/06/17 11:00 98.7 74 18 110/48 (68) 94 Room Air 98.7 Intake and Output 02/06/17 07:00 Intake Total 1520 ml Balance 1520 ml Intake Oral 1520 ml # Voids 4 Physical Exam Heart: Normal S1, Normal S2 General: Alert, Oriented X3 Lungs: Clear to auscultation Neuro: Normal speech Psych/Mental Status: Mental status NL Assessment Assessment Problems Medical Problems: (1) Lactic acid acidosis Status: Acute (2) Pancytopenia Status: Acute (3) Sepsis Status: Acute IMPRESSION AND PLAN: 1. Neutropenic fever. Appreciate ID consultation and evaluation. He is on antibiotics for pneumonia. In view of severe neutropenia, I would also start him on Granix 480 mcg subQ at bedtime (started 02/01/17). I will continue to closely monitor his WBC count. WBC 1.1. 2. Myelodysplastic syndrome. He is off chemotherapy with Vidaza. 3. 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 Hb worse at 8.0, plan to transfuse if Hb drops to below 8. 4. 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 I will continue to monitor this. No signs of bleeding. Plt 32. 5. Pneumonia per CXR 02/01/17. cont abx per ID. I d/w pt's family. Comment Review of Relevant I have reviewed the following items dora (where applicable) has been applied. Labs Laboratory Tests Test 02/04/17 16:21 02/04/17 20:54 02/05/17 04:01 02/05/17 11:06 Glucose (Fingerstick) 284 mg/dL (70-99) 171 mg/dL (70-99) 251 mg/dL (70-99) White Blood Count 0.9 x10^3/uL (4.0-11.0) Red Blood Count 2.63 x10^6/uL (4.30-5.70) Hemoglobin 8.3 g/dL (13.0-17.5) Hematocrit 23.8 % (39.0-53.0) Mean Corpuscular Volume 91 fL (79-100) Mean Corpuscular Hemoglobin 32 pg (25-35) Mean Corpuscular Hemoglobin Concent 35 g/dL (31-37) Red Cell Distribution Width 17.0 % (11.5-14.5) Platelet Count 34 x10^3/uL (140-400) Neutrophils (%) (Auto) 57 % (31-73) Lymphocytes (%) (Auto) 30 % (24-48) Monocytes (%) (Auto) 11 % (0-9) Eosinophils (%) (Auto) 2 % (0-3) Basophils (%) (Auto) 0 % (0-3) Neutrophils # (Auto) 0.5 x10^3uL (1.8-7.7) Lymphocytes # (Auto) 0.3 x10^3/uL (1.0-4.8) Monocytes # (Auto) 0.1 x10^3/uL (0.0-1.1) Eosinophils # (Auto) 0.0 x10^3/uL (0.0-0.7) Basophils # (Auto) 0.0 x10^3/uL (0.0-0.2) Sodium Level 136 mmol/L (136-145) Potassium Level 3.4 mmol/L (3.5-5.1) Chloride Level 105 mmol/L (98-107) Carbon Dioxide Level 21 mmol/L (21-32) Anion Gap 10 (6-14) Blood Urea Nitrogen 18 mg/dL (8-26) Creatinine 1.3 mg/dL (0.7-1.3) Estimated GFR (Cockcroft-Gault) 52.1 Glucose Level 214 mg/dL (70-99) Calcium Level 7.8 mg/dL (8.5-10.1) Test 02/05/17 16:32 02/05/17 20:09 02/06/17 04:50 02/06/17 08:37 Glucose (Fingerstick) 233 mg/dL (70-99) 294 mg/dL (70-99) 177 mg/dL (70-99) White Blood Count 1.1 x10^3/uL (4.0-11.0) Red Blood Count 2.50 x10^6/uL (4.30-5.70) Hemoglobin 8.0 g/dL (13.0-17.5) Hematocrit 22.7 % (39.0-53.0) Mean Corpuscular Volume 91 fL (79-100) Mean Corpuscular Hemoglobin 32 pg (25-35) Mean Corpuscular Hemoglobin Concent 35 g/dL (31-37) Red Cell Distribution Width 16.4 % (11.5-14.5) Platelet Count 32 x10^3/uL (140-400) Neutrophils (%) (Auto) 64 % (31-73) Lymphocytes (%) (Auto) 25 % (24-48) Monocytes (%) (Auto) 10 % (0-9) Eosinophils (%) (Auto) 1 % (0-3) Basophils (%) (Auto) 0 % (0-3) Neutrophils # (Auto) 0.7 x10^3uL (1.8-7.7) Lymphocytes # (Auto) 0.3 x10^3/uL (1.0-4.8) Monocytes # (Auto) 0.1 x10^3/uL (0.0-1.1) Eosinophils # (Auto) 0.0 x10^3/uL (0.0-0.7) Basophils # (Auto) 0.0 x10^3/uL (0.0-0.2) Test 02/06/17 12:28 Glucose (Fingerstick) 202 mg/dL (70-99) Laboratory Tests Test 02/05/17 16:32 02/05/17 20:09 02/06/17 04:50 02/06/17 08:37 Glucose (Fingerstick) 233 mg/dL (70-99) 294 mg/dL (70-99) 177 mg/dL (70-99) White Blood Count 1.1 x10^3/uL (4.0-11.0) Red Blood Count 2.50 x10^6/uL (4.30-5.70) Hemoglobin 8.0 g/dL (13.0-17.5) Hematocrit 22.7 % (39.0-53.0) Mean Corpuscular Volume 91 fL (79-100) Mean Corpuscular Hemoglobin 32 pg (25-35) Mean Corpuscular Hemoglobin Concent 35 g/dL (31-37) Red Cell Distribution Width 16.4 % (11.5-14.5) Platelet Count 32 x10^3/uL (140-400) Neutrophils (%) (Auto) 64 % (31-73) Lymphocytes (%) (Auto) 25 % (24-48) Monocytes (%) (Auto) 10 % (0-9) Eosinophils (%) (Auto) 1 % (0-3) Basophils (%) (Auto) 0 % (0-3) Neutrophils # (Auto) 0.7 x10^3uL (1.8-7.7) Lymphocytes # (Auto) 0.3 x10^3/uL (1.0-4.8) Monocytes # (Auto) 0.1 x10^3/uL (0.0-1.1) Eosinophils # (Auto) 0.0 x10^3/uL (0.0-0.7) Basophils # (Auto) 0.0 x10^3/uL (0.0-0.2) Test 02/06/17 12:28 Glucose (Fingerstick) 202 mg/dL (70-99) Microbiology 02/01/17 Blood Culture - Preliminary, Resulted NO GROWTH AFTER 4 DAYS Medications Current Medications Tbo-Filgrastim (Granix) 300 mcg QHS SQ Last administered on 02/02/17 20:28; Start 02/01/17 at 21:00; Stop 02/03/17 at 11:54; Status DC Levofloxacin/ Dextrose 100 ml @ 100 mls/hr 1X ONCE IV Last administered on 20:53; Start 02/01/17 at 20:00; Stop 02/01/17 at 20:59; Status DC Vancomycin HCl (Vanco Per Pharmacy) 1 each PRN DAILY PRN MC SEE COMMENTS Last administered on 02/03/17 20:08; Start 02/01/17 at 20:00; Stop 02/04/17 at 07:43 ; Status DC Piperacillin Sod/ Tazobactam Sod 3.375 gm/Sodium Chloride 50 ml @ 100 mls/hr 1X ONCE IV Last administered on 02/01/17 20:52; Start 02/01/17 at 20:00; Stop 02/01/17 at 20:29; Status DC Ondansetron HCl (Zofran) 4 mg PRN Q8HRS PRN IV NAUSEA/VOMITING; Start 02/01/17 at 20:00; Stop 02/02/17 at 13:09; Status DC Acetaminophen (Tylenol) 650 mg PRN Q4HRS PRN PO FEVER Last administered on 02/01 23:41; Start 02/01/17 at 20:00; Stop 02/02/17 at 13:04; Status DC Vancomycin HCl 1.5 gm/Sodium Chloride 500 ml @ 250 mls/hr 1X ONCE IV Last administered on 02/01/17 20:15; Start 02/01/17 at 20:15; Stop 02/01/17 at 22:14 ; Status DC Diphenhydramine HCl (Benadryl) 25 mg QHS PO Last administered on 02/05/17 20: 12; Start 02/01/17 at 21:00 Insulin Detemir (Levemir) 10 units QHS SQ Last administered on 02/05/17 20:46 ; Start 02/01/17 at 21:00 Gabapentin (Neurontin) 300 mg BID PO Last administered on 02/06/17 09:10; Start 02/01/17 at 21:00 Pantoprazole Sodium (Protonix) 40 mg DAILYAC PO Last administered on 02/06/17 09:09; Start 02/02/17 at 07:30 Acetaminophen (Tylenol) 650 mg PRN Q6HRS PRN PO FEVER Last administered on 02/05 14:57; Start 02/01/17 at 20:15 Ondansetron HCl (Zofran) 4 mg PRN Q6HRS PRN IV NAUSEA/VOMITING; Start 02/01/17 at 20:15 Morphine Sulfate 2 mg PRN Q2HR PRN IV PAIN; Start 02/01/17 at 20:15 Tramadol HCl (Ultram) 50 mg PRN Q6HRS PRN PO PAIN; Start 02/01/17 at 20:15 Hydralazine HCl (Apresoline) 10 mg PRN Q4HRS PRN IVP ELEVATED BP, SEE COMMENTS ; Start 02/01/17 at 20:15 Docusate Sodium (Colace) 100 mg PRN DAILY PRN PO CONSTIPATION; Start 02/01/17 at 20:15 Piperacillin Sod/ Tazobactam Sod (Zosyn Per Pharmacy) 1 each PRN DAILY PRN MC SEE COMMENTS; Start 02/01/17 at 20:15; Stop 02/05/17 at 13:05; Status DC Insulin Aspart (NovoLOG) 0-9 UNITS TIDWMEALS SQ Last administered on 02/06/17 14:07; Start 02/02/17 at 08:00 Dextrose (Dextrose 50%-Water Syringe) 12.5 gm PRN Q15MIN PRN IV SEE COMMENTS; Start 02/01/17 at 20:15 Albuterol Sulfate (Ventolin Neb Soln) 2.5 mg PRN Q4HRS PRN NEB SHORTNESS OF BREATH; Start 02/01/17 at 20:15 Guaifenesin (Robitussin) 200 mg PRN Q4HRS PRN PO COUGH; Start 02/01/17 at 20:15 Magnesium Sulfate/ Dextrose 50 ml @ 25 mls/hr 1X ONCE IV Last administered on 02/01/17 20:53; Start 02/01/17 at 20:15; Stop 02/01/17 at 22:14; Status DC Sodium Chloride 1,000 ml @ 1,000 mls/hr 1X ONCE IV Last administered on 21:30; Start 02/01/17 at 21:30; Stop 02/01/17 at 22:29; Status DC Piperacillin Sod/ Tazobactam Sod 2.25 gm/Sodium Chloride 50 ml @ 100 mls/hr Q6HRS IV Last administered on 02/02/17 12:46; Start 02/02/17 at 00:00; Stop at 13:07; Status DC Vancomycin HCl 1 gm/Sodium Chloride 250 ml @ 250 mls/hr Q24H IV Last administered on 02/03/17 21:29; Start 02/02/17 at 20:00; Stop 02/04/17 at 02:00 ; Status DC Vancomycin HCl 1 each 1X ONCE MC Last administered on 02/03/17 19:30; Start 02/03/17 at 19:30; Stop 02/03/17 at 19:31; Status DC Levofloxacin (Levaquin) 500 mg QODAY PO Last administered on 02/05/17 08:03; Start 02/03/17 at 09:00; Stop 02/05/17 at 13:05; Status DC Piperacillin Sod/ Tazobactam Sod 3.375 gm/Sodium Chloride 50 ml @ 100 mls/hr Q6HRS IV Last administered on 02/05/17 11:42; Start 02/02/17 at 18:00; Stop at 13:05; Status DC Tbo-Filgrastim (Granix) 480 mcg QHS SQ Last administered on 02/05/17 20:19; Start 02/03/17 at 21:00 Vancomycin HCl 750 mg/Sodium Chloride 250 ml @ 250 mls/hr Q12H IV ; Start 02/04 at 09:00; Stop 02/04/17 at 09:00; Status DC Vancomycin HCl 1 each 1X ONCE MC ; Start 02/05/17 at 08:30; Stop 02/05/17 at 08 :30; Status DC Linezolid (Zyvox) 600 mg BID PO Last administered on 02/06/17 09:11; Start at 13:15 Voriconazole (Vfend) 200 mg Q12HR PO Last administered on 02/06/17 09:33; Start 02/05/17 at 13:15 Cefepime HCl 1 gm/ Sodium Chloride 50 ml @ 100 mls/hr Q12HR IV Last administered on 02/06/17 09:10; Start 02/05/17 at 13:15 Active Scripts Active Tamiflu (Oseltamivir Phosphate) 75 Mg Capsule 1 Cap PO BID Reported Zofran Odt (Ondansetron) 8 Mg Tab.rapdis 1 Tab PO PRN PRN Diphenhydramine Hcl 25 Mg Capsule 25 Mg PO QHS Levemir Flextouch (Insulin Detemir) 100 Unit/1 Ml Insuln.pen 10 Unit SQ QHS Prilosec (Omeprazole) 20 Mg Capsule.dr 20 Mg PO DAILY Gabapentin 300 Mg Capsule 300 Mg PO BID Vitals/I & O Vital Sign - Last 24 Hours 02/05/17 02/05/17 02/05/17 02/05/17 15:00 19:00 20:00 23:00 Temp 102.0 97.8 98.2 102.0 97.8 98.2 Pulse 89 69 72 Resp 18 18 18 B/P (MAP) 123/48 (73) 123/50 (74) 133/59 (83) Pulse Ox 96 92 96 O2 Delivery Room Air Room Air Room Air Room Air 02/06/17 02/06/17 02/06/17 02:38 07:00 11:00 Temp 98.8 98.7 98.8 98.7 Pulse 69 74 Resp 18 18 B/P (MAP) 103/50 (67) 110/48 (68) Pulse Ox 96 94 O2 Delivery Room Air Room Air Room Air Intake and Output 02/05/17 02/05/17 02/06/17 15:00 23:00 07:00 Intake Total 420 ml 1100 ml Balance 420 ml 1100 ml Nutrition Consultation Dietary Evaluation: Recommendations by RD: Increase Calorie Intake, Protein supplementation Comments: boost plus from unit prn yogurt bid Expected Outcomes/Goals: to meet > 75% est nutr needs- met at times, goal ongoing Malnutrition Findings: Body Fat Depletion (Non Severe: Mild Depletion Weight Status: Appropriate LAY BURTON MD Feb 06, 2017 14:44
[2017-02-06 15:00] VITALS: BP 110/48
--- NOTE | 2017-02-06 17:16 | PDOC ---
PULMONARY PROGRESS NOTES Subjective PT WITH NO INCREASE SOA DENIES HEMOPTYSIS Vitals Vital Signs Date Time Temp Pulse Resp B/P (MAP) Pulse Ox O2 Delivery O2 Flow Rate FiO2 02/06/17 11:00 98.7 74 18 110/48 (68) 94 Room Air 98.7 ROS: No Nausea, No Chest Pain, No Abdominal Pain General: Alert Lungs: Clear Cardiovascular: S1, S2 Abdomen: Soft, Non-tender Neuro Exam: Alert Extremities: No Edema Labs Laboratory Tests Test 02/04/17 20:54 02/05/17 04:01 02/05/17 11:06 02/05/17 16:32 Glucose (Fingerstick) 171 mg/dL (70-99) 251 mg/dL (70-99) 233 mg/dL (70-99) White Blood Count 0.9 x10^3/uL (4.0-11.0) Red Blood Count 2.63 x10^6/uL (4.30-5.70) Hemoglobin 8.3 g/dL (13.0-17.5) Hematocrit 23.8 % (39.0-53.0) Mean Corpuscular Volume 91 fL (79-100) Mean Corpuscular Hemoglobin 32 pg (25-35) Mean Corpuscular Hemoglobin Concent 35 g/dL (31-37) Red Cell Distribution Width 17.0 % (11.5-14.5) Platelet Count 34 x10^3/uL (140-400) Neutrophils (%) (Auto) 57 % (31-73) Lymphocytes (%) (Auto) 30 % (24-48) Monocytes (%) (Auto) 11 % (0-9) Eosinophils (%) (Auto) 2 % (0-3) Basophils (%) (Auto) 0 % (0-3) Neutrophils # (Auto) 0.5 x10^3uL (1.8-7.7) Lymphocytes # (Auto) 0.3 x10^3/uL (1.0-4.8) Monocytes # (Auto) 0.1 x10^3/uL (0.0-1.1) Eosinophils # (Auto) 0.0 x10^3/uL (0.0-0.7) Basophils # (Auto) 0.0 x10^3/uL (0.0-0.2) Sodium Level 136 mmol/L (136-145) Potassium Level 3.4 mmol/L (3.5-5.1) Chloride Level 105 mmol/L (98-107) Carbon Dioxide Level 21 mmol/L (21-32) Anion Gap 10 (6-14) Blood Urea Nitrogen 18 mg/dL (8-26) Creatinine 1.3 mg/dL (0.7-1.3) Estimated GFR (Cockcroft-Gault) 52.1 Glucose Level 214 mg/dL (70-99) Calcium Level 7.8 mg/dL (8.5-10.1) Test 02/05/17 20:09 02/06/17 04:50 02/06/17 08:37 02/06/17 12:28 Glucose (Fingerstick) 294 mg/dL (70-99) 177 mg/dL (70-99) 202 mg/dL (70-99) White Blood Count 1.1 x10^3/uL (4.0-11.0) Red Blood Count 2.50 x10^6/uL (4.30-5.70) Hemoglobin 8.0 g/dL (13.0-17.5) Hematocrit 22.7 % (39.0-53.0) Mean Corpuscular Volume 91 fL (79-100) Mean Corpuscular Hemoglobin 32 pg (25-35) Mean Corpuscular Hemoglobin Concent 35 g/dL (31-37) Red Cell Distribution Width 16.4 % (11.5-14.5) Platelet Count 32 x10^3/uL (140-400) Neutrophils (%) (Auto) 64 % (31-73) Lymphocytes (%) (Auto) 25 % (24-48) Monocytes (%) (Auto) 10 % (0-9) Eosinophils (%) (Auto) 1 % (0-3) Basophils (%) (Auto) 0 % (0-3) Neutrophils # (Auto) 0.7 x10^3uL (1.8-7.7) Lymphocytes # (Auto) 0.3 x10^3/uL (1.0-4.8) Monocytes # (Auto) 0.1 x10^3/uL (0.0-1.1) Eosinophils # (Auto) 0.0 x10^3/uL (0.0-0.7) Basophils # (Auto) 0.0 x10^3/uL (0.0-0.2) Test 02/06/17 16:45 Glucose (Fingerstick) 177 mg/dL (70-99) Laboratory Tests Test 02/05/17 20:09 02/06/17 04:50 02/06/17 08:37 02/06/17 12:28 Glucose (Fingerstick) 294 mg/dL (70-99) 177 mg/dL (70-99) 202 mg/dL (70-99) White Blood Count 1.1 x10^3/uL (4.0-11.0) Red Blood Count 2.50 x10^6/uL (4.30-5.70) Hemoglobin 8.0 g/dL (13.0-17.5) Hematocrit 22.7 % (39.0-53.0) Mean Corpuscular Volume 91 fL (79-100) Mean Corpuscular Hemoglobin 32 pg (25-35) Mean Corpuscular Hemoglobin Concent 35 g/dL (31-37) Red Cell Distribution Width 16.4 % (11.5-14.5) Platelet Count 32 x10^3/uL (140-400) Neutrophils (%) (Auto) 64 % (31-73) Lymphocytes (%) (Auto) 25 % (24-48) Monocytes (%) (Auto) 10 % (0-9) Eosinophils (%) (Auto) 1 % (0-3) Basophils (%) (Auto) 0 % (0-3) Neutrophils # (Auto) 0.7 x10^3uL (1.8-7.7) Lymphocytes # (Auto) 0.3 x10^3/uL (1.0-4.8) Monocytes # (Auto) 0.1 x10^3/uL (0.0-1.1) Eosinophils # (Auto) 0.0 x10^3/uL (0.0-0.7) Basophils # (Auto) 0.0 x10^3/uL (0.0-0.2) Test 02/06/17 16:45 Glucose (Fingerstick) 177 mg/dL (70-99) Medications Active Scripts Medications Dose Route/Sig Max Daily Dose Days Date Category Tamiflu (Oseltamivir Phosphate) 75 Mg Capsule 1 Cap PO BID 09/17/16 Rx Zofran Odt (Ondansetron) 8 Mg Tab.rapdis 1 Tab PO PRN PRN 02/25/16 Reported Diphenhydramine Hcl 25 Mg Capsule 25 Mg PO QHS 02/11/16 Reported Levemir Flextouch (Insulin Detemir) 100 Unit/1 Ml Insuln.pen 10 Unit SQ QHS 02/11/16 Reported Prilosec (Omeprazole) 20 Mg Capsule.dr 20 Mg PO DAILY 12/31/13 Reported Gabapentin 300 Mg Capsule 300 Mg PO BID 12/31/13 Reported Comments Impression: 1. Consolidating infiltrate in the right upper lobe with air bronchograms. 2. No central bronchial occlusive lesion noted. 3. Bilateral effusions trace on the left and small on the right. 4. Atelectasis or mild infiltrates in the lower lobes more on the left than on the right. 5. Prominent calcification and cyst at the upper pole of the right kidney, the right kidney may be abnormal but is just below the imaging. Impression . 1. 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 Myelodysplastic syndrome. He is off chemotherapy with Vidaza. 3. 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 4. 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 5. Worsening right upper lobe pneumonia. Clinically less likely alveolar hemorrhage. Cannot exclude aspiration. Need to rule out any postobstructive process Plan . REVIEWED CT NO ENDOBRONCHIAL LESIONS D/W FAMILY NO NEED FOR BRONCH AT THIS TIME REPEAT CT IN 6-8 W[address] 1. Will obtain CT of the chest to better assess for parenchymal infiltrates and also to rule out any postobstructive process 2. Continue present broad-spectrum antibiotics 3. May consider speech evaluation 4. Follow hematology recommendations BALDOMERO HORTON MD Feb 06, 2017 17:16
[2017-02-06 19:00] VITALS: BP 125/56
[2017-02-06] MEDS: ACETAMINOPHEN 325 MG TABLET. PO PRN (22:28)
[2017-02-06] MEDS: diphenhydrAMINE HCL 25 MG CAPSULE PO SCH (22:28)
[2017-02-06] MEDS: TBO-FILGRASTIM 480 MCG/0.8 ML SYRINGE. SQ SCH (22:30)
[2017-02-06] MEDS: INSULIN DETEMIR 300 UNITS/3 ML INSULN.PEN. SQ SCH (22:38)
[2017-02-06 23:00] VITALS: BP 127/58
[2017-02-07] VITALS (14 sets, daily range): BP systolic 99–139; BP diastolic 38–72
[2017-02-07 07:07] LABS: BASO % 0 % (0-3); EOS % 2 % (0-3); HEMATOCRIT 22.1 % (39.0-53.0); HEMOGLOBIN 7.7 g/dL (13.0-17.5); LYMPH # 0.4 x10^3/uL (1.0-4.8); LYMPH % 26 % (24-48); MEAN CORPUSCULAR HEMOGLOBIN 32 pg (25-35); MEAN CORPUSCULAR HGB CONC 35 g/dL (31-37); MEAN CORPUSCULAR VOLUME 92 fL (79-100); MONO % 10 % (0-9); NEUT % 62 % (31-73); PLATELET COUNT 32 x10^3/uL (140-400); RED CELL DISTRIBUTION WIDTH 17.1 % (11.5-14.5)
[2017-02-07 07:17] LABS: WHITE BLOOD COUNT 1.6 x10^3/uL (4.0-11.0)
[2017-02-07] MEDS: PANTOPRAZOLE 40 MG TABLET.DR. PO SCH (08:43)
[2017-02-07] MEDS: GABAPENTIN 300 MG CAPSULE. PO SCH ×2 (08:43→21:37)
[2017-02-07] MEDS: VORICONAZOLE 200 MG PO SCH ×2 (08:43→21:37)
[2017-02-07] MEDS: LINEZOLID 600 MG TABLET PO SCH ×2 (08:43→21:37)
[2017-02-07] MEDS: CEFEPIME HCL 1 GM in IV NORMAL SALINE 50ML 50 ML IV SCH ×2 (08:43→21:43)
[2017-02-07] MEDS: INSULIN ASPART 300 UNITS/3 ML INSULN.PEN SQ SCH ×3 (08:55→17:19)
--- NOTE | 2017-02-07 11:22 | PDOC ---
Infectious Disease Note Subjective Subjective feeling better says ROS ROS GEN: Denies , chills, sweats HEENT: Denies blurred vision, sore throat CV: Denies chest pain RESP: Denies shortness of air, cough GI: Denies n/v/d NEURO: Denies confusion, dizziness MSK: Denies weakness, joint pain/swelling Vital Sign Vital Signs Vital Signs Date Time Temp Pulse Resp B/P (MAP) Pulse Ox O2 Delivery O2 Flow Rate FiO2 02/07/17 10:58 99.5 75 18 128/55 (79) 96 Room Air 99.5 Physical Exam PHYSICAL EXAM GENERAL: NAD, Alert HEENT: PERRL, OC/OP NECK: Supple, no JVD, no LN LUNGS: Clear HEART: S1S2, no gallop, no murmur ABD: Soft, NT, no organomegaly, no rebound EXT: No edema, no cyanosis 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, 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, no focal neurologic deficit SKIN: No rash IV: ok Labs Lab Laboratory Tests Test 02/06/17 12:28 02/06/17 16:45 02/06/17 21:16 02/07/17 06:15 Glucose (Fingerstick) 202 mg/dL (70-99) 177 mg/dL (70-99) 243 mg/dL (70-99) White Blood Count 1.6 x10^3/uL (4.0-11.0) Red Blood Count 2.40 x10^6/uL (4.30-5.70) Hemoglobin 7.7 g/dL (13.0-17.5) Hematocrit 22.1 % (39.0-53.0) Mean Corpuscular Volume 92 fL (79-100) Mean Corpuscular Hemoglobin 32 pg (25-35) Mean Corpuscular Hemoglobin Concent 35 g/dL (31-37) Red Cell Distribution Width 17.1 % (11.5-14.5) Platelet Count 32 x10^3/uL (140-400) Neutrophils (%) (Auto) 62 % (31-73) Lymphocytes (%) (Auto) 26 % (24-48) Monocytes (%) (Auto) 10 % (0-9) Eosinophils (%) (Auto) 2 % (0-3) Basophils (%) (Auto) 0 % (0-3) Neutrophils # (Auto) 1.0 x10^3uL (1.8-7.7) Lymphocytes # (Auto) 0.4 x10^3/uL (1.0-4.8) Monocytes # (Auto) 0.2 x10^3/uL (0.0-1.1) Eosinophils # (Auto) 0.0 x10^3/uL (0.0-0.7) Basophils # (Auto) 0.0 x10^3/uL (0.0-0.2) Test 02/07/17 07:41 02/07/17 10:28 Glucose (Fingerstick) 153 mg/dL (70-99) 233 mg/dL (70-99) Objective Assessment Fever - recurrent. CXR with worse infiltrate may be sec to aspiration and vomit 02/03 Neutropenia - s/p chemo last month but will not take anymore. Receiving Neupogen MDS Aspiration, Bedside swallow: functional but easily distracted. cough CKD H/o MSSA cellulitis Pneumonia Plan Plan of Care Zyvox (02/05), Vfend (02/05) and Cefepime (02/05) feeling better Strep urinary antigen negative f/u sputum culture D/w family HUE HUIZAR MD Feb 07, 2017 11:22
--- NOTE | 2017-02-07 12:29 | PDOC ---
PROGRESS NOTES Subjective Subjective c/c - f/u of MDS Objective Objective Vital Signs Date Time Temp Pulse Resp B/P (MAP) Pulse Ox O2 Delivery O2 Flow Rate FiO2 02/07/17 10:58 99.5 75 18 128/55 (79) 96 Room Air 99.5 Intake and Output 02/07/17 07:00 Intake Total 840 ml Balance 840 ml Intake Oral 840 ml # Voids 6 # Bowel Movements 1 Physical Exam Heart: Normal S1, Normal S2 General: Alert, Oriented X3 Lungs: Clear to auscultation Neuro: Normal speech Psych/Mental Status: Mental status NL Assessment Assessment Problems Medical Problems: (1) Lactic acid acidosis Status: Acute (2) Pancytopenia Status: Acute (3) Sepsis Status: Acute IMPRESSION AND PLAN: 1. Neutropenic fever. Appreciate ID consultation and evaluation. He is on antibiotics for pneumonia. In view of severe neutropenia, I would also start him on Granix 480 mcg subQ at bedtime (started 02/01/17). I will continue to closely monitor his WBC count. WBC 1.6 2. Myelodysplastic syndrome. He is off chemotherapy with Vidaza. 3. 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 Hb worse at 7.7, Ordered 2 u PRBC , plan to monitor Hb and transfuse if Hb drops to below 8 as he gets symptomatic. 4. 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 I will continue to monitor this. No signs of bleeding. Plt 32. 5. Pneumonia per CXR 02/01/17. cont abx per ID. I d/w pt's family. Comment Review of Relevant I have reviewed the following items dora (where applicable) has been applied. Labs Laboratory Tests Test 02/05/17 16:32 02/05/17 20:09 02/06/17 04:50 02/06/17 08:37 Glucose (Fingerstick) 233 mg/dL (70-99) 294 mg/dL (70-99) 177 mg/dL (70-99) White Blood Count 1.1 x10^3/uL (4.0-11.0) Red Blood Count 2.50 x10^6/uL (4.30-5.70) Hemoglobin 8.0 g/dL (13.0-17.5) Hematocrit 22.7 % (39.0-53.0) Mean Corpuscular Volume 91 fL (79-100) Mean Corpuscular Hemoglobin 32 pg (25-35) Mean Corpuscular Hemoglobin Concent 35 g/dL (31-37) Red Cell Distribution Width 16.4 % (11.5-14.5) Platelet Count 32 x10^3/uL (140-400) Neutrophils (%) (Auto) 64 % (31-73) Lymphocytes (%) (Auto) 25 % (24-48) Monocytes (%) (Auto) 10 % (0-9) Eosinophils (%) (Auto) 1 % (0-3) Basophils (%) (Auto) 0 % (0-3) Neutrophils # (Auto) 0.7 x10^3uL (1.8-7.7) Lymphocytes # (Auto) 0.3 x10^3/uL (1.0-4.8) Monocytes # (Auto) 0.1 x10^3/uL (0.0-1.1) Eosinophils # (Auto) 0.0 x10^3/uL (0.0-0.7) Basophils # (Auto) 0.0 x10^3/uL (0.0-0.2) Test 02/06/17 12:28 02/06/17 16:45 02/06/17 21:16 02/07/17 06:15 Glucose (Fingerstick) 202 mg/dL (70-99) 177 mg/dL (70-99) 243 mg/dL (70-99) White Blood Count 1.6 x10^3/uL (4.0-11.0) Red Blood Count 2.40 x10^6/uL (4.30-5.70) Hemoglobin 7.7 g/dL (13.0-17.5) Hematocrit 22.1 % (39.0-53.0) Mean Corpuscular Volume 92 fL (79-100) Mean Corpuscular Hemoglobin 32 pg (25-35) Mean Corpuscular Hemoglobin Concent 35 g/dL (31-37) Red Cell Distribution Width 17.1 % (11.5-14.5) Platelet Count 32 x10^3/uL (140-400) Neutrophils (%) (Auto) 62 % (31-73) Lymphocytes (%) (Auto) 26 % (24-48) Monocytes (%) (Auto) 10 % (0-9) Eosinophils (%) (Auto) 2 % (0-3) Basophils (%) (Auto) 0 % (0-3) Neutrophils # (Auto) 1.0 x10^3uL (1.8-7.7) Lymphocytes # (Auto) 0.4 x10^3/uL (1.0-4.8) Monocytes # (Auto) 0.2 x10^3/uL (0.0-1.1) Eosinophils # (Auto) 0.0 x10^3/uL (0.0-0.7) Basophils # (Auto) 0.0 x10^3/uL (0.0-0.2) Test 02/07/17 07:41 02/07/17 10:28 Glucose (Fingerstick) 153 mg/dL (70-99) 233 mg/dL (70-99) Laboratory Tests Test 02/06/17 12:28 02/06/17 16:45 02/06/17 21:16 02/07/17 06:15 Glucose (Fingerstick) 202 mg/dL (70-99) 177 mg/dL (70-99) 243 mg/dL (70-99) White Blood Count 1.6 x10^3/uL (4.0-11.0) Red Blood Count 2.40 x10^6/uL (4.30-5.70) Hemoglobin 7.7 g/dL (13.0-17.5) Hematocrit 22.1 % (39.0-53.0) Mean Corpuscular Volume 92 fL (79-100) Mean Corpuscular Hemoglobin 32 pg (25-35) Mean Corpuscular Hemoglobin Concent 35 g/dL (31-37) Red Cell Distribution Width 17.1 % (11.5-14.5) Platelet Count 32 x10^3/uL (140-400) Neutrophils (%) (Auto) 62 % (31-73) Lymphocytes (%) (Auto) 26 % (24-48) Monocytes (%) (Auto) 10 % (0-9) Eosinophils (%) (Auto) 2 % (0-3) Basophils (%) (Auto) 0 % (0-3) Neutrophils # (Auto) 1.0 x10^3uL (1.8-7.7) Lymphocytes # (Auto) 0.4 x10^3/uL (1.0-4.8) Monocytes # (Auto) 0.2 x10^3/uL (0.0-1.1) Eosinophils # (Auto) 0.0 x10^3/uL (0.0-0.7) Basophils # (Auto) 0.0 x10^3/uL (0.0-0.2) Test 02/07/17 07:41 02/07/17 10:28 Glucose (Fingerstick) 153 mg/dL (70-99) 233 mg/dL (70-99) Microbiology 02/01/17 Blood Culture - Final, Complete NO GROWTH AFTER 5 DAYS 02/06/17 Gram Stain - Final, Complete Medications Current Medications Tbo-Filgrastim (Granix) 300 mcg QHS SQ Last administered on 02/02/17 20:28; Start 02/01/17 at 21:00; Stop 02/03/17 at 11:54; Status DC Levofloxacin/ Dextrose 100 ml @ 100 mls/hr 1X ONCE IV Last administered on 20:53; Start 02/01/17 at 20:00; Stop 02/01/17 at 20:59; Status DC Vancomycin HCl (Vanco Per Pharmacy) 1 each PRN DAILY PRN MC SEE COMMENTS Last administered on 02/03/17 20:08; Start 02/01/17 at 20:00; Stop 02/04/17 at 07:43 ; Status DC Piperacillin Sod/ Tazobactam Sod 3.375 gm/Sodium Chloride 50 ml @ 100 mls/hr 1X ONCE IV Last administered on 02/01/17 20:52; Start 02/01/17 at 20:00; Stop 02/01/17 at 20:29; Status DC Ondansetron HCl (Zofran) 4 mg PRN Q8HRS PRN IV NAUSEA/VOMITING; Start 02/01/17 at 20:00; Stop 02/02/17 at 13:09; Status DC Acetaminophen (Tylenol) 650 mg PRN Q4HRS PRN PO FEVER Last administered on 02/01 23:41; Start 02/01/17 at 20:00; Stop 02/02/17 at 13:04; Status DC Vancomycin HCl 1.5 gm/Sodium Chloride 500 ml @ 250 mls/hr 1X ONCE IV Last administered on 02/01/17 20:15; Start 02/01/17 at 20:15; Stop 02/01/17 at 22:14 ; Status DC Diphenhydramine HCl (Benadryl) 25 mg QHS PO Last administered on 02/06/17 22: 28; Start 02/01/17 at 21:00 Insulin Detemir (Levemir) 10 units QHS SQ Last administered on 02/06/17 22:38 ; Start 02/01/17 at 21:00 Gabapentin (Neurontin) 300 mg BID PO Last administered on 02/07/17 08:43; Start 02/01/17 at 21:00 Pantoprazole Sodium (Protonix) 40 mg DAILYAC PO Last administered on 02/07/17 08:43; Start 02/02/17 at 07:30 Acetaminophen (Tylenol) 650 mg PRN Q6HRS PRN PO FEVER Last administered on 02/06 22:28; Start 02/01/17 at 20:15 Ondansetron HCl (Zofran) 4 mg PRN Q6HRS PRN IV NAUSEA/VOMITING; Start 02/01/17 at 20:15 Morphine Sulfate 2 mg PRN Q2HR PRN IV PAIN; Start 02/01/17 at 20:15 Tramadol HCl (Ultram) 50 mg PRN Q6HRS PRN PO PAIN; Start 02/01/17 at 20:15 Hydralazine HCl (Apresoline) 10 mg PRN Q4HRS PRN IVP ELEVATED BP, SEE COMMENTS ; Start 02/01/17 at 20:15 Docusate Sodium (Colace) 100 mg PRN DAILY PRN PO CONSTIPATION; Start 02/01/17 at 20:15 Piperacillin Sod/ Tazobactam Sod (Zosyn Per Pharmacy) 1 each PRN DAILY PRN MC SEE COMMENTS; Start 02/01/17 at 20:15; Stop 02/05/17 at 13:05; Status DC Insulin Aspart (NovoLOG) 0-9 UNITS TIDWMEALS SQ Last administered on 02/07/17 12:11; Start 02/02/17 at 08:00 Dextrose (Dextrose 50%-Water Syringe) 12.5 gm PRN Q15MIN PRN IV SEE COMMENTS; Start 02/01/17 at 20:15 Albuterol Sulfate (Ventolin Neb Soln) 2.5 mg PRN Q4HRS PRN NEB SHORTNESS OF BREATH; Start 02/01/17 at 20:15 Guaifenesin (Robitussin) 200 mg PRN Q4HRS PRN PO COUGH; Start 02/01/17 at 20:15 Magnesium Sulfate/ Dextrose 50 ml @ 25 mls/hr 1X ONCE IV Last administered on 02/01/17 20:53; Start 02/01/17 at 20:15; Stop 02/01/17 at 22:14; Status DC Sodium Chloride 1,000 ml @ 1,000 mls/hr 1X ONCE IV Last administered on 21:30; Start 02/01/17 at 21:30; Stop 02/01/17 at 22:29; Status DC Piperacillin Sod/ Tazobactam Sod 2.25 gm/Sodium Chloride 50 ml @ 100 mls/hr Q6HRS IV Last administered on 02/02/17 12:46; Start 02/02/17 at 00:00; Stop at 13:07; Status DC Vancomycin HCl 1 gm/Sodium Chloride 250 ml @ 250 mls/hr Q24H IV Last administered on 02/03/17 21:29; Start 02/02/17 at 20:00; Stop 02/04/17 at 02:00 ; Status DC Vancomycin HCl 1 each 1X ONCE MC Last administered on 02/03/17 19:30; Start 02/03/17 at 19:30; Stop 02/03/17 at 19:31; Status DC Levofloxacin (Levaquin) 500 mg QODAY PO Last administered on 02/05/17 08:03; Start 02/03/17 at 09:00; Stop 02/05/17 at 13:05; Status DC Piperacillin Sod/ Tazobactam Sod 3.375 gm/Sodium Chloride 50 ml @ 100 mls/hr Q6HRS IV Last administered on 02/05/17 11:42; Start 02/02/17 at 18:00; Stop at 13:05; Status DC Tbo-Filgrastim (Granix) 480 mcg QHS SQ Last administered on 02/06/17 22:30; Start 02/03/17 at 21:00 Vancomycin HCl 750 mg/Sodium Chloride 250 ml @ 250 mls/hr Q12H IV ; Start 02/04 at 09:00; Stop 02/04/17 at 09:00; Status DC Vancomycin HCl 1 each 1X ONCE MC ; Start 02/05/17 at 08:30; Stop 02/05/17 at 08 :30; Status DC Linezolid (Zyvox) 600 mg BID PO Last administered on 02/07/17 08:43; Start at 13:15 Voriconazole (Vfend) 200 mg Q12HR PO Last administered on 02/07/17 08:43; Start 02/05/17 at 13:15 Cefepime HCl 1 gm/ Sodium Chloride 50 ml @ 100 mls/hr Q12HR IV Last administered on 02/07/17 08:43; Start 02/05/17 at 13:15 Active Scripts Active Tamiflu (Oseltamivir Phosphate) 75 Mg Capsule 1 Cap PO BID Reported Zofran Odt (Ondansetron) 8 Mg Tab.rapdis 1 Tab PO PRN PRN Diphenhydramine Hcl 25 Mg Capsule 25 Mg PO QHS Levemir Flextouch (Insulin Detemir) 100 Unit/1 Ml Insuln.pen 10 Unit SQ QHS Prilosec (Omeprazole) 20 Mg Capsule.dr 20 Mg PO DAILY Gabapentin 300 Mg Capsule 300 Mg PO BID Vitals/I & O Vital Sign - Last 24 Hours 02/06/17 02/06/17 02/06/17 02/06/17 15:00 19:00 20:00 23:00 Temp 98.7 100.3 99.3 98.7 100.3 99.3 Pulse 74 77 91 Resp 18 17 18 B/P (MAP) 110/48 (68) 125/56 (79) 127/58 (81) Pulse Ox 94 96 93 O2 Delivery Room Air Room Air Room Air Room Air 02/07/17 02/07/17 02/07/17 02/07/17 03:00 07:00 08:00 10:58 Temp 97.6 97.7 99.5 97.6 97.7 99.5 Pulse 62 87 75 Resp 18 18 B/P (MAP) 114/58 (76) 99/46 (63) 128/55 (79) Pulse Ox 93 96 96 O2 Delivery Room Air Room Air Room Air Room Air Intake and Output 02/06/17 02/06/17 02/07/17 15:00 23:00 07:00 Intake Total 840 ml Balance 840 ml Nutrition Consultation Dietary Evaluation: Recommendations by RD: Increase Calorie Intake, Protein supplementation Comments: boost plus from unit prn yogurt bid Expected Outcomes/Goals: to meet > 75% est nutr needs- met at times, goal ongoing Malnutrition Findings: Body Fat Depletion (Non Severe: Mild Depletion Weight Status: Appropriate LAY BURTON MD Feb 07, 2017 12:29
--- NOTE | 2017-02-07 14:21 | PDOC ---
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 HTN controlled DM2 controlled lactate acidosis sepsis with PNA hypomagnesemia ckd3 mild malnutrition mild elevated transaminitis DNR DNI History of Present Illness History of Present Illness hgb 7,.7 WBC highest its ever been 1.7 on granix Had qs to me about if granix they will cont to do at home - told them to defer to heme onc, unlikely will cont home Baseline hgb 8 - and was told to get BT if less than 8 NO fevers so far Plan: Transfuse 1 pRBC CBC again yudi Follow ID and heme onc recs DOing good Likely home 24-48 hrs with family Vitals Vitals Vital Signs Date Time Temp Pulse Resp B/P (MAP) Pulse Ox O2 Delivery O2 Flow Rate FiO2 02/07/17 10:58 99.5 75 18 128/55 (79) 96 Room Air 99.5 Physical Exam General: Alert, Oriented X3 Heart: Normal S1, Normal S2 Lungs: Clear Abdomen: Normal bowel sounds, Soft Extremities: No clubbing, No cyanosis Skin: No rashes, No breakdown Labs LABS Laboratory Tests Test 02/06/17 16:45 02/06/17 21:16 02/07/17 06:15 02/07/17 07:41 Glucose (Fingerstick) 177 mg/dL (70-99) 243 mg/dL (70-99) 153 mg/dL (70-99) White Blood Count 1.6 x10^3/uL (4.0-11.0) Red Blood Count 2.40 x10^6/uL (4.30-5.70) Hemoglobin 7.7 g/dL (13.0-17.5) Hematocrit 22.1 % (39.0-53.0) Mean Corpuscular Volume 92 fL (79-100) Mean Corpuscular Hemoglobin 32 pg (25-35) Mean Corpuscular Hemoglobin Concent 35 g/dL (31-37) Red Cell Distribution Width 17.1 % (11.5-14.5) Platelet Count 32 x10^3/uL (140-400) Neutrophils (%) (Auto) 62 % (31-73) Lymphocytes (%) (Auto) 26 % (24-48) Monocytes (%) (Auto) 10 % (0-9) Eosinophils (%) (Auto) 2 % (0-3) Basophils (%) (Auto) 0 % (0-3) Neutrophils # (Auto) 1.0 x10^3uL (1.8-7.7) Lymphocytes # (Auto) 0.4 x10^3/uL (1.0-4.8) Monocytes # (Auto) 0.2 x10^3/uL (0.0-1.1) Eosinophils # (Auto) 0.0 x10^3/uL (0.0-0.7) Basophils # (Auto) 0.0 x10^3/uL (0.0-0.2) Test 02/07/17 10:28 Glucose (Fingerstick) 233 mg/dL (70-99) Review of Systems Review of Systems no complaints, wants to go home Assessment and Plan Assessmemt and Plan Problems Medical Problems: (1) Lactic acid acidosis Status: Acute (2) Pancytopenia Status: Acute (3) Sepsis Status: Acute Problems: Comment Review of Relevant I have reviewed the following items dora (where applicable) has been applied. Labs Laboratory Tests Test 02/05/17 16:32 02/05/17 20:09 02/06/17 04:50 02/06/17 08:37 Glucose (Fingerstick) 233 mg/dL (70-99) 294 mg/dL (70-99) 177 mg/dL (70-99) White Blood Count 1.1 x10^3/uL (4.0-11.0) Red Blood Count 2.50 x10^6/uL (4.30-5.70) Hemoglobin 8.0 g/dL (13.0-17.5) Hematocrit 22.7 % (39.0-53.0) Mean Corpuscular Volume 91 fL (79-100) Mean Corpuscular Hemoglobin 32 pg (25-35) Mean Corpuscular Hemoglobin Concent 35 g/dL (31-37) Red Cell Distribution Width 16.4 % (11.5-14.5) Platelet Count 32 x10^3/uL (140-400) Neutrophils (%) (Auto) 64 % (31-73) Lymphocytes (%) (Auto) 25 % (24-48) Monocytes (%) (Auto) 10 % (0-9) Eosinophils (%) (Auto) 1 % (0-3) Basophils (%) (Auto) 0 % (0-3) Neutrophils # (Auto) 0.7 x10^3uL (1.8-7.7) Lymphocytes # (Auto) 0.3 x10^3/uL (1.0-4.8) Monocytes # (Auto) 0.1 x10^3/uL (0.0-1.1) Eosinophils # (Auto) 0.0 x10^3/uL (0.0-0.7) Basophils # (Auto) 0.0 x10^3/uL (0.0-0.2) Test 02/06/17 12:28 02/06/17 16:45 02/06/17 21:16 02/07/17 06:15 Glucose (Fingerstick) 202 mg/dL (70-99) 177 mg/dL (70-99) 243 mg/dL (70-99) White Blood Count 1.6 x10^3/uL (4.0-11.0) Red Blood Count 2.40 x10^6/uL (4.30-5.70) Hemoglobin 7.7 g/dL (13.0-17.5) Hematocrit 22.1 % (39.0-53.0) Mean Corpuscular Volume 92 fL (79-100) Mean Corpuscular Hemoglobin 32 pg (25-35) Mean Corpuscular Hemoglobin Concent 35 g/dL (31-37) Red Cell Distribution Width 17.1 % (11.5-14.5) Platelet Count 32 x10^3/uL (140-400) Neutrophils (%) (Auto) 62 % (31-73) Lymphocytes (%) (Auto) 26 % (24-48) Monocytes (%) (Auto) 10 % (0-9) Eosinophils (%) (Auto) 2 % (0-3) Basophils (%) (Auto) 0 % (0-3) Neutrophils # (Auto) 1.0 x10^3uL (1.8-7.7) Lymphocytes # (Auto) 0.4 x10^3/uL (1.0-4.8) Monocytes # (Auto) 0.2 x10^3/uL (0.0-1.1) Eosinophils # (Auto) 0.0 x10^3/uL (0.0-0.7) Basophils # (Auto) 0.0 x10^3/uL (0.0-0.2) Test 02/07/17 07:41 02/07/17 10:28 Glucose (Fingerstick) 153 mg/dL (70-99) 233 mg/dL (70-99) Laboratory Tests Test 02/06/17 16:45 02/06/17 21:16 02/07/17 06:15 02/07/17 07:41 Glucose (Fingerstick) 177 mg/dL (70-99) 243 mg/dL (70-99) 153 mg/dL (70-99) White Blood Count 1.6 x10^3/uL (4.0-11.0) Red Blood Count 2.40 x10^6/uL (4.30-5.70) Hemoglobin 7.7 g/dL (13.0-17.5) Hematocrit 22.1 % (39.0-53.0) Mean Corpuscular Volume 92 fL (79-100) Mean Corpuscular Hemoglobin 32 pg (25-35) Mean Corpuscular Hemoglobin Concent 35 g/dL (31-37) Red Cell Distribution Width 17.1 % (11.5-14.5) Platelet Count 32 x10^3/uL (140-400) Neutrophils (%) (Auto) 62 % (31-73) Lymphocytes (%) (Auto) 26 % (24-48) Monocytes (%) (Auto) 10 % (0-9) Eosinophils (%) (Auto) 2 % (0-3) Basophils (%) (Auto) 0 % (0-3) Neutrophils # (Auto) 1.0 x10^3uL (1.8-7.7) Lymphocytes # (Auto) 0.4 x10^3/uL (1.0-4.8) Monocytes # (Auto) 0.2 x10^3/uL (0.0-1.1) Eosinophils # (Auto) 0.0 x10^3/uL (0.0-0.7) Basophils # (Auto) 0.0 x10^3/uL (0.0-0.2) Test 02/07/17 10:28 Glucose (Fingerstick) 233 mg/dL (70-99) Microbiology 02/01/17 Blood Culture - Final, Complete NO GROWTH AFTER 5 DAYS 02/06/17 Gram Stain - Final, Complete Medications Current Medications Tbo-Filgrastim (Granix) 300 mcg QHS SQ Last administered on 02/02/17 20:28; Start 02/01/17 at 21:00; Stop 02/03/17 at 11:54; Status DC Levofloxacin/ Dextrose 100 ml @ 100 mls/hr 1X ONCE IV Last administered on 20:53; Start 02/01/17 at 20:00; Stop 02/01/17 at 20:59; Status DC Vancomycin HCl (Vanco Per Pharmacy) 1 each PRN DAILY PRN MC SEE COMMENTS Last administered on 02/03/17 20:08; Start 02/01/17 at 20:00; Stop 02/04/17 at 07:43 ; Status DC Piperacillin Sod/ Tazobactam Sod 3.375 gm/Sodium Chloride 50 ml @ 100 mls/hr 1X ONCE IV Last administered on 02/01/17 20:52; Start 02/01/17 at 20:00; Stop 02/01/17 at 20:29; Status DC Ondansetron HCl (Zofran) 4 mg PRN Q8HRS PRN IV NAUSEA/VOMITING; Start 02/01/17 at 20:00; Stop 02/02/17 at 13:09; Status DC Acetaminophen (Tylenol) 650 mg PRN Q4HRS PRN PO FEVER Last administered on 02/01 23:41; Start 02/01/17 at 20:00; Stop 02/02/17 at 13:04; Status DC Vancomycin HCl 1.5 gm/Sodium Chloride 500 ml @ 250 mls/hr 1X ONCE IV Last administered on 02/01/17 20:15; Start 02/01/17 at 20:15; Stop 02/01/17 at 22:14 ; Status DC Diphenhydramine HCl (Benadryl) 25 mg QHS PO Last administered on 02/06/17 22: 28; Start 02/01/17 at 21:00 Insulin Detemir (Levemir) 10 units QHS SQ Last administered on 02/06/17 22:38 ; Start 02/01/17 at 21:00 Gabapentin (Neurontin) 300 mg BID PO Last administered on 02/07/17 08:43; Start 02/01/17 at 21:00 Pantoprazole Sodium (Protonix) 40 mg DAILYAC PO Last administered on 02/07/17 08:43; Start 02/02/17 at 07:30 Acetaminophen (Tylenol) 650 mg PRN Q6HRS PRN PO FEVER Last administered on 02/06 22:28; Start 02/01/17 at 20:15 Ondansetron HCl (Zofran) 4 mg PRN Q6HRS PRN IV NAUSEA/VOMITING; Start 02/01/17 at 20:15 Morphine Sulfate 2 mg PRN Q2HR PRN IV PAIN; Start 02/01/17 at 20:15 Tramadol HCl (Ultram) 50 mg PRN Q6HRS PRN PO PAIN; Start 02/01/17 at 20:15 Hydralazine HCl (Apresoline) 10 mg PRN Q4HRS PRN IVP ELEVATED BP, SEE COMMENTS ; Start 02/01/17 at 20:15 Docusate Sodium (Colace) 100 mg PRN DAILY PRN PO CONSTIPATION; Start 02/01/17 at 20:15 Piperacillin Sod/ Tazobactam Sod (Zosyn Per Pharmacy) 1 each PRN DAILY PRN MC SEE COMMENTS; Start 02/01/17 at 20:15; Stop 02/05/17 at 13:05; Status DC Insulin Aspart (NovoLOG) 0-9 UNITS TIDWMEALS SQ Last administered on 02/07/17 12:11; Start 02/02/17 at 08:00 Dextrose (Dextrose 50%-Water Syringe) 12.5 gm PRN Q15MIN PRN IV SEE COMMENTS; Start 02/01/17 at 20:15 Albuterol Sulfate (Ventolin Neb Soln) 2.5 mg PRN Q4HRS PRN NEB SHORTNESS OF BREATH; Start 02/01/17 at 20:15 Guaifenesin (Robitussin) 200 mg PRN Q4HRS PRN PO COUGH; Start 02/01/17 at 20:15 Magnesium Sulfate/ Dextrose 50 ml @ 25 mls/hr 1X ONCE IV Last administered on 02/01/17 20:53; Start 02/01/17 at 20:15; Stop 02/01/17 at 22:14; Status DC Sodium Chloride 1,000 ml @ 1,000 mls/hr 1X ONCE IV Last administered on 21:30; Start 02/01/17 at 21:30; Stop 02/01/17 at 22:29; Status DC Piperacillin Sod/ Tazobactam Sod 2.25 gm/Sodium Chloride 50 ml @ 100 mls/hr Q6HRS IV Last administered on 02/02/17 12:46; Start 02/02/17 at 00:00; Stop at 13:07; Status DC Vancomycin HCl 1 gm/Sodium Chloride 250 ml @ 250 mls/hr Q24H IV Last administered on 02/03/17 21:29; Start 02/02/17 at 20:00; Stop 02/04/17 at 02:00 ; Status DC Vancomycin HCl 1 each 1X ONCE MC Last administered on 02/03/17 19:30; Start 02/03/17 at 19:30; Stop 02/03/17 at 19:31; Status DC Levofloxacin (Levaquin) 500 mg QODAY PO Last administered on 02/05/17 08:03; Start 02/03/17 at 09:00; Stop 02/05/17 at 13:05; Status DC Piperacillin Sod/ Tazobactam Sod 3.375 gm/Sodium Chloride 50 ml @ 100 mls/hr Q6HRS IV Last administered on 02/05/17 11:42; Start 02/02/17 at 18:00; Stop at 13:05; Status DC Tbo-Filgrastim (Granix) 480 mcg QHS SQ Last administered on 02/06/17 22:30; Start 02/03/17 at 21:00 Vancomycin HCl 750 mg/Sodium Chloride 250 ml @ 250 mls/hr Q12H IV ; Start 02/04 at 09:00; Stop 02/04/17 at 09:00; Status DC Vancomycin HCl 1 each 1X ONCE MC ; Start 02/05/17 at 08:30; Stop 02/05/17 at 08 :30; Status DC Linezolid (Zyvox) 600 mg BID PO Last administered on 02/07/17 08:43; Start at 13:15 Voriconazole (Vfend) 200 mg Q12HR PO Last administered on 02/07/17 08:43; Start 02/05/17 at 13:15 Cefepime HCl 1 gm/ Sodium Chloride 50 ml @ 100 mls/hr Q12HR IV Last administered on 02/07/17 08:43; Start 02/05/17 at 13:15 Active Scripts Active Tamiflu (Oseltamivir Phosphate) 75 Mg Capsule 1 Cap PO BID Reported Zofran Odt (Ondansetron) 8 Mg Tab.rapdis 1 Tab PO PRN PRN Diphenhydramine Hcl 25 Mg Capsule 25 Mg PO QHS Levemir Flextouch (Insulin Detemir) 100 Unit/1 Ml Insuln.pen 10 Unit SQ QHS Prilosec (Omeprazole) 20 Mg Capsule.dr 20 Mg PO DAILY Gabapentin 300 Mg Capsule 300 Mg PO BID Vitals/I & O Vital Sign - Last 24 Hours 02/06/17 02/06/17 02/06/17 02/06/17 15:00 19:00 20:00 23:00 Temp 98.7 100.3 99.3 98.7 100.3 99.3 Pulse 74 77 91 Resp 18 18 B/P (MAP) 110/48 (68) 125/56 (79) 127/58 (81) Pulse Ox 94 96 93 O2 Delivery Room Air Room Air Room Air Room Air 02/07/17 02/07/17 02/07/17 02/07/17 03:00 07:00 08:00 10:58 Temp 97.6 97.7 99.5 97.6 97.7 99.5 Pulse 62 87 75 Resp B/P (MAP) 114/58 (76) 99/46 (63) 128/55 (79) Pulse Ox 93 96 96 O2 Delivery Room Air Room Air Room Air Room Air Intake and Output 02/06/17 02/06/17 02/07/17 15:00 23:00 07:00 Intake Total 840 ml Balance 840 ml Nutrition Consultation Dietary Evaluation: Recommendations by RD: Increase Calorie Intake, Protein supplementation Comments: boost plus from unit prn yogurt bid Expected Outcomes/Goals: to meet > 75% est nutr needs- met at times, goal ongoing Malnutrition Findings: Body Fat Depletion (Non Severe: Mild Depletion Weight Status: Appropriate PANKAJ FUENTES Y Feb 07, 2017 14:21
[2017-02-07] MEDS ORDERED: diphenhydrAMINE 50 MG/ML VIAL IVP ONE (14:45)
[2017-02-07] MEDS: ACETAMINOPHEN 325 MG TABLET. PO PRN (14:50)
--- NOTE | 2017-02-07 18:34 | PDOC ---
PULMONARY PROGRESS NOTES Subjective PT WITH NO INCREASE SOA DENIES HEMOPTYSIS Vitals Vital Signs Date Time Temp Pulse Resp B/P (MAP) Pulse Ox O2 Delivery O2 Flow Rate FiO2 02/07/17 18:17 98.1 72 14 117/72 98.1 02/07/17 16:31 Room Air 02/07/17 14:49 95 ROS: No Nausea, No Chest Pain, No Abdominal Pain General: Alert Lungs: Clear Cardiovascular: S1, S2 Abdomen: Soft, Non-tender Neuro Exam: Alert Extremities: No Edema Labs Laboratory Tests Test 02/05/17 20:09 02/06/17 04:50 02/06/17 08:37 02/06/17 12:28 Glucose (Fingerstick) 294 mg/dL (70-99) 177 mg/dL (70-99) 202 mg/dL (70-99) White Blood Count 1.1 x10^3/uL (4.0-11.0) Red Blood Count 2.50 x10^6/uL (4.30-5.70) Hemoglobin 8.0 g/dL (13.0-17.5) Hematocrit 22.7 % (39.0-53.0) Mean Corpuscular Volume 91 fL (79-100) Mean Corpuscular Hemoglobin 32 pg (25-35) Mean Corpuscular Hemoglobin Concent 35 g/dL (31-37) Red Cell Distribution Width 16.4 % (11.5-14.5) Platelet Count 32 x10^3/uL (140-400) Neutrophils (%) (Auto) 64 % (31-73) Lymphocytes (%) (Auto) 25 % (24-48) Monocytes (%) (Auto) 10 % (0-9) Eosinophils (%) (Auto) 1 % (0-3) Basophils (%) (Auto) 0 % (0-3) Neutrophils # (Auto) 0.7 x10^3uL (1.8-7.7) Lymphocytes # (Auto) 0.3 x10^3/uL (1.0-4.8) Monocytes # (Auto) 0.1 x10^3/uL (0.0-1.1) Eosinophils # (Auto) 0.0 x10^3/uL (0.0-0.7) Basophils # (Auto) 0.0 x10^3/uL (0.0-0.2) Test 02/06/17 16:45 02/06/17 21:16 02/07/17 06:15 02/07/17 07:41 Glucose (Fingerstick) 177 mg/dL (70-99) 243 mg/dL (70-99) 153 mg/dL (70-99) White Blood Count 1.6 x10^3/uL (4.0-11.0) Red Blood Count 2.40 x10^6/uL (4.30-5.70) Hemoglobin 7.7 g/dL (13.0-17.5) Hematocrit 22.1 % (39.0-53.0) Mean Corpuscular Volume 92 fL (79-100) Mean Corpuscular Hemoglobin 32 pg (25-35) Mean Corpuscular Hemoglobin Concent 35 g/dL (31-37) Red Cell Distribution Width 17.1 % (11.5-14.5) Platelet Count 32 x10^3/uL (140-400) Neutrophils (%) (Auto) 62 % (31-73) Lymphocytes (%) (Auto) 26 % (24-48) Monocytes (%) (Auto) 10 % (0-9) Eosinophils (%) (Auto) 2 % (0-3) Basophils (%) (Auto) 0 % (0-3) Neutrophils # (Auto) 1.0 x10^3uL (1.8-7.7) Lymphocytes # (Auto) 0.4 x10^3/uL (1.0-4.8) Monocytes # (Auto) 0.2 x10^3/uL (0.0-1.1) Eosinophils # (Auto) 0.0 x10^3/uL (0.0-0.7) Basophils # (Auto) 0.0 x10^3/uL (0.0-0.2) Test 02/07/17 10:28 02/07/17 16:20 Glucose (Fingerstick) 233 mg/dL (70-99) 166 mg/dL (70-99) Laboratory Tests Test 02/06/17 21:16 02/07/17 06:15 02/07/17 07:41 02/07/17 10:28 Glucose (Fingerstick) 243 mg/dL (70-99) 153 mg/dL (70-99) 233 mg/dL (70-99) White Blood Count 1.6 x10^3/uL (4.0-11.0) Red Blood Count 2.40 x10^6/uL (4.30-5.70) Hemoglobin 7.7 g/dL (13.0-17.5) Hematocrit 22.1 % (39.0-53.0) Mean Corpuscular Volume 92 fL (79-100) Mean Corpuscular Hemoglobin 32 pg (25-35) Mean Corpuscular Hemoglobin Concent 35 g/dL (31-37) Red Cell Distribution Width 17.1 % (11.5-14.5) Platelet Count 32 x10^3/uL (140-400) Neutrophils (%) (Auto) 62 % (31-73) Lymphocytes (%) (Auto) 26 % (24-48) Monocytes (%) (Auto) 10 % (0-9) Eosinophils (%) (Auto) 2 % (0-3) Basophils (%) (Auto) 0 % (0-3) Neutrophils # (Auto) 1.0 x10^3uL (1.8-7.7) Lymphocytes # (Auto) 0.4 x10^3/uL (1.0-4.8) Monocytes # (Auto) 0.2 x10^3/uL (0.0-1.1) Eosinophils # (Auto) 0.0 x10^3/uL (0.0-0.7) Basophils # (Auto) 0.0 x10^3/uL (0.0-0.2) Test 02/07/17 16:20 Glucose (Fingerstick) 166 mg/dL (70-99) Medications Active Scripts Medications Dose Route/Sig Max Daily Dose Days Date Category Tamiflu (Oseltamivir Phosphate) 75 Mg Capsule 1 Cap PO BID 09/17/16 Rx Zofran Odt (Ondansetron) 8 Mg Tab.rapdis 1 Tab PO PRN PRN 02/25/16 Reported Diphenhydramine Hcl 25 Mg Capsule 25 Mg PO QHS 02/11/16 Reported Levemir Flextouch (Insulin Detemir) 100 Unit/1 Ml Insuln.pen 10 Unit SQ QHS 02/11/16 Reported Prilosec (Omeprazole) 20 Mg Capsule.dr 20 Mg PO DAILY 12/31/13 Reported Gabapentin 300 Mg Capsule 300 Mg PO BID 12/31/13 Reported Comments Impression: 1. Consolidating infiltrate in the right upper lobe with air bronchograms. 2. No central bronchial occlusive lesion noted. 3. Bilateral effusions trace on the left and small on the right. 4. Atelectasis or mild infiltrates in the lower lobes more on the left than on the right. 5. Prominent calcification and cyst at the upper pole of the right kidney, the right kidney may be abnormal but is just below the imaging. Impression . 1. 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 Myelodysplastic syndrome. He is off chemotherapy with Vidaza. 3. 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 4. 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 5. Worsening right upper lobe pneumonia. Clinically less likely alveolar hemorrhage. Cannot exclude aspiration. Need to rule out any postobstructive process Plan . REVIEWED CT NO ENDOBRONCHIAL LESIONS D/W FAMILY NO NEED FOR BRONCH AT THIS TIME REPEAT CT IN 6-8 WEEKS CONTINUE ANTIBX PER ID TRANSFUSE NEEDED BALDOMERO HORTON MD Feb 07, 2017 18:34
[2017-02-07] MEDS: diphenhydrAMINE HCL 25 MG CAPSULE PO SCH (21:37)
[2017-02-07] MEDS: INSULIN DETEMIR 300 UNITS/3 ML INSULN.PEN. SQ SCH (21:42)
[2017-02-07] MEDS: TBO-FILGRASTIM 480 MCG/0.8 ML SYRINGE. SQ SCH (21:42)
[2017-02-08 05:23] LABS: BASO % 0 % (0-3); EOS % 1 % (0-3); HEMATOCRIT 28.4 % (39.0-53.0); HEMOGLOBIN 10.2 g/dL (13.0-17.5); LYMPH # 0.4 x10^3/uL (1.0-4.8); LYMPH % 24 % (24-48); MEAN CORPUSCULAR HEMOGLOBIN 31 pg (25-35); MEAN CORPUSCULAR HGB CONC 36 g/dL (31-37); MEAN CORPUSCULAR VOLUME 87 fL (79-100); MONO % 10 % (0-9); NEUT % 65 % (31-73); PLATELET COUNT 33 x10^3/uL (140-400); RED BLOOD COUNT 3.25 x10^6/uL (4.30-5.70); RED CELL DISTRIBUTION WIDTH 15.8 % (11.5-14.5)
[2017-02-08 05:26] LABS: CALCIUM 8.4 mg/dL (8.5-10.1); CREATININE 1.3 mg/dL (0.7-1.3); GFR 52.1; POTASSIUM 3.4 mmol/L (3.5-5.1)
[2017-02-08 05:47] LABS: WHITE BLOOD COUNT 1.8 x10^3/uL (4.0-11.0)
[2017-02-08 07:00] VITALS: BP 138/90
--- NOTE | 2017-02-08 08:49 | PDOC ---
Subjective: Subjective: Onc f/u- MDS No changes breathing better No complaints Objective: Vital Signs: Vital Signs Date Time Temp Pulse Resp B/P (MAP) Pulse Ox O2 Delivery O2 Flow Rate FiO2 02/07/17 23:00 97.9 68 20 133/54 (80) 92 Room Air 97.9 Physical Exam: Heart: Regular rate Extremities: No edema General: Alert, Oriented X3, No acute distress Lungs: Other (no resp distress) Psych/Mental Status: Mental status NL Labs/Imaging: CBC reviewed- hgb 10.2, plt 33, WBC 1.8 Assessment/Plan A/P: 1. MDS refractory to vidaza, on supportive care since 06/08. 2. Anemia due to MDS. Transfuse for hgb < 8. Hgb > 10 today. 3. Thrombocytopenia due to MDS. Transfuse for plt < 10. stable. 4. Neutropenia. On granix weekly, will try to change to MWF. Please give dose early today if DC'ed. 5. Pneumonia, on abx. Clinically improving. Pt will f/u weekly as planned, next on 02/09. Ok to DC from heme standpoint. CAMMIE MELGAR DO Feb 08, 2017 08:49
[2017-02-08] MEDS: LINEZOLID 600 MG TABLET PO SCH (09:31)
[2017-02-08] MEDS: VORICONAZOLE 200 MG PO SCH (09:31)
[2017-02-08] MEDS: GABAPENTIN 300 MG CAPSULE. PO SCH ×2 (09:31→20:55)
[2017-02-08] MEDS: PANTOPRAZOLE 40 MG TABLET.DR. PO SCH (09:31)
[2017-02-08] MEDS: CEFEPIME HCL 1 GM in IV NORMAL SALINE 50ML 50 ML IV SCH ×2 (09:31→20:55)
[2017-02-08] MEDS: INSULIN ASPART 300 UNITS/3 ML INSULN.PEN SQ SCH ×3 (09:33→17:17)
--- NOTE | 2017-02-08 10:53 | PDOC ---
Infectious Disease Note Subjective Subjective feeling better says ROS ROS GEN: Denies fevers, chills, sweats HEENT: Denies blurred vision, sore throat CV: Denies chest pain RESP: Denies shortness of air, cough GI: Denies n/v/d NEURO: Denies confusion, dizziness MSK: Denies weakness, joint pain/swelling Vital Sign Vital Signs Vital Signs Date Time Temp Pulse Resp B/P (MAP) Pulse Ox O2 Delivery O2 Flow Rate FiO2 02/08/17 08:00 Room Air 02/08/17 07:00 99.7 84 20 138/90 (106) 95 99.7 Physical Exam PHYSICAL EXAM GENERAL: NAD, Alert HEENT: PERRL, OC/OP NECK: Supple, no JVD, no LN LUNGS: Clear HEART: S1S2, no gallop, no murmur ABD: Soft, NT, no organomegaly, no rebound EXT: No edema, no cyanosis EDGE POLISHER: Alert, 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, no focal neurologic deficit SKIN: No rash IV: ok Labs Lab Laboratory Tests Test 02/07/17 16:20 02/07/17 20:40 02/08/17 04:40 02/08/17 07:13 Glucose (Fingerstick) 166 mg/dL (70-99) 256 mg/dL (70-99) 160 mg/dL (70-99) White Blood Count 1.8 x10^3/uL (4.0-11.0) Red Blood Count 3.25 x10^6/uL (4.30-5.70) Hemoglobin 10.2 g/dL (13.0-17.5) Hematocrit 28.4 % (39.0-53.0) Mean Corpuscular Volume 87 fL (79-100) Mean Corpuscular Hemoglobin 31 pg (25-35) Mean Corpuscular Hemoglobin Concent 36 g/dL (31-37) Red Cell Distribution Width 15.8 % (11.5-14.5) Platelet Count 33 x10^3/uL (140-400) Neutrophils (%) (Auto) 65 % (31-73) Lymphocytes (%) (Auto) 24 % (24-48) Monocytes (%) (Auto) 10 % (0-9) Eosinophils (%) (Auto) 1 % (0-3) Basophils (%) (Auto) 0 % (0-3) Neutrophils # (Auto) 1.2 x10^3uL (1.8-7.7) Lymphocytes # (Auto) 0.4 x10^3/uL (1.0-4.8) Monocytes # (Auto) 0.2 x10^3/uL (0.0-1.1) Eosinophils # (Auto) 0.0 x10^3/uL (0.0-0.7) Basophils # (Auto) 0.0 x10^3/uL (0.0-0.2) Sodium Level 136 mmol/L (136-145) Potassium Level 3.4 mmol/L (3.5-5.1) Chloride Level 103 mmol/L (98-107) Carbon Dioxide Level 21 mmol/L (21-32) Anion Gap 12 (6-14) Blood Urea Nitrogen 19 mg/dL (8-26) Creatinine 1.3 mg/dL (0.7-1.3) Estimated GFR (Cockcroft-Gault) 52.1 Glucose Level 185 mg/dL (70-99) Calcium Level 8.4 mg/dL (8.5-10.1) Micro culture neg so far Objective Assessment Fever - recurrent. CXR with infiltrate may be sec to aspiration Neutropenia - s/p chemo last month but will not take anymore. Receiving Neupogen MDS Aspiration, Bedside swallow: functional but easily distracted. cough CKD H/o MSSA cellulitis Pneumonia Plan Plan of Care Zyvox (02/05), Vfend (02/05) and Cefepime (02/05) feeling better,,, start scaling down, will d/c zyvox and vfend Strep urinary antigen negative f/u sputum culture D/w family HUE HUIZAR MD Feb 08, 2017 10:53
[2017-02-08 10:59] VITALS: BP 114/66
[2017-02-08 15:02] VITALS: BP 138/68
--- NOTE | 2017-02-08 16:34 | PDOC ---
PULMONARY PROGRESS NOTES Subjective PT WITH NO INCREASE SOA DENIES HEMOPTYSIS Vitals Vital Signs Date Time Temp Pulse Resp B/P (MAP) Pulse Ox O2 Delivery O2 Flow Rate FiO2 02/08/17 15:02 97.5 60 20 138/68 (91) 93 Room Air 97.5 ROS: No Nausea, No Chest Pain, No Abdominal Pain General: Alert Lungs: Clear Cardiovascular: S1, S2 Abdomen: Soft, Non-tender Neuro Exam: Alert Extremities: No Edema Labs Laboratory Tests Test 02/06/17 16:45 02/06/17 21:16 02/07/17 06:15 02/07/17 07:41 Glucose (Fingerstick) 177 mg/dL (70-99) 243 mg/dL (70-99) 153 mg/dL (70-99) White Blood Count 1.6 x10^3/uL (4.0-11.0) Red Blood Count 2.40 x10^6/uL (4.30-5.70) Hemoglobin 7.7 g/dL (13.0-17.5) Hematocrit 22.1 % (39.0-53.0) Mean Corpuscular Volume 92 fL (79-100) Mean Corpuscular Hemoglobin 32 pg (25-35) Mean Corpuscular Hemoglobin Concent 35 g/dL (31-37) Red Cell Distribution Width 17.1 % (11.5-14.5) Platelet Count 32 x10^3/uL (140-400) Neutrophils (%) (Auto) 62 % (31-73) Lymphocytes (%) (Auto) 26 % (24-48) Monocytes (%) (Auto) 10 % (0-9) Eosinophils (%) (Auto) 2 % (0-3) Basophils (%) (Auto) 0 % (0-3) Neutrophils # (Auto) 1.0 x10^3uL (1.8-7.7) Lymphocytes # (Auto) 0.4 x10^3/uL (1.0-4.8) Monocytes # (Auto) 0.2 x10^3/uL (0.0-1.1) Eosinophils # (Auto) 0.0 x10^3/uL (0.0-0.7) Basophils # (Auto) 0.0 x10^3/uL (0.0-0.2) Test 02/07/17 10:28 02/07/17 16:20 02/07/17 20:40 02/08/17 04:40 Glucose (Fingerstick) 233 mg/dL (70-99) 166 mg/dL (70-99) 256 mg/dL (70-99) White Blood Count 1.8 x10^3/uL (4.0-11.0) Red Blood Count 3.25 x10^6/uL (4.30-5.70) Hemoglobin 10.2 g/dL (13.0-17.5) Hematocrit 28.4 % (39.0-53.0) Mean Corpuscular Volume 87 fL (79-100) Mean Corpuscular Hemoglobin 31 pg (25-35) Mean Corpuscular Hemoglobin Concent 36 g/dL (31-37) Red Cell Distribution Width 15.8 % (11.5-14.5) Platelet Count 33 x10^3/uL (140-400) Neutrophils (%) (Auto) 65 % (31-73) Lymphocytes (%) (Auto) 24 % (24-48) Monocytes (%) (Auto) 10 % (0-9) Eosinophils (%) (Auto) 1 % (0-3) Basophils (%) (Auto) 0 % (0-3) Neutrophils # (Auto) 1.2 x10^3uL (1.8-7.7) Lymphocytes # (Auto) 0.4 x10^3/uL (1.0-4.8) Monocytes # (Auto) 0.2 x10^3/uL (0.0-1.1) Eosinophils # (Auto) 0.0 x10^3/uL (0.0-0.7) Basophils # (Auto) 0.0 x10^3/uL (0.0-0.2) Sodium Level 136 mmol/L (136-145) Potassium Level 3.4 mmol/L (3.5-5.1) Chloride Level 103 mmol/L (98-107) Carbon Dioxide Level 21 mmol/L (21-32) Anion Gap 12 (6-14) Blood Urea Nitrogen 19 mg/dL (8-26) Creatinine 1.3 mg/dL (0.7-1.3) Estimated GFR (Cockcroft-Gault) 52.1 Glucose Level 185 mg/dL (70-99) Calcium Level 8.4 mg/dL (8.5-10.1) Test 02/08/17 07:13 02/08/17 11:40 Glucose (Fingerstick) 160 mg/dL (70-99) 136 mg/dL (70-99) Laboratory Tests Test 02/07/17 20:40 02/08/17 04:40 02/08/17 07:13 02/08/17 11:40 Glucose (Fingerstick) 256 mg/dL (70-99) 160 mg/dL (70-99) 136 mg/dL (70-99) White Blood Count 1.8 x10^3/uL (4.0-11.0) Red Blood Count 3.25 x10^6/uL (4.30-5.70) Hemoglobin 10.2 g/dL (13.0-17.5) Hematocrit 28.4 % (39.0-53.0) Mean Corpuscular Volume 87 fL (79-100) Mean Corpuscular Hemoglobin 31 pg (25-35) Mean Corpuscular Hemoglobin Concent 36 g/dL (31-37) Red Cell Distribution Width 15.8 % (11.5-14.5) Platelet Count 33 x10^3/uL (140-400) Neutrophils (%) (Auto) 65 % (31-73) Lymphocytes (%) (Auto) 24 % (24-48) Monocytes (%) (Auto) 10 % (0-9) Eosinophils (%) (Auto) 1 % (0-3) Basophils (%) (Auto) 0 % (0-3) Neutrophils # (Auto) 1.2 x10^3uL (1.8-7.7) Lymphocytes # (Auto) 0.4 x10^3/uL (1.0-4.8) Monocytes # (Auto) 0.2 x10^3/uL (0.0-1.1) Eosinophils # (Auto) 0.0 x10^3/uL (0.0-0.7) Basophils # (Auto) 0.0 x10^3/uL (0.0-0.2) Sodium Level 136 mmol/L (136-145) Potassium Level 3.4 mmol/L (3.5-5.1) Chloride Level 103 mmol/L (98-107) Carbon Dioxide Level 21 mmol/L (21-32) Anion Gap 12 (6-14) Blood Urea Nitrogen 19 mg/dL (8-26) Creatinine 1.3 mg/dL (0.7-1.3) Estimated GFR (Cockcroft-Gault) 52.1 Glucose Level 185 mg/dL (70-99) Calcium Level 8.4 mg/dL (8.5-10.1) Medications Active Scripts Medications Dose Route/Sig Max Daily Dose Days Date Category Tamiflu (Oseltamivir Phosphate) 75 Mg Capsule 1 Cap PO BID 09/17/16 Rx Zofran Odt (Ondansetron) 8 Mg Tab.rapdis 1 Tab PO PRN PRN 02/25/16 Reported Diphenhydramine Hcl 25 Mg Capsule 25 Mg PO QHS 02/11/16 Reported Levemir Flextouch (Insulin Detemir) 100 Unit/1 Ml Insuln.pen 10 Unit SQ QHS 02/11/16 Reported Prilosec (Omeprazole) 20 Mg Capsule.dr 20 Mg PO DAILY 12/31/13 Reported Gabapentin 300 Mg Capsule 300 Mg PO BID 12/31/13 Reported Comments Impression: 1. Consolidating infiltrate in the right upper lobe with air bronchograms. 2. No central bronchial occlusive lesion noted. 3. Bilateral effusions trace on the left and small on the right. 4. Atelectasis or mild infiltrates in the lower lobes more on the left than on the right. 5. Prominent calcification and cyst at the upper pole of the right kidney, the right kidney may be abnormal but is just below the imaging. Impression . 1. 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 Myelodysplastic syndrome. He is off chemotherapy with Vidaza. 3. 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 4. 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 5. Worsening right upper lobe pneumonia. Clinically less likely alveolar hemorrhage. Cannot exclude aspiration. Need to rule out any postobstructive process Plan . SPOKE WITH ID TO DECIDE ON DURATION OF ANTIBX REVIEWED CT NO ENDOBRONCHIAL LESIONS NO NEED FOR BRONCH AT THIS TIME REPEAT CT IN 6-8 WEEKS BALDOMERO HORTON MD Feb 08, 2017 16:34
--- NOTE | 2017-02-08 18:37 | PDOC ---
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 HTN controlled DM2 controlled lactate acidosis sepsis with PNA hypomagnesemia ckd3 mild malnutrition mild elevated transaminitis DNR DNI History of Present Illness History of Present Illness hgb 7,.7 WBC highest its ever been 1.7 on granix Had qs to me about if granix they will cont to do at home - told them to defer to heme onc, unlikely will cont home Baseline hgb 8 - and was told to get BT if less than 8 NO fevers so far Plan: Transfuse 1 pRBC CBC again yudi Follow ID and heme onc recs DOing good Likely home 24-48 hrs with family Vitals Vitals Vital Signs Date Time Temp Pulse Resp B/P (MAP) Pulse Ox O2 Delivery O2 Flow Rate FiO2 02/08/17 15:02 97.5 60 20 138/68 (91) 93 Room Air 97.5 Physical Exam General: Alert, Oriented X3, No acute distress Heart: Regular rate Lungs: Clear Abdomen: Normal bowel sounds, Soft Extremities: No edema Skin: No rashes, No breakdown Labs LABS Laboratory Tests Test 02/07/17 20:40 02/08/17 04:40 02/08/17 07:13 02/08/17 11:40 Glucose (Fingerstick) 256 mg/dL (70-99) 160 mg/dL (70-99) 136 mg/dL (70-99) White Blood Count 1.8 x10^3/uL (4.0-11.0) Red Blood Count 3.25 x10^6/uL (4.30-5.70) Hemoglobin 10.2 g/dL (13.0-17.5) Hematocrit 28.4 % (39.0-53.0) Mean Corpuscular Volume 87 fL (79-100) Mean Corpuscular Hemoglobin 31 pg (25-35) Mean Corpuscular Hemoglobin Concent 36 g/dL (31-37) Red Cell Distribution Width 15.8 % (11.5-14.5) Platelet Count 33 x10^3/uL (140-400) Neutrophils (%) (Auto) 65 % (31-73) Lymphocytes (%) (Auto) 24 % (24-48) Monocytes (%) (Auto) 10 % (0-9) Eosinophils (%) (Auto) 1 % (0-3) Basophils (%) (Auto) 0 % (0-3) Neutrophils # (Auto) 1.2 x10^3uL (1.8-7.7) Lymphocytes # (Auto) 0.4 x10^3/uL (1.0-4.8) Monocytes # (Auto) 0.2 x10^3/uL (0.0-1.1) Eosinophils # (Auto) 0.0 x10^3/uL (0.0-0.7) Basophils # (Auto) 0.0 x10^3/uL (0.0-0.2) Sodium Level 136 mmol/L (136-145) Potassium Level 3.4 mmol/L (3.5-5.1) Chloride Level 103 mmol/L (98-107) Carbon Dioxide Level 21 mmol/L (21-32) Anion Gap 12 (6-14) Blood Urea Nitrogen 19 mg/dL (8-26) Creatinine 1.3 mg/dL (0.7-1.3) Estimated GFR (Cockcroft-Gault) 52.1 Glucose Level 185 mg/dL (70-99) Calcium Level 8.4 mg/dL (8.5-10.1) Test 02/08/17 16:43 Glucose (Fingerstick) 233 mg/dL (70-99) Review of Systems Review of Systems co weakness co hunger Assessment and Plan Assessmemt and Plan Problems Medical Problems: (1) Lactic acid acidosis Status: Acute (2) Pancytopenia Status: Acute (3) Sepsis Status: Acute neutropenia fever Pneumonia in an immunocompromised with trace pleural effusions Atelectasis Thrombocytopenia (34) 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 Labs Laboratory Tests Test 02/06/17 21:16 02/07/17 06:15 02/07/17 07:41 02/07/17 10:28 Glucose (Fingerstick) 243 mg/dL (70-99) 153 mg/dL (70-99) 233 mg/dL (70-99) White Blood Count 1.6 x10^3/uL (4.0-11.0) Red Blood Count 2.40 x10^6/uL (4.30-5.70) Hemoglobin 7.7 g/dL (13.0-17.5) Hematocrit 22.1 % (39.0-53.0) Mean Corpuscular Volume 92 fL (79-100) Mean Corpuscular Hemoglobin 32 pg (25-35) Mean Corpuscular Hemoglobin Concent 35 g/dL (31-37) Red Cell Distribution Width 17.1 % (11.5-14.5) Platelet Count 32 x10^3/uL (140-400) Neutrophils (%) (Auto) 62 % (31-73) Lymphocytes (%) (Auto) 26 % (24-48) Monocytes (%) (Auto) 10 % (0-9) Eosinophils (%) (Auto) 2 % (0-3) Basophils (%) (Auto) 0 % (0-3) Neutrophils # (Auto) 1.0 x10^3uL (1.8-7.7) Lymphocytes # (Auto) 0.4 x10^3/uL (1.0-4.8) Monocytes # (Auto) 0.2 x10^3/uL (0.0-1.1) Eosinophils # (Auto) 0.0 x10^3/uL (0.0-0.7) Basophils # (Auto) 0.0 x10^3/uL (0.0-0.2) Test 02/07/17 16:20 02/07/17 20:40 02/08/17 04:40 02/08/17 07:13 Glucose (Fingerstick) 166 mg/dL (70-99) 256 mg/dL (70-99) 160 mg/dL (70-99) White Blood Count 1.8 x10^3/uL (4.0-11.0) Red Blood Count 3.25 x10^6/uL (4.30-5.70) Hemoglobin 10.2 g/dL (13.0-17.5) Hematocrit 28.4 % (39.0-53.0) Mean Corpuscular Volume 87 fL (79-100) Mean Corpuscular Hemoglobin 31 pg (25-35) Mean Corpuscular Hemoglobin Concent 36 g/dL (31-37) Red Cell Distribution Width 15.8 % (11.5-14.5) Platelet Count 33 x10^3/uL (140-400) Neutrophils (%) (Auto) 65 % (31-73) Lymphocytes (%) (Auto) 24 % (24-48) Monocytes (%) (Auto) 10 % (0-9) Eosinophils (%) (Auto) 1 % (0-3) Basophils (%) (Auto) 0 % (0-3) Neutrophils # (Auto) 1.2 x10^3uL (1.8-7.7) Lymphocytes # (Auto) 0.4 x10^3/uL (1.0-4.8) Monocytes # (Auto) 0.2 x10^3/uL (0.0-1.1) Eosinophils # (Auto) 0.0 x10^3/uL (0.0-0.7) Basophils # (Auto) 0.0 x10^3/uL (0.0-0.2) Sodium Level 136 mmol/L (136-145) Potassium Level 3.4 mmol/L (3.5-5.1) Chloride Level 103 mmol/L (98-107) Carbon Dioxide Level 21 mmol/L (21-32) Anion Gap 12 (6-14) Blood Urea Nitrogen 19 mg/dL (8-26) Creatinine 1.3 mg/dL (0.7-1.3) Estimated GFR (Cockcroft-Gault) 52.1 Glucose Level 185 mg/dL (70-99) Calcium Level 8.4 mg/dL (8.5-10.1) Test 02/08/17 11:40 02/08/17 16:43 Glucose (Fingerstick) 136 mg/dL (70-99) 233 mg/dL (70-99) Laboratory Tests Test 02/07/17 20:40 02/08/17 04:40 02/08/17 07:13 02/08/17 11:40 Glucose (Fingerstick) 256 mg/dL (70-99) 160 mg/dL (70-99) 136 mg/dL (70-99) White Blood Count 1.8 x10^3/uL (4.0-11.0) Red Blood Count 3.25 x10^6/uL (4.30-5.70) Hemoglobin 10.2 g/dL (13.0-17.5) Hematocrit 28.4 % (39.0-53.0) Mean Corpuscular Volume 87 fL (79-100) Mean Corpuscular Hemoglobin 31 pg (25-35) Mean Corpuscular Hemoglobin Concent 36 g/dL (31-37) Red Cell Distribution Width 15.8 % (11.5-14.5) Platelet Count 33 x10^3/uL (140-400) Neutrophils (%) (Auto) 65 % (31-73) Lymphocytes (%) (Auto) 24 % (24-48) Monocytes (%) (Auto) 10 % (0-9) Eosinophils (%) (Auto) 1 % (0-3) Basophils (%) (Auto) 0 % (0-3) Neutrophils # (Auto) 1.2 x10^3uL (1.8-7.7) Lymphocytes # (Auto) 0.4 x10^3/uL (1.0-4.8) Monocytes # (Auto) 0.2 x10^3/uL (0.0-1.1) Eosinophils # (Auto) 0.0 x10^3/uL (0.0-0.7) Basophils # (Auto) 0.0 x10^3/uL (0.0-0.2) Sodium Level 136 mmol/L (136-145) Potassium Level 3.4 mmol/L (3.5-5.1) Chloride Level 103 mmol/L (98-107) Carbon Dioxide Level 21 mmol/L (21-32) Anion Gap 12 (6-14) Blood Urea Nitrogen 19 mg/dL (8-26) Creatinine 1.3 mg/dL (0.7-1.3) Estimated GFR (Cockcroft-Gault) 52.1 Glucose Level 185 mg/dL (70-99) Calcium Level 8.4 mg/dL (8.5-10.1) Test 02/08/17 16:43 Glucose (Fingerstick) 233 mg/dL (70-99) Microbiology 02/01/17 Blood Culture - Final, Complete NO GROWTH AFTER 5 DAYS 02/08/17 Gram Stain - Final, Complete Medications Current Medications Tbo-Filgrastim (Granix) 300 mcg QHS SQ Last administered on 02/02/17 20:28; Start 02/01/17 at 21:00; Stop 02/03/17 at 11:54; Status DC Levofloxacin/ Dextrose 100 ml @ 100 mls/hr 1X ONCE IV Last administered on 20:53; Start 02/01/17 at 20:00; Stop 02/01/17 at 20:59; Status DC Vancomycin HCl (Vanco Per Pharmacy) 1 each PRN DAILY PRN MC SEE COMMENTS Last administered on 02/03/17 20:08; Start 02/01/17 at 20:00; Stop 02/04/17 at 07:43 ; Status DC Piperacillin Sod/ Tazobactam Sod 3.375 gm/Sodium Chloride 50 ml @ 100 mls/hr 1X ONCE IV Last administered on 02/01/17 20:52; Start 02/01/17 at 20:00; Stop 02/01/17 at 20:29; Status DC Ondansetron HCl (Zofran) 4 mg PRN Q8HRS PRN IV NAUSEA/VOMITING; Start 02/01/17 at 20:00; Stop 02/02/17 at 13:09; Status DC Acetaminophen (Tylenol) 650 mg PRN Q4HRS PRN PO FEVER Last administered on 02/01 23:41; Start 02/01/17 at 20:00; Stop 02/02/17 at 13:04; Status DC Vancomycin HCl 1.5 gm/Sodium Chloride 500 ml @ 250 mls/hr 1X ONCE IV Last administered on 02/01/17 20:15; Start 02/01/17 at 20:15; Stop 02/01/17 at 22:14 ; Status DC Diphenhydramine HCl (Benadryl) 25 mg QHS PO Last administered on 02/07/17 21: 37; Start 02/01/17 at 21:00 Insulin Detemir (Levemir) 10 units QHS SQ Last administered on 02/07/17 21:42 ; Start 02/01/17 at 21:00 Gabapentin (Neurontin) 300 mg BID PO Last administered on 02/08/17 09:31; Start 02/01/17 at 21:00 Pantoprazole Sodium (Protonix) 40 mg DAILYAC PO Last administered on 02/08/17 09:31; Start 02/02/17 at 07:30 Acetaminophen (Tylenol) 650 mg PRN Q6HRS PRN PO FEVER Last administered on 02/07 14:50; Start 02/01/17 at 20:15 Ondansetron HCl (Zofran) 4 mg PRN Q6HRS PRN IV NAUSEA/VOMITING; Start 02/01/17 at 20:15 Morphine Sulfate 2 mg PRN Q2HR PRN IV PAIN; Start 02/01/17 at 20:15 Tramadol HCl (Ultram) 50 mg PRN Q6HRS PRN PO PAIN; Start 02/01/17 at 20:15 Hydralazine HCl (Apresoline) 10 mg PRN Q4HRS PRN IVP ELEVATED BP, SEE COMMENTS ; Start 02/01/17 at 20:15 Docusate Sodium (Colace) 100 mg PRN DAILY PRN PO CONSTIPATION; Start 02/01/17 at 20:15 Piperacillin Sod/ Tazobactam Sod (Zosyn Per Pharmacy) 1 each PRN DAILY PRN MC SEE COMMENTS; Start 02/01/17 at 20:15; Stop 02/05/17 at 13:05; Status DC Insulin Aspart (NovoLOG) 0-9 UNITS TIDWMEALS SQ Last administered on 02/08/17 17:17; Start 02/02/17 at 08:00 Dextrose (Dextrose 50%-Water Syringe) 12.5 gm PRN Q15MIN PRN IV SEE COMMENTS; Start 02/01/17 at 20:15 Albuterol Sulfate (Ventolin Neb Soln) 2.5 mg PRN Q4HRS PRN NEB SHORTNESS OF BREATH; Start 02/01/17 at 20:15 Guaifenesin (Robitussin) 200 mg PRN Q4HRS PRN PO COUGH; Start 02/01/17 at 20:15 Magnesium Sulfate/ Dextrose 50 ml @ 25 mls/hr 1X ONCE IV Last administered on 02/01/17 20:53; Start 02/01/17 at 20:15; Stop 02/01/17 at 22:14; Status DC Sodium Chloride 1,000 ml @ 1,000 mls/hr 1X ONCE IV Last administered on 21:30; Start 02/01/17 at 21:30; Stop 02/01/17 at 22:29; Status DC Piperacillin Sod/ Tazobactam Sod 2.25 gm/Sodium Chloride 50 ml @ 100 mls/hr Q6HRS IV Last administered on 02/02/17 12:46; Start 02/02/17 at 00:00; Stop at 13:07; Status DC Vancomycin HCl 1 gm/Sodium Chloride 250 ml @ 250 mls/hr Q24H IV Last administered on 02/03/17 21:29; Start 02/02/17 at 20:00; Stop 02/04/17 at 02:00 ; Status DC Vancomycin HCl 1 each 1X ONCE MC Last administered on 02/03/17 19:30; Start 02/03/17 at 19:30; Stop 02/03/17 at 19:31; Status DC Levofloxacin (Levaquin) 500 mg QODAY PO Last administered on 02/05/17 08:03; Start 02/03/17 at 09:00; Stop 02/05/17 at 13:05; Status DC Piperacillin Sod/ Tazobactam Sod 3.375 gm/Sodium Chloride 50 ml @ 100 mls/hr Q6HRS IV Last administered on 02/05/17 11:42; Start 02/02/17 at 18:00; Stop at 13:05; Status DC Tbo-Filgrastim (Granix) 480 mcg QHS SQ Last administered on 02/07/17 21:42; Start 02/03/17 at 21:00 Vancomycin HCl 750 mg/Sodium Chloride 250 ml @ 250 mls/hr Q12H IV ; Start 02/04 at 09:00; Stop 02/04/17 at 09:00; Status DC Vancomycin HCl 1 each 1X ONCE MC ; Start 02/05/17 at 08:30; Stop 02/05/17 at 08 :30; Status DC Linezolid (Zyvox) 600 mg BID PO Last administered on 02/08/17 09:31; Start at 13:15; Stop 02/08/17 at 10:54; Status DC Voriconazole (Vfend) 200 mg Q12HR PO Last administered on 02/08/17 09:31; Start 02/05/17 at 13:15; Stop 02/08/17 at 10:54; Status DC Cefepime HCl 1 gm/ Sodium Chloride 50 ml @ 100 mls/hr Q12HR IV Last administered on 02/08/17t 09:31; Start 02/05/17 at 13:15 Diphenhydramine HCl (Benadryl) 25 mg 1X ONCE IVP Last administered on t 14:50; Start 02/07/17 at 14:45; Stop 02/07/17 at 14:47; Status DC Active Scripts Active Tamiflu (Oseltamivir Phosphate) 75 Mg Capsule 1 Cap PO BID Reported Zofran Odt (Ondansetron) 8 Mg Tab.rapdis 1 Tab PO PRN PRN Diphenhydramine Hcl 25 Mg Capsule 25 Mg PO QHS Levemir Flextouch (Insulin Detemir) 100 Unit/1 Ml Insuln.pen 10 Unit SQ QHS Prilosec (Omeprazole) 20 Mg Capsule.dr 20 Mg PO DAILY Gabapentin 300 Mg Capsule 300 Mg PO BID Vitals/I & O Vital Sign - Last 24 Hours 02/07/17 02/07/17 02/07/17 02/07/17 19:00 19:24 20:00 23:00 Temp 98.1 98.2 97.9 98.1 98.2 97.9 Pulse 59 65 68 Resp 20 20 20 B/P (MAP) 118/44 (68) 121/38 133/54 (80) Pulse Ox 93 92 O2 Delivery Room Air Room Air Room Air 02/08/17 02/08/17 02/08/17 02/08/17 07:00 08:00 10:59 15:02 Temp 99.7 98.1 97.5 99.7 98.1 97.5 Pulse 84 76 60 Resp 20 18 20 B/P (MAP) 138/90 (106) 114/66 (82) 138/68 (91) Pulse Ox 95 95 93 O2 Delivery Room Air Room Air Room Air Room Air Intake and Output 02/07/17 02/07/17 02/08/17 15:00 23:00 07:00 Intake Total 600 ml 1350 ml Balance 600 ml 1350 ml Nutrition Consultation Dietary Evaluation: Recommendations by RD: Increase Calorie Intake, Protein supplementation Comments: boost plus from unit prn yogurt bid Expected Outcomes/Goals: to meet > 75% est nutr needs- met at times, goal ongoing Malnutrition Findings: Body Fat Depletion (Non Severe: Mild Depletion Weight Status: Appropriate ANNE MARROQUIN III DO Feb 08, 2017 18:36
[2017-02-08 19:00] VITALS: BP 125/58
[2017-02-08] MEDS: diphenhydrAMINE HCL 25 MG CAPSULE PO SCH (20:55)
[2017-02-08] MEDS: TBO-FILGRASTIM 480 MCG/0.8 ML SYRINGE. SQ SCH (20:59)
[2017-02-08] MEDS: INSULIN DETEMIR 300 UNITS/3 ML INSULN.PEN. SQ SCH (21:21)
[2017-02-08 23:00] VITALS: BP 137/64
[2017-02-09 03:00] VITALS: BP 144/60
[2017-02-09] MEDS: PANTOPRAZOLE 40 MG TABLET.DR. PO SCH (06:29)
[2017-02-09 07:15] VITALS: BP 141/55
[2017-02-09 08:12] LABS: BASO % 1 % (0-3); EOS % 1 % (0-3); HEMATOCRIT 29.5 % (39.0-53.0); HEMOGLOBIN 10.2 g/dL (13.0-17.5); LYMPH # 0.4 x10^3/uL (1.0-4.8); LYMPH % 25 % (24-48); MEAN CORPUSCULAR HEMOGLOBIN 31 pg (25-35); MEAN CORPUSCULAR HGB CONC 34 g/dL (31-37); MEAN CORPUSCULAR VOLUME 90 fL (79-100); MONO % 12 % (0-9); NEUT % 60 % (31-73); PLATELET COUNT 31 x10^3/uL (140-400); RED BLOOD COUNT 3.29 x10^6/uL (4.30-5.70); RED CELL DISTRIBUTION WIDTH 16.3 % (11.5-14.5)
[2017-02-09 08:18] LABS: WHITE BLOOD COUNT 1.7 x10^3/uL (4.0-11.0)
[2017-02-09 08:22] LABS: CALCIUM 7.7 mg/dL (8.5-10.1); CREATININE 1.1 mg/dL (0.7-1.3); GFR 63.2; POTASSIUM 3.4 mmol/L (3.5-5.1)
[2017-02-09] MEDS: INSULIN ASPART 300 UNITS/3 ML INSULN.PEN SQ SCH ×2 (08:30→12:17)
[2017-02-09] MEDS: GABAPENTIN 300 MG CAPSULE. PO SCH (08:34)
[2017-02-09] MEDS: CEFEPIME HCL 1 GM in IV NORMAL SALINE 50ML 50 ML IV SCH (08:34)
--- NOTE | 2017-02-09 09:31 | PDOC ---
Subjective: Subjective: Onc f/u- MDS Pt feeling well, more energy, walking without walker No SOB Objective: Vital Signs: Vital Signs Date Time Temp Pulse Resp B/P (MAP) Pulse Ox O2 Delivery O2 Flow Rate FiO2 02/09/17 07:15 98.8 73 20 141/55 (83) 94 Room Air 98.8 Physical Exam: Heart: Regular rate Extremities: No edema General: Alert, Oriented X3, Cooperative, No acute distress Lungs: Other (no resp distress) Psych/Mental Status: Mental status NL, Mood NL Labs/Imaging: CBC stable from yesterday Assessment/Plan A/P: 1. 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 2. Anemia due to MDS. Transfuse for hgb < 8. Hgb > 10 now. 3. Thrombocytopenia due to MDS. Transfuse for plt < 10. Stable. 4. Neutropenia. Changing as outpt to granix MWF. Was able to arrange granix to be given at home by his family MWF. Pt will f/u weekly as planned, next on 02/16. Ok to DC from heme standpoint D/W family.. CAMMIE MELGAR DO Feb 09, 2017 09:31
--- NOTE | 2017-02-09 10:33 | PDOC ---
Infectious Disease Note Subjective Subjective feeling good, wants to go home, no fever, no cough, no sob ROS ROS GEN: Denies fevers, chills, sweats HEENT: Denies blurred vision, sore throat CV: Denies chest pain RESP: Denies shortness of air, cough GI: Denies n/v/d NEURO: Denies confusion, dizziness MSK: Denies weakness, joint pain/swelling Vital Sign Vital Signs Vital Signs Date Time Temp Pulse Resp B/P (MAP) Pulse Ox O2 Delivery O2 Flow Rate FiO2 02/09/17 07:15 98.8 73 20 141/55 (83) 94 Room Air 98.8 Physical Exam PHYSICAL EXAM GENERAL: NAD, Alert HEENT: PERRL, OC/OP NECK: Supple, no JVD, no LN LUNGS: Clear HEART: S1S2, no gallop, no murmur ABD: Soft, NT, no organomegaly, no rebound EXT: No edema, no cyanosis [employer]: Alert, 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, no focal neurologic deficit SKIN: No rash IV: ok Labs Lab Laboratory Tests Test 02/08/17 11:40 02/08/17 16:43 02/08/17 20:54 02/09/17 07:19 Glucose (Fingerstick) 136 mg/dL (70-99) 233 mg/dL (70-99) 177 mg/dL (70-99) 122 mg/dL (70-99) Test 02/09/17 08:00 White Blood Count 1.7 x10^3/uL (4.0-11.0) Red Blood Count 3.29 x10^6/uL (4.30-5.70) Hemoglobin 10.2 g/dL (13.0-17.5) Hematocrit 29.5 % (39.0-53.0) Mean Corpuscular Volume 90 fL (79-100) Mean Corpuscular Hemoglobin 31 pg (25-35) Mean Corpuscular Hemoglobin Concent 34 g/dL (31-37) Red Cell Distribution Width 16.3 % (11.5-14.5) Platelet Count 31 x10^3/uL (140-400) Neutrophils (%) (Auto) 60 % (31-73) Lymphocytes (%) (Auto) 25 % (24-48) Monocytes (%) (Auto) 12 % (0-9) Eosinophils (%) (Auto) 1 % (0-3) Basophils (%) (Auto) 1 % (0-3) Neutrophils # (Auto) 1.0 x10^3uL (1.8-7.7) Lymphocytes # (Auto) 0.4 x10^3/uL (1.0-4.8) Monocytes # (Auto) 0.2 x10^3/uL (0.0-1.1) Eosinophils # (Auto) 0.0 x10^3/uL (0.0-0.7) Basophils # (Auto) 0.0 x10^3/uL (0.0-0.2) Sodium Level 140 mmol/L (136-145) Potassium Level 3.4 mmol/L (3.5-5.1) Chloride Level 106 mmol/L (98-107) Carbon Dioxide Level 25 mmol/L (21-32) Anion Gap 9 (6-14) Blood Urea Nitrogen 17 mg/dL (8-26) Creatinine 1.1 mg/dL (0.7-1.3) Estimated GFR (Cockcroft-Gault) 63.2 Glucose Level 123 mg/dL (70-99) Calcium Level 7.7 mg/dL (8.5-10.1) Micro culture neg so far Objective Assessment Fever - recurrent. CXR with infiltrate may be sec to aspiration Neutropenia - s/p chemo last month but will not take anymore. Receiving Neupogen MDS Aspiration, Bedside swallow: functional but easily distracted. cough CKD H/o MSSA cellulitis Pneumonia Plan Plan of Care will change antibiotics to po levaquin empiric, for 7 days d/c home ok D/w daughter about MDS and infection risk, if fever then return, f/u x ray/ct in 4 wks as per pulmonary HUE HUIZAR MD Feb 09, 2017 10:33
[2017-02-09 10:50] VITALS: BP 138/58
[2017-02-09] MEDS ORDERED: LEVO750T31 PO (13:41)
--- NOTE | 2017-02-09 13:55 | PDOC3 ---
Discharge Summary Visit Information Date of Admission: Feb 01, 2017 Date of Discharge: Feb 09, 2017 Admitting Diagnosis: pneumonia Final Diagnosis 1. sepsis and Neutropenic fever in a patient with refractory myelodysplastic syndrome 2. Myelodysplastic syndrome. off chemotherapy w 3. Pancytopenia, and Anemia secondary to myelodysplastic syndrome and chemo 4. right upper lobe pneumonia. 5. Pneumonia 6. Atelectasis 7. CAD with CABG 8. HTN controlled 9. DM2 controlled 10 . hypomagnesemia 11. ckd3 12. mild malnutrition 13. mild elevated transaminitis Problems Medical Problems: (1) Lactic acid acidosis Status: Acute (2) Pancytopenia Status: Acute (3) Sepsis Status: Acute Brief Hospital Course Allergies Allergies Coded Allergies Type Severity Reaction Last Updated Verified Iodinated Contrast- Oral and IV Dye Allergy Intermediate BAD RASH 01/20/17 Yes Vital Signs Vital Signs Date Time Temp Pulse Resp B/P (MAP) Pulse Ox O2 Delivery O2 Flow Rate FiO2 02/09/17 10:50 98.1 70 2 138/58 (84) 96 Room Air 98.1 Lab Results Laboratory Tests Test 02/07/17 16:20 02/07/17 20:40 02/08/17 04:40 02/08/17 07:13 Glucose (Fingerstick) 166 mg/dL (70-99) 256 mg/dL (70-99) 160 mg/dL (70-99) White Blood Count 1.8 x10^3/uL (4.0-11.0) Red Blood Count 3.25 x10^6/uL (4.30-5.70) Hemoglobin 10.2 g/dL (13.0-17.5) Hematocrit 28.4 % (39.0-53.0) Mean Corpuscular Volume 87 fL (79-100) Mean Corpuscular Hemoglobin 31 pg (25-35) Mean Corpuscular Hemoglobin Concent 36 g/dL (31-37) Red Cell Distribution Width 15.8 % (11.5-14.5) Platelet Count 33 x10^3/uL (140-400) Neutrophils (%) (Auto) 65 % (31-73) Lymphocytes (%) (Auto) 24 % (24-48) Monocytes (%) (Auto) 10 % (0-9) Eosinophils (%) (Auto) 1 % (0-3) Basophils (%) (Auto) 0 % (0-3) Neutrophils # (Auto) 1.2 x10^3uL (1.8-7.7) Lymphocytes # (Auto) 0.4 x10^3/uL (1.0-4.8) Monocytes # (Auto) 0.2 x10^3/uL (0.0-1.1) Eosinophils # (Auto) 0.0 x10^3/uL (0.0-0.7) Basophils # (Auto) 0.0 x10^3/uL (0.0-0.2) Sodium Level 136 mmol/L (136-145) Potassium Level 3.4 mmol/L (3.5-5.1) Chloride Level 103 mmol/L (98-107) Carbon Dioxide Level 21 mmol/L (21-32) Anion Gap 12 (6-14) Blood Urea Nitrogen 19 mg/dL (8-26) Creatinine 1.3 mg/dL (0.7-1.3) Estimated GFR (Cockcroft-Gault) 52.1 Glucose Level 185 mg/dL (70-99) Calcium Level 8.4 mg/dL (8.5-10.1) Test 02/08/17 11:40 02/08/17 16:43 02/08/17 20:54 02/09/17 07:19 Glucose (Fingerstick) 136 mg/dL (70-99) 233 mg/dL (70-99) 177 mg/dL (70-99) 122 mg/dL (70-99) Test 02/09/17 08:00 02/09/17 11:46 White Blood Count 1.7 x10^3/uL (4.0-11.0) Red Blood Count 3.29 x10^6/uL (4.30-5.70) Hemoglobin 10.2 g/dL (13.0-17.5) Hematocrit 29.5 % (39.0-53.0) Mean Corpuscular Volume 90 fL (79-100) Mean Corpuscular Hemoglobin 31 pg (25-35) Mean Corpuscular Hemoglobin Concent 34 g/dL (31-37) Red Cell Distribution Width 16.3 % (11.5-14.5) Platelet Count 31 x10^3/uL (140-400) Neutrophils (%) (Auto) 60 % (31-73) Lymphocytes (%) (Auto) 25 % (24-48) Monocytes (%) (Auto) 12 % (0-9) Eosinophils (%) (Auto) 1 % (0-3) Basophils (%) (Auto) 1 % (0-3) Neutrophils # (Auto) 1.0 x10^3uL (1.8-7.7) Lymphocytes # (Auto) 0.4 x10^3/uL (1.0-4.8) Monocytes # (Auto) 0.2 x10^3/uL (0.0-1.1) Eosinophils # (Auto) 0.0 x10^3/uL (0.0-0.7) Basophils # (Auto) 0.0 x10^3/uL (0.0-0.2) Sodium Level 140 mmol/L (136-145) Potassium Level 3.4 mmol/L (3.5-5.1) Chloride Level 106 mmol/L (98-107) Carbon Dioxide Level 25 mmol/L (21-32) Anion Gap 9 (6-14) Blood Urea Nitrogen 17 mg/dL (8-26) Creatinine 1.1 mg/dL (0.7-1.3) Estimated GFR (Cockcroft-Gault) 63.2 Glucose Level 123 mg/dL (70-99) Calcium Level 7.7 mg/dL (8.5-10.1) Glucose (Fingerstick) 205 mg/dL (70-99) Laboratory Tests Test 02/08/17 16:43 02/08/17 20:54 02/09/17 07:19 02/09/17 08:00 Glucose (Fingerstick) 233 mg/dL (70-99) 177 mg/dL (70-99) 122 mg/dL (70-99) White Blood Count 1.7 x10^3/uL (4.0-11.0) Red Blood Count 3.29 x10^6/uL (4.30-5.70) Hemoglobin 10.2 g/dL (13.0-17.5) Hematocrit 29.5 % (39.0-53.0) Mean Corpuscular Volume 90 fL (79-100) Mean Corpuscular Hemoglobin 31 pg (25-35) Mean Corpuscular Hemoglobin Concent 34 g/dL (31-37) Red Cell Distribution Width 16.3 % (11.5-14.5) Platelet Count 31 x10^3/uL (140-400) Neutrophils (%) (Auto) 60 % (31-73) Lymphocytes (%) (Auto) 25 % (24-48) Monocytes (%) (Auto) 12 % (0-9) Eosinophils (%) (Auto) 1 % (0-3) Basophils (%) (Auto) 1 % (0-3) Neutrophils # (Auto) 1.0 x10^3uL (1.8-7.7) Lymphocytes # (Auto) 0.4 x10^3/uL (1.0-4.8) Monocytes # (Auto) 0.2 x10^3/uL (0.0-1.1) Eosinophils # (Auto) 0.0 x10^3/uL (0.0-0.7) Basophils # (Auto) 0.0 x10^3/uL (0.0-0.2) Sodium Level 140 mmol/L (136-145) Potassium Level 3.4 mmol/L (3.5-5.1) Chloride Level 106 mmol/L (98-107) Carbon Dioxide Level 25 mmol/L (21-32) Anion Gap 9 (6-14) Blood Urea Nitrogen 17 mg/dL (8-26) Creatinine 1.1 mg/dL (0.7-1.3) Estimated GFR (Cockcroft-Gault) 63.2 Glucose Level 123 mg/dL (70-99) Calcium Level 7.7 mg/dL (8.5-10.1) Test 02/09/17 11:46 Glucose (Fingerstick) 205 mg/dL (70-99) Brief Hospital Course Mr. Gomez is a 86 old w/ myelodysplastic syndrome and he was started on chemotherapy with Vidaza on 08/25/2014. He received cycle #19, day #7 on 01/27/2016. s/p [id number] on 01/03/17 .s/p PRBC transfusion. Admit with fever, T102, cough with clear sputum x1week. no chest pain, weakness and debility, pancytopenia CXR revealed worsening pneumonia RUL, CT scan chest listed below broad abx, tapered by ID consult Heme and PULM followed 7 additional days PO levaquin Discharge Information Condition at Discharge: Improved Follow Up: Weeks Disposition/Orders: D/C to Home w/ HH Scheduled Diphenhydramine Hcl (Diphenhydramine Hcl), 25 MG PO QHS, (Reported) Gabapentin (Gabapentin), 300 MG PO BID, (Reported) Insulin Detemir (Levemir Flextouch), 10 UNIT SQ QHS, (Reported) Omeprazole (Prilosec), 20 MG PO DAILY, (Reported) Oseltamivir Phosphate (Tamiflu), 1 CAP PO BID Scheduled PRN Ondansetron (Zofran Odt), 1 TAB PO PRN PRN for NAUSEA, (Reported) Patient Instructions Patient Instructions TIMe > 30min CT Impression: 1. Consolidating infiltrate in the right upper lobe with air bronchograms. 2. No central bronchial occlusive lesion noted. 3. Bilateral effusions trace on the left and small on the right. 4. Atelectasis or mild infiltrates in the lower lobes more on the left than on the right. 5. Prominent calcification and cyst at the upper pole of the right kidney, the right kidney may be abnormal but is just below the imaging. WENDY MATT MD Feb 09, 2017 13:55
== END 2017-02-09 15:00 | disposition home health service (06) | DRG 871 ==
LOC: ER 18:24 → 5 NORTH 19:58
PROVIDERS: ADMIT Internal Medicine; ATTEND Internal Medicine
PROC: 30233N1 Transfusion of Nonautologous Red Blood Cells into Peripheral Vein, Percutaneous Approach (ICD-10-PCS; principal; 2017-02-02)
DX: A41.9 Sepsis, unspecified organism (principal); J18.1 Lobar pneumonia, unspecified organism; D61.810 Antineoplastic chemotherapy induced pancytopenia; J44.0 Chronic obstructive pulmonary disease with (acute) lower respiratory infection; E44.1 Mild protein-calorie malnutrition; D69.59 Other secondary thrombocytopenia; E11.22 Type 2 diabetes mellitus with diabetic chronic kidney disease; I12.9 Hypertensive chronic kidney disease with stage 1 through stage 4 chronic kidney disease, or unspecified chronic kidney disease; I25.10 Atherosclerotic heart disease of native coronary artery without angina pectoris; N18.3 Chronic kidney disease, stage 3 (moderate); Z66 Do not resuscitate; E83.42 Hypomagnesemia; D89.9 Disorder involving the immune mechanism, unspecified; R50.81 Fever presenting with conditions classified elsewhere; D46.9 Myelodysplastic syndrome, unspecified; D63.8 Anemia in other chronic diseases classified elsewhere; Z86.19 Personal history of other infectious and parasitic diseases; Z91.041 Radiographic dye allergy status; Z79.4 Long term (current) use of insulin; Z82.3 Family history of stroke; Z82.49 Family history of ischemic heart disease and other diseases of the circulatory system; Z85.46 Personal history of malignant neoplasm of prostate; Z87.891 Personal history of nicotine dependence; Z92.21 Personal history of antineoplastic chemotherapy; Z95.1 Presence of aortocoronary bypass graft; Z79.899 Other long term (current) drug therapy; Z79.1 Long term (current) use of non-steroidal anti-inflammatories (NSAID); Z79.2 Long term (current) use of antibiotics; Z68.21 Body mass index [BMI] 21.0-21.9, adult; D64.81 Anemia due to antineoplastic chemotherapy; T45.1X5A Adverse effect of antineoplastic and immunosuppressive drugs, initial encounter
CPT/HCPCS: 36415; 71010; 71020; 71250; 80048; 80053; 80202; 81001; 82550; 82962; 83605; 83735; 84100; 84484; 85007; 85027; 85610; 85730; 86850; 86900; 86901; 86920; 87040; 87070; 87205; 87449; 94250; 94760; 96365; 96366; 96368; C1887; J0692; J1200; J1442; J1815; J1956; J2543; J3370; J7030; J7040; J7050; J7060; P9016; Q0163; 92610; 97116; 97530; 97535; 99285-25; A6539

== ENCOUNTER 2017-02-27 21:25 | Emergency (ER) | payer MEDICARE ==
[~2017-02-27] VITALS: Ht 170.2 cm; Wt 61.2 kg
[~2017-02-27 21:25] MED LIST changes: +LEVO750T31 PO
[2017-02-27 22:35] VITALS: BP 123/58
[2017-02-27] MEDS ORDERED: fentaNYL PF VIAL 100 MCG/2 ML VIAL IV PRN (23:00)
--- NOTE | 2017-02-27 23:05 | ED.ADGEN ---
Past Medical History Past Medical History: Cancer, Diabetes-Type II Additional Past Medical Histor: bone marrow and prostate cancer Past Surgical History: Coronary Bypass Surgery Additional Past Surgical Histo: RENAL STENTS 2010 (RIGHT SIDE) Alcohol Use: None Drug Use: None Adult General Chief Complaint Chief Complaint: CONTISPATION HPI HPI Patient is a 86 year old woman, history of type 2 diabetes mellitus, prostate cancer, myeloproliferative disorder, who presents emergency department complaining of constipation, abdominal rectal pain that began yesterday. Patient states that he tried taking stool softeners at home without relief, states she is having intense pain in his rectum and lower abdominal area, states he has been unable to urinate since early this morning due to the pain is experiencing. He denies any fevers or chills, any nausea or vomiting, any injuries, any weakness numbness or tingling. No chest pain or shortness breath, no fevers or chills. Is scheduled receive a blood transfusion tomorrow. Last bowel movement was 2 days ago. Review of Systems Review of Systems Constitutional: Denies fever or chills. [] Eyes: Denies change in visual acuity. [] HENT: Denies nasal congestion or sore throat. [] Respiratory: Denies cough or shortness of breath. [] Cardiovascular: Denies chest pain or edema. [] GI: Denies nausea, vomiting, bloody stools or diarrhea. Complaining of abdominal pain and constipation. : Denies dysuria. [] Unable to pass urine since early this morning. Musculoskeletal: Denies back pain or joint pain. [] Integument: Denies rash. [] Neurologic: Denies headache, focal weakness or sensory changes. [] Endocrine: Denies polyuria or polydipsia. [] Lymphatic: Denies swollen glands. [] Psychiatric: Denies depression or anxiety. [] Current Medications Current Medications Current Medications Medications (Trade) Dose Ordered Sig/Khadra Start Time Stop Time Status Last Admin Dose Admin Cephalexin HCl (Keflex) 500 mg 1X ONCE 02/28/17 01:30 02/28/17 01:31 DC 02/28/17 01:34 500 MG Fentanyl Citrate (Fentanyl 2ml Vial) 25 mcg PRN Q15MIN PRN 02/27/17 23:00 02/28/17 04:01 DC 02/27/17 23:50 25 MCG Lidocaine HCl (Glydo (Lidocaine) Jelly) 6 mansi STK-MED ONCE 02/28/17 01:33 02/28/17 01:34 DC Phenazopyridine HCl (Pyridium) 200 mg 1X ONCE 02/28/17 01:30 02/28/17 01:31 DC 02/28/17 01:35 200 MG Sodium Chloride 500 ml @ 500 mls/hr 1X ONCE 02/27/17 23:30 02/28/17 00:29 DC 02/27/17 23:30 500 MLS/HR Allergies Allergies Allergies Coded Allergies Type Severity Reaction Last Updated Verified Iodinated Contrast- Oral and IV Dye Allergy Intermediate BAD RASH 01/20/17 Yes Physical Exam Physical Exam Constitutional: Well developed, well nourished, no acute distress, non-toxic appearance. [] HENT: Normocephalic, atraumatic, bilateral external ears normal, oropharynx moist, no oral exudates, nose normal. [] Eyes: PERRLA, EOMI, conjunctiva normal, no discharge. [] Neck: Normal range of motion, no tenderness, supple, no stridor. [] Cardiovascular:Heart rate regular rhythm, no murmur, S1, S2, rubs or gallops. [] Lungs & Thorax: Bilateral breath sounds clear to auscultation, no wheezing, rhonchi, rales. No chest or crepitus or tenderness. [] Abdomen: Bowel sounds normal, soft, tenderness to palpation throughout the mid and lower abdomen, no rigidity, positive for mild voluntary guarding, no rebound no masses, no pulsatile masses. [] Skin: Warm, dry, no erythema, no rash. [] Back: No tenderness, no CVA tenderness. [] Extremities: No tenderness, no cyanosis, no clubbing, ROM intact, no edema. [] Neurologic: Alert and oriented X 3, normal motor function, normal sensory function, no focal deficits noted. [] Psychologic: Affect normal, judgement normal, mood normal. [] Rectal examination: Patient with brown stool noted in vault, there is palpable stool, no gross blood, noted to have external hemorrhoids that evidence of thrombosis or acute abnormality. Current Patient Data Vital Signs Vital Signs Date Time Temp Pulse Resp B/P (MAP) Pulse Ox O2 Delivery O2 Flow Rate FiO2 02/27/17 23:50 18 100 Room Air 02/27/17 22:35 88 123/58 (79) 02/27/17 21:39 98.2 98.2 Lab Values Laboratory Tests Test 02/27/17 23:32 02/28/17 03:25 White Blood Count 3.6 x10^3/uL (4.0-11.0) L Red Blood Count 2.37 x10^6/uL (4.30-5.70) L Hemoglobin 7.3 g/dL (13.0-17.5) L Hematocrit 21.2 % (39.0-53.0) L Mean Corpuscular Volume 89 fL (79-100) Mean Corpuscular Hemoglobin 31 pg (25-35) Mean Corpuscular Hemoglobin Concent 35 g/dL (31-37) Red Cell Distribution Width 15.0 % (11.5-14.5) H Platelet Count 60 x10^3/uL (140-400) L Neutrophils (%) (Auto) 83 % (31-73) H Lymphocytes (%) (Auto) 16 % (24-48) L Monocytes (%) (Auto) 1 % (0-9) Eosinophils (%) (Auto) 1 % (0-3) Basophils (%) (Auto) 1 % (0-3) Neutrophils # (Auto) 3.0 x10^3uL (1.8-7.7) Lymphocytes # (Auto) 0.6 x10^3/uL (1.0-4.8) L Monocytes # (Auto) 0.0 x10^3/uL (0.0-1.1) Eosinophils # (Auto) 0.0 x10^3/uL (0.0-0.7) Basophils # (Auto) 0.0 x10^3/uL (0.0-0.2) Segmented Neutrophils % 75 % (35-66) H Band Neutrophils % 6 % (0-9) Lymphocytes % 17 % (24-48) L Monocytes % 1 % (0-10) Basophils % 1 % (0-3) Toxic Granulation Slight Platelet Estimate Decreased (ADEQUATE) Sodium Level 137 mmol/L (136-145) Potassium Level 4.6 mmol/L (3.5-5.1) Chloride Level 102 mmol/L (98-107) Carbon Dioxide Level 23 mmol/L (21-32) Anion Gap 12 (6-14) Blood Urea Nitrogen 29 mg/dL (8-26) H Creatinine 1.4 mg/dL (0.7-1.3) H Estimated GFR (Cockcroft-Gault) 47.8 BUN/Creatinine Ratio 21 (6-20) H Glucose Level 242 mg/dL (70-99) H Calcium Level 9.2 mg/dL (8.5-10.1) Total Bilirubin 0.4 mg/dL (0.2-1.0) Aspartate Amino Transferase (AST) 62 U/L (15-37) H Alanine Aminotransferase (ALT) 84 U/L (16-63) H Alkaline Phosphatase 85 U/L (46-116) Total Protein 7.2 g/dL (6.4-8.2) Albumin 2.9 g/dL (3.4-5.0) L Albumin/Globulin Ratio 0.7 (1.0-1.7) L Lipase 144 U/L (73-393) Urine Collection Type Unknown Urine Color Lenora Urine Clarity Clear Urine pH 6.0 Urine Specific Roslyn 1.020 Urine Protein Negative mg/dL (NEG-TRACE) Urine Glucose (UA) 500 mg/dL (NEG) Urine Ketones (Stick) Negative mg/dL (NEG) Urine Blood Large (NEG) Urine Nitrite Negative (NEG) Urine Bilirubin Negative (NEG) Urine Urobilinogen Dipstick 0.2 mg/dL (0.2 mg/dL) Urine Leukocyte Esterase Small (NEG) Urine RBC 20-40 /HPF (0-2) Urine WBC 1-4 /HPF (0-4) Urine Squamous Epithelial Cells Occ /LPF Urine Bacteria 0 /HPF (0-FEW) Urine Hyaline Casts Few /HPF Urine Mucus Mod /LPF Laboratory Tests 02/27/17 23:32 Laboratory Tests 02/27/17 23:32 EKG EKG Not indicated. [] Radiology/Procedures Radiology/Procedures Not indicated. [] Course & Med Decision Making Course & Med Decision Making Pertinent Labs and Imaging studies reviewed. (See chart for details) Delay in obtaining additional laboratory studies and imaging as patient initially declined evaluation, simply wanted "you guys to take it out". After discussion at bedside regarding concerns and need for additional laboratory studies and evaluation based on patient's history and presentation, patient was agreeable. Patient's examination reveals soft large amounts of stool in the vault. Patient was seen and abdominal pain, some distention, also sprinting urinary retention, noted to have about 500 mL of urine on initial bladder scan is unable to pass urine in the ED due to "pain and tightness". Is agreeable to receiving laboratory studies and imaging in the ED to rule out any occult abnormalities. Studies and imaging were obtained, CT reveals fecal impaction. Discussed with patient disimpaction in the ED with potential enema, he states he is not interested at this time, is still unable to void, now has about 600 mL in the bladder. After discussion at bedside, attempted to place Brady catheter without success 2. Patient then stated that he would be willing to undergo manual disimpaction and enema in the ED to see if this would allow relaxation of his bladder, also received Pyridium. Patient received a milk of molasses enema in the emergency department, disimpaction with good effect, large amounts of stool removed. Patient states that he is feeling "emptied out" , much better, is now able pass urine without issue in the ED. Patient's laboratory studies are line with prior, has history of type studies mellitus, is hyperglycemic, but it is now early in the morning, and he has not taken meds since last night. 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 No evidence of infection noted in patient's urinalysis. Lengthy discussion at bedside regarding dietary adjustments, use of Colace, and enema as needed. Patient discharged home in stable condition with family, with plan and precautions as stated. Dragon Disclaimer Dragon Disclaimer This electronic medical record was generated, in whole or in part, using a voice recognition dictation system. Departure Impression: Primary Impression: Fecal impaction Additional Impression: Urinary retention Disposition: HOME, SELF-CARE Condition: IMPROVED Problem Qualifiers TERESO ORTIZ DO Feb 27, 2017 23:05
[2017-02-27] MEDS ORDERED: IV NORMAL SALINE 500ML BAG 500 ML IV ONE (23:30)
[2017-02-27 23:39] LABS: BASO % 1 % (0-3); EOS % 1 % (0-3); HEMATOCRIT 21.2 % (39.0-53.0); HEMOGLOBIN 7.3 g/dL (13.0-17.5); LYMPH # 0.6 x10^3/uL (1.0-4.8); LYMPH % 16 % (24-48); MEAN CORPUSCULAR HEMOGLOBIN 31 pg (25-35); MEAN CORPUSCULAR HGB CONC 35 g/dL (31-37); MEAN CORPUSCULAR VOLUME 89 fL (79-100); MONO % 1 % (0-9); NEUT % 83 % (31-73); PLATELET COUNT 60 x10^3/uL (140-400); RED BLOOD COUNT 2.37 x10^6/uL (4.30-5.70); WHITE BLOOD COUNT 3.6 x10^3/uL (4.0-11.0)
[2017-02-27 23:46] LABS: CALCIUM 9.2 mg/dL (8.5-10.1); CREATININE 1.4 mg/dL (0.7-1.3); GFR 47.8; POTASSIUM 4.6 mmol/L (3.5-5.1)
--- NOTE | 2017-02-27 23:46 | RAD ---
EXAM: Abdomen and pelvis CT without intravenous contrast. HISTORY: Abdominal pain, constipation. TECHNIQUE: Computed tomographic images of the abdomen and pelvis were obtained without contrast, given patient's iodine allergy. Multiplanar reformatting was performed. PQRS compliance statement: One or more of the following individualized dose reduction techniques were utilized for this examination: 1. Automated exposure control 2. Adjustment of the mA and/or kV according to patient size 3. Use of iterative reconstruction technique COMPARISON: None. FINDINGS: The visualized lung bases demonstrate atelectasis and chronic appearing changes. Detailed evaluation of the intra-abdominal and pelvic organs and vascular structures is limited secondary to lack of IV contrast. Within these limitations, the liver, spleen, pancreas, and adrenal glands demonstrate no focal abnormality. There is minimal posterior layering calcification within the gallbladder suggesting cholelithiasis without evidence of cholecystitis. A couple nonobstructing calculi are present within the left kidney measuring up to 3 mm. There is significant atrophy of the right kidney with several large, coarse calcifications present, which appear to reside within the cortex. A double-J ureteral stent is present with the proximal portion looped within the right renal collecting system and the distal portion looped within the urinary bladder lumen. No perinephric or periureteral stranding is seen. There is mild prominence of the right renal collecting system. The GI tract demonstrates no dilated bowel loops to suggest obstruction. There is prominent fecal impaction within the rectum. Distal colonic diverticula are present without evidence of acute inflammation. Other scattered formed fecal material is present more proximally within the colon. The urinary bladder is grossly unremarkable. No intra-abdominal or pelvic free fluid, free air or significant lymphadenopathy is seen. Aorta is normal in caliber, with significant atherosclerotic calcification present. Overlying soft tissues and visualized osseous structures demonstrate no acute or suspicious finding. Significant degenerative changes present throughout the spine. IMPRESSION: 1. Fecal impaction in the rectum. Distal colonic diverticulosis. 2. 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 Bilateral renal calculi present, detailed above. Electronically signed by: Julia Camacho MD (02/27/2017 11:43 PM) [facility]
[2017-02-27 23:52] LABS: ALBUMIN 2.9 g/dL (3.4-5.0); ALBUMIN/GLOBULIN RATIO 0.7 (1.0-1.7); TOTAL BILIRUBIN 0.4 mg/dL (0.2-1.0); TOTAL PROTEIN 7.2 g/dL (6.4-8.2)
[2017-02-28] MEDS ORDERED: PHENAZOPYRIDINE 200 MG TABLET. PO ONE (01:30)
[2017-02-28] MEDS ORDERED: CEPHALEXIN 250 MG CAPSULE. PO ONE (01:30)
[2017-02-28] MEDS ORDERED: LIDOCAINE 2% JELLY 6ML IN APPLICATOR. ONE (01:33)
[2017-02-28] MEDS ORDERED: PHEN-318 PO (01:35)
[2017-02-28] MEDS ORDERED: CEPH-264 PO (01:35)
[2017-02-28 04:01] LABS: BILIRUBIN,URINE NEGATIVE (NEG); GLUCOSE,URINE 500 mg/dL (NEG); PROTEIN,URINE NEGATIVE (NEG-TRACE); UROBILINOGEN,URINE 0.2 mg/dL (0.2 mg/dL)
[2017-02-28 04:25] LABS: BACTERIA,URINE 0 /HPF (0-FEW); NITRITE,URINE NEGATIVE (NEG); RBC,URINE 20-40 /HPF (0-2); SQUAMOUS EPITHELIAL CELL,UR OCC /LPF
[2017-02-28 05:32] LABS: % BASOS 1 % (0-3); PLT ESTIMATE DECREASED (ADEQUATE); TOXIC GRANULATION SLIGHT
== END 2017-02-28 04:01 | disposition home or self-care (01) ==
LOC: ER 21:25
DX: K56.41 Fecal impaction (principal); R33.9 Retention of urine, unspecified; E11.9 Type 2 diabetes mellitus without complications; Z95.1 Presence of aortocoronary bypass graft; Z91.041 Radiographic dye allergy status
CPT/HCPCS: 36415; 74176; 80053; 81001; 83690; 85007; 85027; 87086; 96361; 96374; 99285; J3010; J7040

== ENCOUNTER → 2017-04-14 | Outpatient (CLI) | payer MEDICARE ==
[2017-04-14] VITALS (7 sets, daily range): BP systolic 117–151; BP diastolic 51–87
[~2017-04-14] MED LIST changes: +ACETAMINOPHEN 325 MG TABLET. PO ONE; +FUROSEMIDE 20 MG/2 ML VIAL. IVP ONE; +FUROSEMIDE 20 MG/2 ML VIAL. ONE; +diphenhydrAMINE HCL 25 MG CAPSULE PO ONE
[2017-04-14 10:08] LABS: HEMATOCRIT 22.7 % (39.0-53.0); HEMOGLOBIN 7.7 g/dL (13.0-17.5)
== END | disposition home or self-care (01) ==
LOC: OPS 09:40
PROVIDERS: ATTEND Internal Medicine Hematology & Oncology
DX: D64.9 Anemia, unspecified (principal)
CPT/HCPCS: 36415; 36430; 85014; 85018; 86850; 86900; 86901; 86920; P9016; Q0163